=== PATIENT | female | born 1980 | race Caucasian/White ===

== ENCOUNTER 2017-12-03 16:13 | Emergency (ER) | payer OTHER ==
[2017-12-03] MEDS ORDERED: FENTANYL CITR 100 MCG/2 ML ONE (17:26)
[2017-12-03] MEDS ORDERED: NA CHLORIDE 0.9% 1,000 ML ONE (17:26)
[2017-12-03] MEDS ORDERED: PROMETHAZINE 25 MG/ML VIAL ONE (17:30)
[2017-12-03 17:32] LABS: Absolute Lymphocytes (CBC) 2.2 K/uL (0.7-4.9); Absolute Monocytes 0.5 K/uL (0.1-1.3); Absolute Neutrophil 3.1 K/uL (1.8-8.0); Basophils % 0.6 % (0-1.3); Eosinophils % 2.8 % (0-4.4); Lymphocytes % 36.6 % (15.3-44.8); MCH 30.4 pg (27.0-35.0); MCV 90.6 fL (80-100); MPV 8.9 fL (7.6-11.3); RBC Red Blood Cell Count 4.97 M/uL (3.86-4.86)
[2017-12-03 17:57] LABS: Bicarbonate 29 mEq/L (21-31); Glucose Level 102 mg/dL (65-120); Potassium 3.5 mEq/L (3.6-5.0); Sodium Level 140 mEq/L (135-145)
[2017-12-03 18:01] LABS: Urine RBC <5 /HPF (NONE SEEN)
[2017-12-03 18:02] LABS: Urine Bacteria 20-50 /HPF (<20); Urine Culture Reflex Order REFLEXED
[2017-12-03 18:06] LABS: Urine Blood NEGATIVE (NEG); Urine Glucose NEGATIVE (NEG); Urine Protein NEGATIVE (NEG); Urine Specific Gravity <1.005 (1.005-1.030)
[2017-12-03 18:07] LABS: Lipase 19 U/L (22-51)
[2017-12-03 18:13] LABS: ALT/SGPT 70 IU/L (10-60); AST/SGOT 47 IU/L (10-42); Albumin 4.3 g/dL (3.2-5.5); Alkaline Phosphatase 84 IU/L (42-121); Amylase Level 34 U/L (28-100); BUN Blood Urea Nitrogen 7 mg/dL (6-20); Bilirubin Direct < 0.1 mg/dL (0-0.2); Bilirubin Total 0.3 mg/dL (0.3-1.2); Protein, Total 7.5 g/dL (6.0-8.3)
[2017-12-03] MEDS ORDERED: KETOROLAC 30 MG/ML INJ ONE (18:45)
--- NOTE | 2017-12-03 18:50 | ER ---
Nurse's Notes [facility] Name: Brenda Lara Age: 36 yrs Sex: Female : 1980 Arrival Date: 12/03/2017 Time: 16:14 Bed 13 Private MD: Rony Dorsey E Diagnosis: Upper abdominal pain, unspecified Presentation: 12/03 16:32 Presenting complaint: Patient states: I'm having really bad pain in my stomach that aj1 shoots to my back. I haven't eaten anything all day because of the pain. I saw Dr. Randle today and he told me to come here and see Dr. Garcia. I had a HIDA scan and an ultrasound. He told me its my gallbladder and my hernia and I have some inflammation in my esophagus. Reports pain the the RUQ, N/V for the past 2 weeks. Denies diarrhea, fever. Abd is nondistended, soft, tender to RUQ. Transition of care: patient was not received from another setting of care. Onset of symptoms was November 19, 2017. Care prior to arrival: None. 16:32 Method Of Arrival: Ambulatory aj1 16:32 Acuity: BIGG 3 aj1 Triage Assessment: 16:39 General: Appears uncomfortable, Behavior is calm, cooperative. Pain: Complains of pain aj1 in right upper quadrant. 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 - Social history:: Smoking status: Patient uses tobacco products, States she quit 2 weeks ago after her symptoms started. Screenin:41 Abuse screen: Denies threats or abuse. Denies injuries from another. Nutritional aj1 screening: No deficits noted. Tuberculosis screening: No symptoms or risk factors identified. 18:33 Fall Risk None identified. aj1 Assessment: 16:41 General: Appears uncomfortable, Behavior is cooperative, appropriate for age, restless. aj1 Pain: Complains of pain in right upper quadrant Pain radiates to back Pain currently is 6 out of 10 on a pain scale. Quality of pain is described as sharp, Pain began 2 weeks ago Is continuous, Aggravated by eating. Neuro: Level of Consciousness is awake, alert, obeys commands, Oriented to person, place, time, situation, Speech is normal, Facial symmetry appears normal. Cardiovascular: Patient's skin is warm and dry. Respiratory: Airway is patent Respiratory effort is even, unlabored, Respiratory pattern is regular, symmetrical. GI: Abdomen is non-distended, Bowel sounds present X 4 quads. Abd is soft X 4 quads Abdomen is tender to palpation in right upper quadrant Guarding noted Reports upper abdominal pain, nausea, vomiting. : No signs and/or symptoms were reported regarding the genitourinary system. EENT: No signs and/or symptoms were reported regarding the EENT system. Derm: Skin is pink, warm \T\ dry. normal. Musculoskeletal: Circulation, motion, and sensation intact. 17:42 Reassessment: Patient appears in no apparent distress at this time. No changes from aj1 previously documented assessment. Patient and/or family updated on plan of care and expected duration. Pain level reassessed. Patient is alert, oriented x 3, equal unlabored respirations, skin warm/dry/pink. 18:31 Reassessment: Patient and/or family updated on plan of care and expected duration. Pain aj1 level reassessed. General: Appears in no apparent distress. uncomfortable. Neuro: Level of Consciousness is awake, alert, obeys commands, Speech is normal, Facial symmetry appears normal. Cardiovascular: Patient's skin is warm and dry. Respiratory: Airway is patent Respiratory effort is even, unlabored, Respiratory pattern is regular, symmetrical. GI: Abdomen is non-distended. Derm: Skin is pink, warm \T\ dry. normal. Musculoskeletal: Circulation, motion, and sensation intact. 19:14 Reassessment: Patient appears in no apparent distress at this time. No changes from aj1 previously documented assessment. Patient and/or family updated on plan of care and expected duration. Pain level reassessed. Patient is alert, oriented x 3, equal unlabored respirations, skin warm/dry/pink. 20:10 Reassessment: Patient appears in no apparent distress at this time. No changes from aj1 previously documented assessment. Patient and/or family updated on plan of care and expected duration. Pain level reassessed. Patient is alert, oriented x 3, equal unlabored respirations, skin warm/dry/pink. Vital Signs: 16:39 BP 153 / 99; Pulse 107; Resp 16; Temp 98.7(TE); Pulse Ox 98% on R/A; Weight 77.11 kg aj1 (R); Height 5 ft. 5 in. (165.10 cm) (R); Pain 6/10; 17:42 BP 127 / 94; Pulse 95; Resp 18; Pulse Ox 95% on R/A; aj1 19:14 BP 114 / 83; Pulse 92; Resp 18; Pulse Ox 99% ; aj1 20:10 BP 120 / 75; Pulse 88; Resp 18; Pulse Ox 98% on R/A; aj1 16:39 Body Mass Index 28.29 (77.11 kg, 165.10 cm) aj1 ED Course: 16:14 Patient arrived in ED. as 16:14 Rony Dorsey MD is Private Physician. as 16:25 [facility] snw 16:25 Rony Parekh MD is Attending Physician. snw 16:32 Alejandrina Dawson, ARINA is Primary Nurse. aj1 16:36 Triage completed. aj1 16:39 Arm band placed on. aj1 16:41 Patient has correct armband on for positive identification. Bed in low position. aj1 16:41 No provider procedures requiring assistance completed. aj1 17:26 Initial lab(s) drawn, by me, sent to lab. Urine collected: clean catch specimen, clear. dh3 Inserted saline lock: 20 gauge in right antecubital area, using aseptic technique. Blood collected. 20:11 IV discontinued, intact, bleeding controlled, No redness/swelling at site. Pressure aj1 dressing applied. Administered Medications: 17:39 Drug: NS 0.9% 1000 ml Route: IV; Rate: 1 bolus; Site: right antecubital; aj1 19:15 Follow up: IV Status: Completed infusion; IV Intake: 1000ml aj1 17:39 Drug: fentaNYL (PF) 25 mcg Route: IVP; Site: right antecubital; aj1 19:15 Follow up: Response: No adverse reaction aj1 17:39 Drug: Phenergan 6.25 mg Route: IVP; Site: right antecubital; aj1 19:16 Follow up: Response: No adverse reaction aj1 19:15 Drug: TORadol 60 mg Route: IM; Site: right gluteus; aj1 20:12 Follow up: Response: No adverse reaction aj1 Intake: 19:15 IV: 1000ml; Total: 1000ml. aj1 Outcome: 18:50 Discharge ordered by MD. vargas 20:12 Discharged to home ambulatory. aj1 20:12 Condition: good 20:12 Discharge instructions given to patient, Instructed on discharge instructions, follow up and referral plans. medication usage, Demonstrated understanding of instructions, follow-up care, medications, Prescriptions given X 4. 20:13 Patient left the ED. aj1 Signatures: Alejandrina Dawson RN RN aj1 Susy Sutton, INTERNAL GRINDER SET UP OPERATOR-C INTERNAL GRINDER SET UP OPERATOR-Stephaniew Fallon De Dios Deanna [facility]
--- NOTE | 2017-12-03 18:51 | EDPHYS ---
Physician Documentation [facility] Name: Brenda Lara Age: 36 yrs Sex: Female : 1980 Arrival Date: 12/03/2017 Time: 16:14 Bed 13 Private MD: Rony Dorsey E ED Physician Rony Parekh HPI: 12/03 16:45 This 36 yrs old Female presents to ER via Ambulatory with complaints of snw Gallbladder. 16:45 Onset: The symptoms/episode began/occurred gradually, 2 week(s) ago, and became worse snw and became persistent. Associated signs and symptoms: Pertinent positives: abdominal pain. The patient has experienced a previous episode. The patient has been recently seen by a physician: Dr. Randle with similar presenting complaints, and was sent to the [facility] Emergency Department for further evaluation. 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 - Social history:: Smoking status: Patient uses tobacco products, States she quit 2 weeks ago after her symptoms started. ROS: 16:45 Constitutional: Negative for fever, chills, and weight loss, Eyes: Negative for injury, snw pain, redness, and discharge, ENT: Negative for injury, pain, and discharge, Neck: Negative for injury, pain, and swelling, Cardiovascular: Negative for chest pain, palpitations, and edema, Respiratory: Negative for shortness of breath, cough, wheezing, and pleuritic chest pain, Back: Negative for injury and pain, : Negative for injury, bleeding, discharge, and swelling, MS/Extremity: Negative for injury and deformity, Skin: Negative for injury, rash, and discoloration, Neuro: Negative for headache, weakness, numbness, tingling, and seizure. 16:45 Abdomen/GI: Positive for abdominal pain, nausea and vomiting, abdominal cramps, anorexia. Exam: 16:44 Constitutional: This is a well developed, well nourished patient who is awake, alert, snw and in no acute distress. Head/Face: Normocephalic, atraumatic. Eyes: Pupils equal round and reactive to light, extra-ocular motions intact. Lids and lashes normal. Conjunctiva and sclera are non-icteric and not injected. Cornea within normal limits. Periorbital areas with no swelling, redness, or edema. ENT: Nares patent. No nasal discharge, no septal abnormalities noted. Tympanic membranes are normal and external auditory canals are clear. Oropharynx with no redness, swelling, or masses, exudates, or evidence of obstruction, uvula midline. Mucous membranes moist. Neck: Trachea midline, no thyromegaly or masses palpated, and no cervical lymphadenopathy. Supple, full range of motion without nuchal rigidity, or vertebral point tenderness. No Meningismus. Chest/axilla: Normal chest wall appearance and motion. Nontender with no deformity. No lesions are appreciated. Cardiovascular: Regular rate and rhythm with a normal S1 and S2. No gallops, murmurs, or rubs. Normal PMI, no JVD. No pulse deficits. Respiratory: Lungs have equal breath sounds bilaterally, clear to auscultation and percussion. No rales, rhonchi or wheezes noted. No increased work of breathing, no retractions or nasal flaring. Back: No spinal tenderness. No costovertebral tenderness. Full range of motion. Skin: Warm, dry with normal turgor. Normal color with no rashes, no lesions, and no evidence of cellulitis. MS/ Extremity: Pulses equal, no cyanosis. Neurovascular intact. Full, normal range of motion. Neuro: Awake and alert, GCS 15, oriented to person, place, time, and situation. Cranial nerves II-XII grossly intact. Motor strength 5/5 in all extremities. Sensory grossly intact. Cerebellar exam normal. Normal gait. Psych: Awake, alert, with orientation to person, place and time. Behavior, mood, and affect are within normal limits. 16:44 Abdomen/GI: Inspection: obese Bowel sounds: diminished, Palpation: moderate abdominal tenderness, in the right upper quadrant. Vital Signs: 16:39 BP 153 / 99; Pulse 107; Resp 16; Temp 98.7(TE); Pulse Ox 98% on R/A; Weight 77.11 kg aj1 (R); Height 5 ft. 5 in. (165.10 cm) (R); Pain 6/10; 17:42 BP 127 / 94; Pulse 95; Resp 18; Pulse Ox 95% on R/A; aj1 19:14 BP 114 / 83; Pulse 92; Resp 18; Pulse Ox 99% ; aj1 20:10 BP 120 / 75; Pulse 88; Resp 18; Pulse Ox 98% on R/A; aj1 16:39 Body Mass Index 28.29 (77.11 kg, 165.10 cm) aj1 MDM: 16:33 Patient medically screened. snw 18:51 Data reviewed: vital signs, nurses notes. Data interpreted: Pulse oximetry: on room air snw is 95 %. Interpretation: acceptable. Counseling: I had a detailed discussion with the patient and/or guardian regarding: the historical points, exam findings, and any diagnostic results supporting the discharge/admit diagnosis, the presence of at least one elevated blood pressure reading (>120/80) during this emergency department visit, lab results, radiology results, the need for outpatient follow up, to return to the emergency department if symptoms worsen or persist or if there are any questions or concerns that arise at home. Special discussion: Based on the patient's Hx, exam, and Dx evaluation, there is no indication for emergent surgery or inpatient Tx. It is understood by the patient/guardian that if the Sx's persist or worsen they need to return immediately for re-evaluation. I have referred the patient to see his PCP for further evaluation of high blood pressure. Based on the history and exam findings, there is no indication for further emergent testing or inpatient evaluation. I discussed with the patient/guardian the need to see the general surgeon for further evaluation of the symptoms. I discussed with the patient/guardian the need to see the primary care provider for further evaluation of the symptoms. 12/03 16:42 Order name: Amylase, Serum; Complete Time: 18:47 snw 12/03 16:42 Order name: Basic Metabolic Panel; Complete Time: 18:47 snw 12/03 16:42 Order name: CBC with Diff; Complete Time: 17:38 snw 12/03 16:42 Order name: Creatinine for Radiology; Complete Time: 18:47 snw 12/03 16:42 Order name: Hepatic Function; Complete Time: 18:47 snw 12/03 16:42 Order name: Lipase; Complete Time: 18:47 snw 12/03 16:42 Order name: Urine Microscopic Only; Complete Time: 18:02 snw 12/03 17:41 Order name: Urine Dipstick--Ancillary (enter results); Complete Time: 18:47 ag 12/03 17:41 Order name: Urine --Ancillary (enter results); Complete Time: 18:47 ag 12/03 18:03 Order name: Urine Culture EDCA 12/03 16:42 Order name: Urine Test (obtain specimen); Complete Time: 17:27 snw 12/03 16:42 Order name: IV Saline Lock; Complete Time: 17:27 snw 12/03 16:42 Order name: Labs collected and sent; Complete Time: 17:27 snw 12/03 16:42 Order name: Urine Dipstick-Ancillary (obtain specimen); Complete Time: 17:27 snw Administered Medications: 17:39 Drug: NS 0.9% 1000 ml Route: IV; Rate: 1 bolus; Site: right antecubital; aj1 19:15 Follow up: IV Status: Completed infusion; IV Intake: 1000ml aj1 17:39 Drug: fentaNYL (PF) 25 mcg Route: IVP; Site: right antecubital; aj1 19:15 Follow up: Response: No adverse reaction aj1 17:39 Drug: Phenergan 6.25 mg Route: IVP; Site: right antecubital; aj1 19:16 Follow up: Response: No adverse reaction aj1 19:15 Drug: TORadol 60 mg Route: IM; Site: right gluteus; aj1 20:12 Follow up: Response: No adverse reaction aj1 Disposition: 12/03/17 18:50 Discharged to Home. Impression: Upper abdominal pain, unspecified. - Condition is Stable. - Discharge Instructions: Abdominal Pain, Adult, Biliary Colic, Fat and Cholesterol Restricted Diet, Hypertension, Peptic Ulcer Disease. - Prescriptions for Bentyl 20 mg Oral Tablet - take 1 tablet by ORAL route every 6 hours As needed; 20 tablet. Nexium 20 mg Oral Capsule - take 1 capsule by ORAL route once daily; 20 capsule. Zofran 4 mg Oral Tablet - take 1 tablet by ORAL route every 12 hours As needed; 6 tablet. Diclofenac Sodium 75 mg Oral Tablet Sustained Release - take 1 tablet by ORAL route 2 times per day; 30 tablet. - Medication Reconciliation Form, Thank You Letter, Antibiotic Education, Prescription Opioid Use form. - Follow up: Private Physician; When: 2 - 3 days; Reason: Recheck today's complaints, Continuance of care, Re-evaluation by your physician. Follow up: Emergency Department; When: As needed; Reason: Worsening of condition. Addendum: 12/05/2017 07:39 Co-signature as Attending Physician, Rony Parekh MD I agree with the assessment and w a plan of care. Signatures: Dispatcher [employer] Alejandrina Krishna RN RN aj1 Susy Sutton, UMAIR-C SKI MOLDER-Csnw Rony Parekh MD MD tx
== END 2017-12-03 20:13 | disposition home or self-care (01) ==
LOC: ER 16:13
DX: R10.10 Upper abdominal pain, unspecified (principal); Z72.0 Tobacco use
CPT/HCPCS: 36415; 80048; 80076; 81003; 81015; 81025; 82150; 83690; 85025; 87086; 87088; 96361; 96372; 96374; 96375; 99284; J2550; J3010; J7030

== ENCOUNTER 2018-01-08 06:37 | Day surgery (SDC) | payer OTHER ==
[2018-01-07 14:00] LABS: Absolute Lymphocytes (CBC) 2.3 K/uL (0.7-4.9); Absolute Monocytes 0.6 K/uL (0.1-1.3); Absolute Neutrophil 4.1 K/uL (1.8-8.0); Basophils % 0.8 % (0-1.3); Eosinophils % 2.9 % (0-4.4); Lymphocytes % 31.8 % (15.3-44.8); MCH 30.8 pg (27.0-35.0); MCV 89.7 fL (80-100); MPV 9.5 fL (7.6-11.3); RBC Red Blood Cell Count 4.79 M/uL (3.86-4.86)
[2018-01-07 14:15] LABS: Potassium 4.1 mEq/L (3.6-5.0)
--- NOTE | 2018-01-07 14:15 | RAD REPORT ---
EXAM DESCRIPTION: Taran Glasgow (2 Views)01/07/2018 2:06 pm CLINICAL HISTORY: Abdominal pain/preop COMPARISON: 2016 FINDINGS: The lungs appear clear of acute infiltrate. The heart is normal size IMPRESSION: No acute abnormalities displayed
--- NOTE | 2018-01-07 14:33 | EKG ---
Test Date: 2018-01-07 Test Time: 13:42:44 Psychologist Military Personnel: RENETTA MEASUREMENT RESULTS: Intervals: Rate: 86 AR: 140 QRSD: 88 QT: 388 QTc: 464 [place]: P: 49 AR: 140 QRS: 30 T: 30 INTERPRETIVE STATEMENTS: Normal sinus rhythm Prolonged QT Abnormal ECG No previous ECG available for comparison Electronically Signed On 01-07-18 14:33:29 CDT by Dewayne Jimenez
[2018-01-08] MEDS ORDERED: BUPIVACAINE 0.5% Inj,MDV 50 mL VIAL ONE (06:53)
[2018-01-08] MEDS ORDERED: MIDAZOLAM HCL 2 MG/2 ML INJ ONE ×2 (06:59→09:14)
[2018-01-08] MEDS ORDERED: LIDOCAINE 2% MPF 5 ML VIAL ONE (06:59)
[2018-01-08] MEDS ORDERED: PROPOFOL 200 MG/20 ML VIAL IV ONE (06:59)
[2018-01-08] MEDS ORDERED: FENTANYL CITR 100 MCG/2 ML ONE ×2 (06:59→07:59)
[2018-01-08] MEDS ORDERED: ROCURONIUM 50 MG/5 ML VIAL IV ONE (06:59)
[2018-01-08] MEDS ORDERED: ONDANSETRON 4 MG/2 ML VIAL ONE ×2 (07:08→08:52)
[2018-01-08] MEDS ORDERED: Ringers Lactate 1,000 ML IV ONE (07:12)
[2018-01-08] MEDS ORDERED: CEFOXITIN/SWI 1gm 1 GM/10 ML SYR ONE (07:12)
[2018-01-08] MEDS ORDERED: ESMOLOL HCL 10 ML IV ONE (08:14)
[2018-01-08] MEDS ORDERED: KETOROLAC 30 MG/ML INJ ONE (08:15)
[2018-01-08] MEDS ORDERED: GLYCOPYRROLATE 0.2 MG/ML SYR ONE (08:15)
[2018-01-08] MEDS ORDERED: NEOSTIGMINE 1 MG/ML -5 ML SYRINGE ONE (08:16)
[2018-01-08] MEDS: MEPERIDINE HCL 50 MG/ML AMP ONE ×9 (08:44→09:29)
[2018-01-08] MEDS ORDERED: HYDROCODONE/APAP 7.5/325 MG TAB ONE (09:59)
--- NOTE | 2018-01-08 11:38 | OP ---
Date of Procedure: 01/08/2018 Surgeon: Jacques Garcia MD Gas Main Fitter: DIANA Dhaliwal Preoperative Diagnosis: Chronic cholecystitis and biliary dyskinesia. Postoperative Diagnosis: Chronic cholecystitis and biliary dyskinesia. Procedure: Laparoscopic cholecystectomy. Estimated Blood Loss: Minimal. Specimen: Gallbladder. Findings: As above. Anesthesia: General. Complications: None. Disposition: The patient tolerated the procedure in stable condition and taken to the Recovery in go od general condition. Procedure In Detail: The patient was brought to the OR and placed in the supine position. General a nesthesia was begun. The patient was prepped and draped in usual sterile fashion. Marcaine 0.5% was infiltrated locally. A 15-blade was used to make a 1 cm supraumbilical midline incision. Subcutane ous tissue divided. The fascia was identified and divided. A #1 Vicryl stay suture was placed. Per itoneal cavity was entered with sharp and blunt dissection. A 12 mm trocar was placed into the perit sprague cavity under direct vision. Pneumoperitoneum was established and then three 5-mm trocars were placed, 1 in the epigastrium just to the right of midline and 2 in the right subcostal region. Lapar oscopy revealed chronic inflammation of the gallbladder with some adhesions to the gallbladder, which were taken down with sharp and blunt dissection. Bleeding controlled with cautery. Fundus identifi ed, retracted superiorly. Infundibulum was identified and retracted inferolaterally. Cystic duct an d cystic artery were clearly identified with blunt dissection. Clips placed. Both structures were d ivided. Cautery used to remove the gallbladder from the liver bed. Bleeding on the liver bed was co ntrolled with cautery. The gallbladder was retrieved through the umbilicus via an EndoCatch bag. Ri t upper quadrant was irrigated. Effluent was clear. No evidence of bleeding or bile leakage appre ciated. Subsequently, all trocars were removed under direct vision. Stay sutures were tied to each other to reapproximate the fascial defect. Subcutaneous wounds were irrigated. Bleeding controlled cautery. A 3-0 chromic used to approximate the subcutaneous tissue and close the skin. Sterile dres sing was applied. The patient was awakened and taken to Recovery in good general condition. Discharge Note: The patient will go to Day Surgery and home when stable. Disposition: Home. Condition: Stable. Discharge Instructions: Resume home medications and diet. Activity as tolerated. No heavy lifting. Remove outer dressing in 2 days. Shower. Keep wound clean and dry. Keep Steri-Strips on at all t imes. Tylenol No. 3 one tablet p.o. q.4 p.r.n. pain. Follow up in my office in a week. Call for ap pointment. Incentive spirometry as ordered. PETER/SAMARA Voice ID: [id number] Report ID: [id number]
== END 2018-01-08 10:48 | disposition home or self-care (01) ==
LOC: OR 06:37
PROVIDERS: ATTEND Surgery
PROC: 0FT44ZZ Resection of Gallbladder, Percutaneous Endoscopic Approach (ICD-10-PCS; principal; 2018-01-08 07:30)
DX: K81.1 Chronic cholecystitis (principal); K82.8 Other specified diseases of gallbladder; K21.9 Gastro-esophageal reflux disease without esophagitis; F17.200 Nicotine dependence, unspecified, uncomplicated
CPT/HCPCS: 36415; 71046; 80048; 85025; 88304; 88305; 93005; J2175; J2250; J2405; J2710; J3010

== ENCOUNTER 2018-03-02 14:18 | Emergency (ER) | payer OTHER ==
--- NOTE | 2018-03-02 16:20 | EKG ---
Test Date: 2018-03-02 Test Time: 14:33:54 Stone Layout Marker: ROBERTH MEASUREMENT RESULTS: Intervals: Rate: 79 MD: 152 QRSD: 84 QT: 364 QTc: 417 [place]: P: 51 MD: 152 QRS: 49 T: 24 INTERPRETIVE STATEMENTS: Normal sinus rhythm ST & T wave abnormality, consider anterior ischemia Abnormal ECG Compared to ECG 01/07/2018 13:42:44 ST (T wave) deviation now present Possible ischemia now present Prolonged QT interval no longer present Electronically Signed On 03-02-18 16:19:43 CDT by Dewayne Jimenez
[2018-03-02] MEDS ORDERED: METHYLPREDNISOLONE 125 MG INJ ONE (16:48)
--- NOTE | 2018-03-02 16:48 | EDPHYS ---
Physician Documentation [facility] Name: Brenda Lara Age: 37 yrs Sex: Female : 1980 Arrival Date: 03/02/2018 Time: 14:21 Bed 23 Private MD: Rony Dorsey E ED Physician Mak Flor HPI: 03/02 18:30 This 37 yrs old Female presents to ER via Ambulatory with complaints of Rash, kdr Headache. 18:30 This 37 yrs old Female presents to ER via Ambulatory with complaints of Rash, kdr Headache. 18:30 The patient's rash thought to be caused by an unknown cause. The rash is located on the kdr body diffusely. The rash can be described as diffuse, erythematous, flat, macular. Onset: The symptoms/episode began/occurred 3 week(s) ago. Severity of symptoms: At their worst the symptoms were mild moderate just prior to arrival, in the emergency department the symptoms are unchanged. Treatment given at home: OTC lotion/cream steroid lotion/cream. The patient has not experienced similar symptoms in the past. The patient has not recently seen a physician. The patient has also c/o SILVA for the last four days - typical SILVA. She frequently has syncopal episodes with the SILVA and she had one today. Nothing else new or unusual. Rash began on her feet and spread to the rest of her body and there are no lesions from the chin down including her hands and feet. 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 - Social history:: Smoking status: Patient uses tobacco products, smokes one-half pack cigarettes per day. - Ebola Screening: : No symptoms or risks identified at this time. ROS: 18:30 Constitutional: Negative for fever, chills, and weight loss, Eyes: Negative for injury, kdr pain, redness, and discharge, ENT: Negative for injury, pain, and discharge, Neck: Negative for injury, pain, and swelling, Cardiovascular: Negative for chest pain, palpitations, and edema, Respiratory: Negative for shortness of breath, cough, wheezing, and pleuritic chest pain, Abdomen/GI: Negative for abdominal pain, nausea, vomiting, diarrhea, and constipation, Back: Negative for injury and pain, : Negative for injury, bleeding, discharge, and swelling, MS/Extremity: Negative for injury and deformity, Neuro: Negative for headache, weakness, numbness, tingling, and seizure activity. Psych: Negative for depression, anxiety, suicide ideation, homicidal ideation, and hallucinations, Allergy/Immunology: Negative for hives, rash, and allergies, Endocrine: Negative for neck swelling, polydipsia, polyuria, polyphagia, and marked weight changes, Hematologic/Lymphatic: Negative for swollen nodes, abnormal bleeding, and unusual bruising. 18:30 Skin: Positive for cellulitis, erythema, lesions, rash. Exam: 18:30 Constitutional: This is a well developed, well nourished patient who is awake, alert, kdr and in no acute distress. Head/Face: Normocephalic, atraumatic. Eyes: Pupils equal round and reactive to light, extra-ocular motions intact. Lids and lashes normal. Conjunctiva and sclera are non-icteric and not injected. Cornea within normal limits. Periorbital areas with no swelling, redness, or edema. Neck: Trachea midline, no thyromegaly or masses palpated, and no cervical lymphadenopathy. Supple, full range of motion without nuchal rigidity, or vertebral point tenderness. No Meningismus. Chest/axilla: Normal chest wall appearance and motion. Nontender with no deformity. No lesions are appreciated. Cardiovascular: Regular rate and rhythm with a normal S1 and S2. No gallops, murmurs, or rubs. Normal PMI, no JVD. No pulse deficits. Respiratory: Lungs have equal breath sounds bilaterally, clear to auscultation and percussion. No rales, rhonchi or wheezes noted. No increased work of breathing, no retractions or nasal flaring. Abdomen/GI: Soft, non-tender, with normal bowel sounds. No distension or tympany. No guarding or rebound. No evidence of tenderness throughout. Back: No spinal tenderness. No costovertebral tenderness. Full range of motion. MS/ Extremity: Pulses equal, no cyanosis. Neurovascular intact. Full, normal range of motion. Neuro: Awake and alert, GCS 15, oriented to person, place, time, and situation. Cranial nerves II-XII grossly intact. Motor strength 5/5 in all extremities. Sensory grossly intact. Cerebellar exam normal. Normal gait. Psych: Awake, alert, with orientation to person, place and time. Behavior, mood, and affect are within normal limits. 18:30 Skin: Appearance: normal except for affected area, rash a moderate rash is noted, rash can be described as macular, scabies, and is diffusely located. Vital Signs: 14:32 BP 127 / 93; Pulse 83; Resp 18 S; Temp 97.3(TE); Pulse Ox 98% on R/A; Weight 74.84 kg aa5 (R); Height 5 ft. 5 in. (165.10 cm) (R); Pain 6/10; 17:06 BP 126 / 92; Pulse 72; Resp 18; Pulse Ox 97% on R/A; kr2 14:32 Body Mass Index 27.46 (74.84 kg, 165.10 cm) aa5 MDM: 16:47 Patient medically screened. kdr 18:30 Data reviewed: vital signs, nurses notes, lab test result(s), radiologic studies. kdr Counseling: I had a detailed discussion with the patient and/or guardian regarding: the historical points, exam findings, and any diagnostic results supporting the discharge/admit diagnosis, lab results, radiology results, the need for outpatient follow up. Special discussion: I discussed with the patient/guardian in detail that at this point there is no indication for admission to the hospital. It is understood, however, that if the symptoms persist or worsen the patient needs to return immediately for re-evaluation. 03/02 15:49 Order name: EKG Electrocardiogram EDMS Administered Medications: 16:51 Drug: SOLU-Medrol 125 mg Route: IM; Site: right gluteus; kr2 17:06 Follow up: Response: No adverse reaction kr2 16:51 Drug: Benadryl 25 mg Route: PO; kr2 17:06 Follow up: Response: Medication administered at discharge. kr2 16:51 Drug: Pepcid 20 mg Route: PO; kr2 17:05 Follow up: Response: Medication administered at discharge. kr2 Point of Care Testing: Blood Glucose: 14:38 Blood Glucose: 94 mg/dL; aa5 Ranges: Critical Glucose Levels:Adult <50 mg/dl or >400 mg/dl <40 mg/dl or >180 mg/dl Disposition: 03/02/18 16:47 Discharged to Home. Impression: Rash and other nonspecific skin eruption. - Condition is Stable. - Discharge Instructions: Rash, [id number]. - Prescriptions for permethrin 5 % Topical cream - apply 1 application by TOPICAL route every 14 days Repeat once in 14 days leave on for 8-14 hr, then remove by thorough washing; 60 gram. Benadryl 25 mg Oral Capsule - take 1 capsule by ORAL route every 6 hours As needed; 30 tablet. Medrol (Dandy) 4 mg Oral Tablets, Dose Pack - take 1 tablet by ORAL route as directed - follow package instructions; 1 packet. Pepcid 20 mg Oral Tablet - take 1 tablet by ORAL route once daily; 20 tablet. - Medication Reconciliation Form, Thank You Letter, Antibiotic Education, Prescription Opioid Use form. - Follow up: Rony Dorsey MD; When: 2 - 3 days; Reason: If symptoms return, Further diagnostic work-up, Recheck today's complaints, Continuance of care, Re-evaluation by your physician. - Problem is an ongoing problem. - Symptoms have improved. Signatures: Dispatcher [employer] EDMS Mak Flor MD MD [facility] Mary Thomas RN RN aa5 Norma Song RN RN kr2 Corrections: (The following items were deleted from the chart) 17:06 16:47 03/02/2018 16:47 Discharged to Home. Impression: Rash and other nonspecific skin kr2 eruption. Condition is Stable. Forms are Medication Reconciliation Form, Thank You Letter, Antibiotic Education, Prescription Opioid Use. Follow up: Rony Dorsey; When: 2 - 3 days; Reason: If symptoms return, Further diagnostic work-up, Recheck today's complaints, Continuance of care, Re-evaluation by your physician. Problem is an ongoing problem. Symptoms have improved. kdr
--- NOTE | 2018-03-02 16:48 | ER ---
Nurse's Notes [facility] Name: Brenda Lara Age: 37 yrs Sex: Female : 1980 Arrival Date: 03/02/2018 Time: 14:21 Bed 23 Private MD: Rony Dorsey E Diagnosis: Rash and other nonspecific skin eruption Presentation: 03/02 14:29 Presenting complaint: Patient states: "I have this rash all over my legs and arms". Pt aa5 also c/o migraine x 3 days ago. Pt states "I think I passed out today at work because my co-workers told me, all I remember was getting dizzy and going to take a seat". Transition of care: patient was not received from another setting of care. Onset of symptoms was March 02, 2018. Risk Assessment: Do you want to hurt yourself or someone else? Patient reports no desire to harm self or others. Initial Sepsis Screen: Does the patient meet any 2 criteria? No. Patient's initial sepsis screen is negative. Does the patient have a suspected source of infection? No. Patient's initial sepsis screen is negative. Care prior to arrival: None. 14:29 Method Of Arrival: Ambulatory aa5 14:29 Acuity: BIGG 3 aa5 Triage Assessment: 16:51 Headache History: The patient has had previous headaches and this one is similar to kr2 previous episodes. General: Appears in no apparent distress. comfortable, well developed, well nourished, Behavior is calm, cooperative, appropriate for age. Pain: Complains of pain in face Pain radiates to scalp Pain currently is 8 out of 10 on a pain scale. Quality of pain is described as aching, Pain began gradually, Is continuous, Alleviated by rest, Aggravated by increased activity, Noted to be grimacing, Also complains of sleeplessness. Neuro: Level of Consciousness is awake, alert, obeys commands, Oriented to person, place, time, situation, Appropriate for age. 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 - Social history:: Smoking status: Patient uses tobacco products, smokes one-half pack cigarettes per day. - Ebola Screening: : No symptoms or risks identified at this time. Screenin:51 Abuse screen: Denies threats or abuse. Denies injuries from another. Nutritional kr2 screening: No deficits noted. Tuberculosis screening: No symptoms or risk factors identified. Fall Risk None identified. Assessment: 16:30 General: Appears in no apparent distress. comfortable, well groomed, well developed, kr2 well nourished, Behavior is calm, cooperative, appropriate for age. Pain: Complains of pain in face Pain radiates to scalp Pain currently is 8 out of 10 on a pain scale. Quality of pain is described as aching. Neuro: Level of Consciousness is awake, alert, obeys commands, Oriented to person, place, time, situation, Appropriate for age. Cardiovascular: Capillary refill < 3 seconds in bilateral fingers Patient's skin is warm and dry. Respiratory: Airway is patent Respiratory effort is even, unlabored, Respiratory pattern is regular, symmetrical, Breath sounds are clear bilaterally. GI: Abdomen is flat, non-distended. : Denies burning with urination. EENT: Nares are clear bilaterally Oral mucosa is moist. Derm: Skin is healthy with good turgor, Skin is pink, warm \\T\\ dry. Rash noted that is itchy, red, on back, abdomen, right leg and left leg. Musculoskeletal: Circulation, motion, and sensation intact. Vital Signs: 14:32 BP 127 / 93; Pulse 83; Resp 18 S; Temp 97.3(TE); Pulse Ox 98% on R/A; Weight 74.84 kg aa5 (R); Height 5 ft. 5 in. (165.10 cm) (R); Pain 6/10; 17:06 BP 126 / 92; Pulse 72; Resp 18; Pulse Ox 97% on R/A; kr2 14:32 Body Mass Index 27.46 (74.84 kg, 165.10 cm) aa5 ED Course: 14:21 Patient arrived in ED. sb2 14:22 Rony Dorsey MD is Private Physician. sb2 14:30 Triage completed. aa5 14:30 Arm band placed on. aa5 14:36 EKG completed in triage. Results shown to MD. aa5 16:28 Mak Flor MD is Attending Physician. kdr 16:46 Norma Song, RN is Primary Nurse. kr2 16:47 Rony Dorsey MD is Referral Physician. kdr 16:53 Patient has correct armband on for positive identification. Bed in low position. Call kr2 light in reach. Side rails up X 1. Pulse ox on. NIBP on. Door closed. Warm blanket given. Head of bed elevated. 17:05 No provider procedures requiring assistance completed. Patient did not have IV access kr2 during this emergency room visit. Administered Medications: 16:51 Drug: SOLU-Medrol 125 mg Route: IM; Site: right gluteus; kr2 17:06 Follow up: Response: No adverse reaction kr2 16:51 Drug: Benadryl 25 mg Route: PO; kr2 17:06 Follow up: Response: Medication administered at discharge. kr2 16:51 Drug: Pepcid 20 mg Route: PO; kr2 17:05 Follow up: Response: Medication administered at discharge. kr2 Point of Care Testing: Blood Glucose: 14:38 Blood Glucose: 94 mg/dL; aa5 Ranges: Outcome: 16:47 Discharge ordered by MD. kdr 17:05 Discharged to home ambulatory. kr2 17:05 Condition: good 17:05 Discharge instructions given to patient, Instructed on discharge instructions, follow up and referral plans. medication usage, Demonstrated understanding of instructions, follow-up care, medications, Prescriptions given X 4. 17:06 Patient left the ED. kr2 Signatures: Mak Flor MD MD [facility] Mary Thomas RN RN aa5 Norma Song, ARINA RN kr2 Natalia Mclean sb2
[2018-03-02] MEDS ORDERED: FAMOTIDINE 20 MG TAB ONE (16:50)
[2018-03-02] MEDS ORDERED: DIPHENHYDRAMINE 25 MG TAB/CAP ONE (16:50)
== END 2018-03-02 17:06 | disposition home or self-care (01) ==
LOC: ER 14:18
DX: R21 Rash and other nonspecific skin eruption (principal); G43.909 Migraine, unspecified, not intractable, without status migrainosus; M79.7 Fibromyalgia; F41.9 Anxiety disorder, unspecified; F17.210 Nicotine dependence, cigarettes, uncomplicated; R55 Syncope and collapse
CPT/HCPCS: 82962; 93005; 96372; 99283; J2930

== ENCOUNTER 2018-05-07 22:08 | Emergency (ER) | payer OTHER ==
[2018-05-07] MEDS ORDERED: METOCLOPRAMIDE 10 MG/2mL INJ ONE (23:11)
[2018-05-07 23:18] LABS: Urine Blood NEGATIVE (NEG); Urine Glucose NEGATIVE (NEG); Urine Protein NEGATIVE (NEG); Urine Specific Gravity 1.015 (1.005-1.030); Urine pH 6.5 (5.0-7.0)
[2018-05-07] MEDS ORDERED: DIPHENHYDRAMINE 50 MG/ML VIAL ONE (23:25)
[2018-05-07 23:28] LABS: Absolute Lymphocytes (CBC) 3.1 K/uL (0.7-4.9); Absolute Monocytes 0.8 K/uL (0.1-1.3); Absolute Neutrophil 4.9 K/uL (1.8-8.0); Basophils % 0.9 % (0-1.3); Eosinophils % 2.6 % (0-4.4); Hematocrit 44.3 % (36.0-45.0); Lymphocytes % 33.5 % (15.3-44.8); MCH 31.5 pg (27.0-35.0); MCV 90.7 fL (80-100); Monocytes % 9.2 % (3.3-12.3); RBC Red Blood Cell Count 4.88 M/uL (3.86-4.86)
[2018-05-07 23:40] LABS: Protime INR 1.02
[2018-05-07 23:44] LABS: BUN Blood Urea Nitrogen 13 mg/dL (7-18); Bicarbonate 29 mmol/L (21-32); Glucose Level 94 mg/dL (74-106); Magnesium 2.3 mg/dL (1.8-2.4); Potassium 3.7 mmol/L (3.5-5.1); Sodium Level 142 mmol/L (136-145); Troponin (Emerg Dept Use Only) < 0.02 ng/mL (0.0-0.045)
[2018-05-08] MEDS ORDERED: KETOROLAC 30 MG/ML INJ ONE (00:06)
--- NOTE | 2018-05-08 02:02 | EDPHYS ---
Physician Documentation [facility] Name: Brenda Lara Age: 37 yrs Sex: Female : 1980 Arrival Date: 05/07/2018 Time: 22:16 Bed 13 Private MD: ED Physician Mak Flor HPI: 05/07 23:19 This 37 yrs old Female presents to ER via Ambulatory with complaints of jr8 Headache, Chest Wall Pain. 23:19 The patient complains of pain to the diffuse. Onset: The symptoms/episode jr8 began/occurred acutely, today. Associated signs and symptoms: Pertinent positives: chest pain. The patient has not experienced similar symptoms in the past. The patient has not recently seen a physician. Patient has history of migraines but medicine not working. Stated that her chest is now hurting and has been hurting for the past couple of weeks without relief. 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 - Social history:: Smoking status: Patient uses tobacco products, smokes one-half pack cigarettes per day. - Ebola Screening: : No symptoms or risks identified at this time. ROS: 23:19 Eyes: Negative for injury, pain, redness, and discharge, ENT: Negative for injury, jr8 pain, and discharge, Neck: Negative for injury, pain, and swelling, Respiratory: Negative for shortness of breath, cough, wheezing, and pleuritic chest pain, Abdomen/GI: Negative for abdominal pain, nausea, vomiting, diarrhea, and constipation, Back: Negative for injury and pain, MS/Extremity: Negative for injury and deformity, Skin: Negative for injury, rash, and discoloration. 23:19 Cardiovascular: Positive for chest pain, Negative for edema, orthopnea, palpitations, paroxysmal nocturnal dyspnea. 23:19 Neuro: Positive for headache, Negative for altered mental status, dizziness, gait disturbance, hearing loss, loss of consciousness, numbness, seizure activity, speech changes, syncope, near syncope, tingling, tinnitus, tremor, visual changes, weakness. Exam: 23:19 Eyes: Pupils equal round and reactive to light, extra-ocular motions intact. Lids and jr8 lashes normal. Conjunctiva and sclera are non-icteric and not injected. Cornea within normal limits. Periorbital areas with no swelling, redness, or edema. ENT: Nares patent. No nasal discharge, no septal abnormalities noted. Tympanic membranes are normal and external auditory canals are clear. Oropharynx with no redness, swelling, or masses, exudates, or evidence of obstruction, uvula midline. Mucous membranes moist. Neck: Trachea midline, no thyromegaly or masses palpated, and no cervical lymphadenopathy. Supple, full range of motion without nuchal rigidity, or vertebral point tenderness. No Meningismus. Cardiovascular: Regular rate and rhythm with a normal S1 and S2. No gallops, murmurs, or rubs. Normal PMI, no JVD. No pulse deficits. Respiratory: Lungs have equal breath sounds bilaterally, clear to auscultation and percussion. No rales, rhonchi or wheezes noted. No increased work of breathing, no retractions or nasal flaring. Abdomen/GI: Soft, non-tender, with normal bowel sounds. No distension or tympany. No guarding or rebound. No evidence of tenderness throughout. Back: No spinal tenderness. No costovertebral tenderness. Full range of motion. Skin: Warm, dry with normal turgor. Normal color with no rashes, no lesions, and no evidence of cellulitis. MS/ Extremity: Pulses equal, no cyanosis. Neurovascular intact. Full, normal range of motion. Neuro: Awake and alert, GCS 15, oriented to person, place, time, and situation. Cranial nerves II-XII grossly intact. Motor strength 5/5 in all extremities. Sensory grossly intact. Cerebellar exam normal. Normal gait. 23:19 Chest/axilla: Inspection: normal, Palpation: tenderness, that is moderate, of the jr8 xyphoid area, that totally reproduces the patient's complaints. Vital Signs: 22:20 BP 115 / 83; Pulse 84; Resp 18; Temp 98.2; Pulse Ox 100% on R/A; Weight 74.84 kg (R); ak1 Height 5 ft. 5 in. (165.10 cm) (R); Pain 8/10; 23:31 BP 144 / 88; Pulse 82; Resp 15; Pulse Ox 99% on R/A; tl2 05/08 00:05 BP 132 / 81; Pulse 70; Resp 15; Pulse Ox 98% on 2 lpm NC; Pain 3/10; ak1 02:17 BP 122 / 91; Pulse 65; Resp 16; Temp 98.1; Pulse Ox 97% on R/A; Pain 0/10; ak1 05/07 22:20 Body Mass Index 27.46 (74.84 kg, 165.10 cm) ak1 MDM: 05/07 22:30 Patient medically screened. [facility] 05/08 02:00 Data reviewed: vital signs, nurses notes, lab test result(s), EKG, radiologic studies, [facility] plain films, and as a result, I will discharge patient. Data interpreted: Pulse oximetry: on room air is 98 %. Interpretation: normal. 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 Response to treatment: the patient's symptoms have markedly improved after treatment. 05/07 22:55 Order name: Basic Metabolic Panel; Complete Time: 23:49 [facility] 05/07 22:55 Order name: CBC with Diff; Complete Time: 23:49 [facility] 05/07 22:55 Order name: Magnesium; Complete Time: 23:49 [facility] 05/07 22:55 Order name: PT-INR; Complete Time: 23:49 [facility] 05/07 22:55 Order name: Troponin (emerg Dept Use Only); Complete Time: 23:49 [facility] 05/07 23:07 Order name: Urine Dipstick--Ancillary (enter results); Complete Time: 23:19 [facility] 05/07 22:33 Order name: EKG; Complete Time: 22:33 [facility] 05/07 22:33 Order name: EKG - Nurse/Tech; Complete Time: 22:54 [facility] 05/07 22:55 Order name: XRAY Chest (1 view) [facility] 05/07 22:55 Order name: Cardiac monitoring; Complete Time: 22:59 [facility] 05/07 22:55 Order name: IV Saline Lock; Complete Time: 23:14 [facility] 05/07 22:55 Order name: Labs collected and sent; Complete Time: 23:14 [facility] 05/07 22:55 Order name: O2 Per Protocol; Complete Time: 22:58 [facility] 05/07 22:55 Order name: O2 Sat Monitoring; Complete Time: 22:58 [facility] 05/07 22:55 Order name: Urine Dipstick-Ancillary (obtain specimen); Complete Time: : Administered Medications: 05/07 22:56 CANCELLED (Physician Discretion): TORadol 30 mg IVP once 23:14 Drug: Reglan 10 mg Route: IVP; Site: right antecubital; ak1 05/08 00:03 Follow up: Response: No adverse reaction mo1 05/07 23:34 Drug: Benadryl 25 mg Route: IVP; Site: right antecubital; ak1 05/08 00:03 Follow up: Response: No adverse reaction ak1 00:03 Drug: TORadol 30 mg Route: IVP; Site: right antecubital; ak1 02:18 Follow up: Response: No adverse reaction ak1 Disposition: 02:50 Co-signature as Attending Physician, Mak Flor MD I agree with the assessment and kdr plan of care. Disposition: 05/08/18 02:02 Discharged to Home. Impression: Costochondritis . - Condition is Stable. - Discharge Instructions: Costochondritis. - Prescriptions for Ibuprofen 800 mg Oral Tablet - take 1 tablet by ORAL route every 8 hours As needed take with food; 30 tablet. - Medication Reconciliation Form, Thank You Letter, Antibiotic Education, Prescription Opioid Use form. - Follow up: Private Physician; When: 2 - 3 days; Reason: Recheck today's complaints, Continuance of care, Re-evaluation by your physician. - Problem is new. - Symptoms have improved. Signatures: Dispatcher [employer] EDMS Mak Flor MD MD kdr Roszak, Josh, PA PA jr8 Dorys Angulo, RN RN ak1 Corrections: (The following items were deleted from the chart) 05/07 22:56 22:56 TORadol 30 mg IVP once ordered. jr8 jr8 05/08 02:01 05/07 23:19 Eyes: Pupils equal round and reactive to light, extra-ocular motions jr8 intact. Lids and lashes normal. Conjunctiva and sclera are non-icteric and not injected. Cornea within normal limits. Periorbital areas with no swelling, redness, or edema. ENT: Nares patent. No nasal discharge, no septal abnormalities noted. Tympanic membranes are normal and external auditory canals are clear. Oropharynx with no redness, swelling, or masses, exudates, or evidence of obstruction, uvula midline. Mucous membranes moist. Neck: Trachea midline, no thyromegaly or masses palpated, and no cervical lymphadenopathy. Supple, full range of motion without nuchal rigidity, or vertebral point tenderness. No Meningismus. Chest/axilla: Normal chest wall appearance and motion. Nontender with no deformity. No lesions are appreciated. Cardiovascular: Regular rate and rhythm with a normal S1 and S2. No gallops, murmurs, or rubs. Normal PMI, no JVD. No pulse deficits. Respiratory: Lungs have equal breath sounds bilaterally, clear to auscultation and percussion. No rales, rhonchi or wheezes noted. No increased work of breathing, no retractions or nasal flaring. Abdomen/GI: Soft, non-tender, with normal bowel sounds. No distension or tympany. No guarding or rebound. No evidence of tenderness throughout. Back: No spinal tenderness. No costovertebral tenderness. Full range of motion. Skin: Warm, dry with normal turgor. Normal color with no rashes, no lesions, and no evidence of cellulitis. MS/ Extremity: Pulses equal, no cyanosis. Neurovascular intact. Full, normal range of motion. Neuro: Awake and alert, GCS 15, oriented to person, place, time, and situation. Cranial nerves II-XII grossly intact. Motor strength 5/5 in all extremities. Sensory grossly intact. Cerebellar exam normal. Normal gait. jr8 05/08 02:23 02:02 05/08/2018 02:02 Discharged to Home. Impression: Costochondritis . Condition is ak1 Stable. Forms are Medication Reconciliation Form, Thank You Letter, Antibiotic Education, Prescription Opioid Use. Follow up: Private Physician; When: 2 - 3 days; Reason: Recheck today's complaints, Continuance of care, Re-evaluation by your physician. Problem is new. Symptoms have improved. jr8
--- NOTE | 2018-05-08 02:02 | ER ---
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 Transition of care: patient was not received from another setting of care. Onset of symptoms is unknown. Risk Assessment: Do you want to hurt yourself or someone else? Patient reports no desire to harm self or others. Initial Sepsis Screen: Does the patient meet any 2 criteria? No. Patient's initial sepsis screen is negative. Does the patient have a suspected source of infection? No. Patient's initial sepsis screen is negative. Care prior to arrival: pt took tramadol at noon and pepcid and benadryl at 1600. 22:17 Acuity: BIGG 3 ak1 22:17 Method Of Arrival: Ambulatory ak1 Triage Assessment: 22:20 Headache History: The patient has had previous headaches and this one is similar to ak1 previous episodes. General: Appears in no apparent distress. Behavior is calm, cooperative. Pain: Pain currently is 8 out of 10 on a pain scale. 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 EENT: No signs and/or symptoms were reported regarding the EENT system. 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 Gait is steady, Speech is normal, Facial symmetry appears normal. 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 Respiratory: No deficits noted. GI: No signs and/or symptoms were reported involving the gastrointestinal system. : No signs and/or symptoms were reported regarding the genitourinary system. Derm: No signs and/or symptoms reported regarding the dermatologic system. Musculoskeletal: No signs and/or symptoms reported regarding the musculoskeletal system. 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 - Social history:: Smoking status: Patient uses tobacco products, smokes one-half pack cigarettes per day. - Ebola Screening: : No symptoms or risks identified at this time. Screenin:23 Abuse screen: Denies threats or abuse. Denies injuries from another. Nutritional ak1 screening: No deficits noted. Tuberculosis screening: No symptoms or risk factors identified. Fall Risk None identified. Assessment: 22:24 Pain: Complains of pain in xyphoid area, headache. ak1 22:24 Reassessment: see triage assessment. ak1 23:34 General: pt c/o SOB and pain, ERP notified with no new orders at this time. pt placed ak1 on 2L NC for comfort. . 05/08 00:05 Reassessment: Patient appears in no apparent distress at this time. No changes from ak1 previously documented assessment. 01:16 Reassessment: Patient states symptoms have improved. pt resting with eyes closed, resp ak1 even and unlabored. will continue to monitor. . Vital Signs: 05/07 22:20 BP 115 / 83; Pulse 84; Resp 18; Temp 98.2; Pulse Ox 100% on R/A; Weight 74.84 kg (R); ak1 Height 5 ft. 5 in. (165.10 cm) (R); Pain 8/10; 23:31 BP 144 / 88; Pulse 82; Resp 15; Pulse Ox 99% on R/A; tl2 05/08 00:05 BP 132 / 81; Pulse 70; Resp 15; Pulse Ox 98% on 2 lpm NC; Pain 3/10; ak1 02:17 BP 122 / 91; Pulse 65; Resp 16; Temp 98.1; Pulse Ox 97% on R/A; Pain 0/10; ak1 05/07 22:20 Body Mass Index 27.46 (74.84 kg, 165.10 cm) ak1 Vitals: 05/07 23:31 Cardiac Rhythm Assessment Sinus rhythm. tl2 ED Course: 22:16 Patient arrived in ED. ak1 22:19 Triage completed. ak1 22:20 Arm band placed on Patient placed in an exam room, on a stretcher, on pulse oximetry, ak1 Patient notified of wait time. 22:24 Patient has correct armband on for positive identification. Bed in low position. Call ak1 light in reach. Side rails up X2. Adult w/ patient. Pulse ox on. NIBP on. 22:30 Turner Warren PA is PHCP. jr8 22:30 Mak Flor MD is Attending Physician. jr8 22:32 Dorys Angulo RN is Primary Nurse. ak1 23:20 Inserted saline lock: 20 gauge in right antecubital area, using aseptic technique. tl2 Blood collected. 23:44 X-ray completed. Portable x-ray completed in exam room. Patient tolerated procedure kw well. 23:45 XRAY Chest (1 view) In Process Unspecified. EDMS 05/08 00:04 No provider procedures requiring assistance completed. ak1 02:23 IV discontinued, intact, bleeding controlled, No redness/swelling at site. Pressure ak1 dressing applied. Administered Medications: 05/07 22:56 CANCELLED (Physician Discretion): TORadol 30 mg IVP once jr8 23:14 Drug: Reglan 10 mg Route: IVP; Site: right antecubital; ak1 05/08 00:03 Follow up: Response: No adverse reaction ak1 05/07 23:34 Drug: Benadryl 25 mg Route: IVP; Site: right antecubital; ak1 05/08 00:03 Follow up: Response: No adverse reaction ak1 00:03 Drug: TORadol 30 mg Route: IVP; Site: right antecubital; ak1 02:18 Follow up: Response: No adverse reaction ak1 Outcome: 02:02 Discharge ordered by . jr8 02:18 Discharged to home ambulatory, with family. ak1 02:18 Condition: stable 02:18 Discharge instructions given to patient, family, Instructed on discharge instructions, follow up and referral plans. no drinking with medication, no driving heavy equipment, medication usage, Demonstrated understanding of instructions, follow-up care, medications, Prescriptions given X 1. 02:23 Patient left the ED. ak1 Signatures: Dispatcher [employer] EDUT Summer Buckley Turner Case PA PA jr8 Dorys Angulo, RN RN ak1 Shelly Pickett, RN RN tl2
--- NOTE | 2018-05-08 11:01 | RAD REPORT ---
EXAM DESCRIPTION: RAD - Chest Single View - 05/07/2018 11:45 pm CLINICAL HISTORY: Chest pain COMPARISON: December 2017 TECHNIQUE: AP portable chest image was obtained 2319 hours . FINDINGS: Lung volumes are low. This accentuates central vasculature and lung markings. This accentu ates the fullness of each hilum. When adjusting for the poor inspiratory effort, an acute lung parenc hymal process is doubtful. Likewise a significant process of the hilum is unlikely. Heart and vascula ture are normal. No measurable pleural effusion and no pneumothorax. No gross bony abnormality seen. No acute aortic findings suspected. IMPRESSION: Shallow inspiration exam with no acute cardiopulmonary finding. Exam is not significantly different from the comparison. If the patient remains symptomatic, repeat i maging could be performed with optimal inspiratory effort.
--- NOTE | 2018-05-09 12:15 | EKG ---
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
== END 2018-05-08 02:23 | disposition home or self-care (01) ==
LOC: ER 22:08
DX: M94.0 Chondrocostal junction syndrome [Tietze] (principal); F17.210 Nicotine dependence, cigarettes, uncomplicated; F41.9 Anxiety disorder, unspecified; Z72.0 Tobacco use
CPT/HCPCS: 36415; 71045; 80048; 81003; 83735; 84484; 85025; 85610; 93005; 96374; 96375; 99284; J2765

== ENCOUNTER 2021-02-11 12:13 | Emergency (ER) | payer OTHER ==
--- OUTSIDE RECORDS SUMMARY | 2021-02-11 12:16 | XMS REPORT | Continuity of Care Document ---
:1980 Author Organization [facility] t Address [address] [place] [address] Care Team Providers Name Role Phone Doctor Unassigned, Name Attending Clinician Unavailable Problems This patient has no known problems. Allergies, Adverse Reactions, Alerts This patient has no known allergies or adverse reactions. Medications This patient has no known medications. Procedures This patient has no known procedures. Encounters Start End Encounter Admission Attending Care Care Encounter Source Date/Time Date/Time Type Type Clinicians Facility Department ID 2019-03-19 2019-03-19 Orders Doctor LIRA [id number] 00:00:00 00:00:00 Only UnassignedJOSE [id number] [place] [facility] [id number] 009 2016 2016 Orders Doctor LIRA [id number] 00:00:00 00:00:00 Only UnassignedBEATRICEY [id number] [place] [facility] [id number] [id number] 2015-05-25 2015-05-25 Orders Doctor LIRA [id number] 00:00:00 00:00:00 Only Unassigned, JOSE [id number] [place] [facility] [id number] [id number] 2015-04-20 2015-04-20 Orders Doctor LIRA [id number] 00:00:00 00:00:00 Only UnassignedJOSE [id number] [place] [facility] [id number] [id number] 2014-07-14 2014-07-14 Orders Doctor SORAYA [id number] 00:00:00 00:00:00 Only Unassigned, JOSE [id number] [place] [facility] [id number] [id number] 2014-07-04 2014-07-04 Orders Doctor SORAYA [id number] 00:00:00 00:00:00 Only Unassigned, JOSE [id number] [place] [facility] [id number] [id number] Results This patient has no known results.
--- NOTE | 2021-02-11 13:00 | RAD REPORT ---
EXAM DESCRIPTION: RAD - Chest Single View - 02/11/2021 12:39 pm CLINICAL HISTORY: CONGESTION COMPARISON: Portable April 2018 TECHNIQUE: AP portable chest image was obtained 02/11/2021 12:39 pm . FINDINGS: Lungs are clear. Interstitial pattern is similar to comparison. Heart and vasculature are normal. No measurable pleural effusion and no pneumothorax. No acute bony abnormality seen. No acute aortic findings suspected. IMPRESSION: No acute cardiopulmonary process. No suspicious change from comparison.
[2021-02-11] MEDS ORDERED: NA CHLORIDE 0.9% 1,000 ML ONE (13:01)
[2021-02-11] MEDS ORDERED: NA CHLORIDE 0.9% 250 ML ONE (13:31)
[2021-02-11] MEDS ORDERED: IPRATROPIUM BROM 0.5MG/2.5ML ONE (13:31)
[2021-02-11] MEDS ORDERED: METHYLPREDNISOLONE 125 MG INJ ONE (13:31)
[2021-02-11] MEDS ORDERED: ALBUTEROL 2.5 MG/3 ML NEB SOL ONE (13:31)
[2021-02-11] MEDS ORDERED: AZITHROMYCIN 500 MG INJ IVPB ONE (13:31)
[2021-02-11 13:32] LABS: Protime INR 1.06
[2021-02-11 13:38] LABS: ALT/SGPT 54 U/L (12-78); AST/SGOT 35 U/L (15-37); Albumin 3.9 g/dL (3.4-5.0); Alkaline Phosphatase 91 U/L (45-117); BUN Blood Urea Nitrogen 9 mg/dL (7-18); Bicarbonate 28 mmol/L (21-32); Bilirubin Direct 0.1 mg/dL (0-0.2); Bilirubin Total 0.4 mg/dL (0.2-1.0); Creatine Phosphokinase 110 U/L (26-192); Glucose Level 92 mg/dL (74-106); Lipase 82 U/L (73-393); Magnesium 2.6 mg/dL (1.8-2.4); NT PRO-BNP 11 pg/mL (<125); Potassium 3.7 mmol/L (3.5-5.1); Protein, Total 7.7 g/dL (6.4-8.2); Sodium Level 142 mmol/L (136-145); Troponin (Emerg Dept Use Only) < 0.02 ng/mL (0.0-0.045)
[2021-02-11 13:43] LABS: CKMB Creatine Kinase MB < 1.0 ng/mL (1.0-3.6)
[2021-02-11 13:52] LABS: Absolute Lymphocytes (CBC) 2.8 K/uL (0.7-4.9); Basophils % 0.7 % (0-1.3); Hematocrit 39.3 % (36.0-45.0); Lymphocytes % 26.6 % (15.3-44.8); MPV 10.6 fL (7.6-11.3); RBC Red Blood Cell Count 4.39 M/uL (3.86-4.86)
[2021-02-11] MEDS ORDERED: ACETAMINOPHEN 500 MG TAB ONE (14:32)
--- NOTE | 2021-02-11 14:44 | ER ---
Nurse's Notes [facility] Name: Brenda Lara Age: 40 yrs Sex: Female : 1980 Arrival Date: 02/11/2021 Time: 12:16 Bed 18 Private MD: Rony Dorsey E Diagnosis: Acute bronchitis Presentation: 02/11 12:18 Chief complaint: Patient states: "I have been coughing and having chest congestion. i jd3 have just been feeling really bad and achy all over.". Coronavirus screen: chills, cough unrelated to allergies, muscle pain, Client presents with at least one sign or symptom that may indicate coronavirus-19. Standard/surgical mask placed on the client. Provider contacted for isolation considerations. Ebola Screen: Patient negative for fever greater than or equal to 101.5 degrees Fahrenheit, and additional compatible Ebola Virus Disease symptoms. Initial Sepsis Screen: Does the patient meet any 2 criteria? No. Patient's initial sepsis screen is negative. Does the patient have a suspected source of infection? No. Patient's initial sepsis screen is negative. Risk Assessment: Do you want to hurt yourself or someone else? Patient reports no desire to harm self or others. Onset of symptoms was February 08, 2021. 12:18 Method Of Arrival: Ambulatory jd3 12:18 Acuity: BIGG 3 jd3 12:21 Note Mucinex taken this AM. 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 - Social history:: Smoking status: Patient reports the use of cigarette tobacco products, denies chronic smoking, but will smoke occasionally. - Family history:: not pertinent. Screenin:35 Abuse screen: Denies threats or abuse. Denies injuries from another. Nutritional zb screening: No deficits noted. Tuberculosis screening: No symptoms or risk factors identified. Fall Risk None identified. Assessment: 12:35 Reassessment: x-ray at bedside. zb 13:00 General: Appears uncomfortable, Behavior is calm, cooperative, appropriate for age, zb Reports chills for >3 days, fever for > 3 days, feeling ill for > 3 days, fatigue for >3 days. Pain: Complains of pain in chest Pain currently is 5 out of 10 on a pain scale. Quality of pain is described as sharp. Neuro: Level of Consciousness is awake, alert, obeys commands, Oriented to person, place, time, situation. Cardiovascular: Reports chest pain, shortness of breath, Heart tones S1 S2 present Patient's skin is warm and dry. Pulses are all present. Rhythm is regular. Respiratory: Reports cough that is productive, hacking, persistent since 4 days pain with cough pain with respiration Airway is patent Respiratory effort is even, unlabored, Respiratory pattern is regular, symmetrical. GI: No signs and/or symptoms were reported involving the gastrointestinal system. Derm: Skin is normal. Musculoskeletal: Circulation, motion, and sensation intact. Range of motion: intact in all extremities. 14:05 Reassessment: Patient appears in no apparent distress at this time. Patient and/or zb family updated on plan of care and expected duration. Pain level reassessed. Patient is alert, oriented x 3, equal unlabored respirations, skin warm/dry/pink. c/o headache notified ecp. medication ordered. Vital Signs: 12:23 BP 128 / 92; Pulse 117; Resp 19 S; Temp 97.8(TE); Pulse Ox 100% on R/A; Weight 74.84 kg jd3 (R); Height 5 ft. 5 in. (165.10 cm) (R); Pain 0/10; 13:29 BP 131 / 85; Pulse 70; Resp 18; Pulse Ox 100% on R/A; zb 14:16 BP 120 / 68; Pulse 112; Resp 16; Pulse Ox 100% on R/A; zb 12:23 Body Mass Index 27.46 (74.84 kg, 165.10 cm) jd3 Vitals: 13:29 Cardiac Rhythm Assessment Regular. zb ED Course: 12:16 Patient arrived in ED. ds1 12:16 Rony Dorsey MD is Private Physician. ds1 12:20 Triage completed. jd3 12:24 Arm band placed on. jd3 12:25 Dennis Milligan MD is Attending Physician. lucille2 12:33 Becca Melchor, RN is Primary Nurse. zb 12:35 Patient has correct armband on for positive identification. patient monitor on. Pulse zb ox on. NIBP on. Door closed. Noise minimized. 12:39 XRAY CXR (1 view) In Process Unspecified. EDMS 13:05 Initial lab(s) drawn, by me, sent to lab. EKG done, by ED staff, reviewed by Dennis Milligan MD COVID swab sent to lab. Inserted saline lock: 20 gauge in right antecubital area, using aseptic technique. Blood collected. Administered Medications: 13:03 Drug: NS 0.9% 1000 ml Route: IV; Rate: 1 bolus; Site: right antecubital; zb 14:16 Follow up: Response: No adverse reaction; IV Status: Completed infusion; IV Intake: zb 1000ml 13:27 Drug: AZITHromycin 500 mg Route: IVPB; Infused Over: 1 hrs; Site: right antecubital; zb 13:27 Drug: Albuterol - atroVENT (ipratropium) (3:1) (2.5 mg - 0.5 mg) 3 ml Route: Nebulizer; zb 14:16 Follow up: Response: No adverse reaction zb 13:27 Drug: MethylPrednisoLONE 125 mg Route: IVP; Site: right antecubital; zb 14:16 Follow up: Response: No adverse reaction zb 14:15 Drug: Tylenol 1000 mg Route: PO; zb Intake: 14:16 IV: 1000ml; Total: 1000ml. zb Outcome: 14:44 Discharge ordered by . jeanette 15:06 Patient left the ED. zb Signatures: Dispatcher [employer] EDNC Melissa Novak ds1 Ricardo Monroy RN RN jd3 Alzahri, Mohammad, MD MD ma2 Brown, Zipporah, RN RN zb
--- NOTE | 2021-02-11 14:44 | EDPHYS ---
Physician Documentation [facility] Name: Brenda Lara Age: 40 yrs Sex: Female : 1980 Arrival Date: 02/11/2021 Time: 12:16 Bed 18 Private MD: Rony Dorsey E ED Physician Dennis Milligan HPI: 02/11 13:09 This 40 yrs old Female presents to ER via Ambulatory with complaints of Chest ma2 Congestion, Cough. 13:09 The patient or guardian reports cough. Onset: The symptoms/episode began/occurred ma2 gradually, 2 day(s) ago. Severity of symptoms:. Associated signs and symptoms: Pertinent negatives: ear ache, fever, nausea. The patient has not experienced similar symptoms in the past. 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 - Social history:: Smoking status: Patient reports the use of cigarette tobacco products, denies chronic smoking, but will smoke occasionally. - Family history:: not pertinent. ROS: 13:09 Constitutional: Negative for fever, chills, and weight loss. ma2 13:09 All other systems are negative. Exam: 13:09 Constitutional: This is a well developed, well nourished patient who is awake, alert, ma2 and in no acute distress. Head/Face: Normocephalic, atraumatic. Eyes: Pupils equal round and reactive to light, extra-ocular motions intact. Lids and lashes normal. Conjunctiva and sclera are non-icteric and not injected. Cornea within normal limits. Periorbital areas with no swelling, redness, or edema. ENT: Nares patent. No nasal discharge, no septal abnormalities noted. Tympanic membranes are normal and external auditory canals are clear. Oropharynx with no redness, swelling, or masses, exudates, or evidence of obstruction, uvula midline. Mucous membranes moist. Neck: Trachea midline, no thyromegaly or masses palpated, and no cervical lymphadenopathy. Supple, full range of motion without nuchal rigidity, or vertebral point tenderness. No Meningismus. Chest/axilla: Normal chest wall appearance and motion. Nontender with no deformity. No lesions are appreciated. Cardiovascular: Regular rate and rhythm with a normal S1 and S2. No gallops, murmurs, or rubs. Normal PMI, no JVD. No pulse deficits. Respiratory: Lungs have equal breath sounds bilaterally, clear to auscultation and percussion. No rales, rhonchi or wheezes noted. No increased work of breathing, no retractions or nasal flaring. Abdomen/GI: Soft, non-tender, with normal bowel sounds. No distension or tympany. No guarding or rebound. No evidence of tenderness throughout. Skin: Warm, dry with normal turgor. Normal color with no rashes, no lesions, and no evidence of cellulitis. MS/ Extremity: Pulses equal, no cyanosis. Neurovascular intact. Full, normal range of motion. Neuro: Awake and alert, GCS 15, oriented to person, place, time, and situation. Cranial nerves II-XII grossly intact. Motor strength 5/5 in all extremities. Sensory grossly intact. Cerebellar exam normal. Normal gait. Vital Signs: 12:23 BP 128 / 92; Pulse 117; Resp 19 S; Temp 97.8(TE); Pulse Ox 100% on R/A; Weight 74.84 kg jd3 (R); Height 5 ft. 5 in. (165.10 cm) (R); Pain 0/10; 13:29 BP 131 / 85; Pulse 70; Resp 18; Pulse Ox 100% on R/A; zb 14:16 BP 120 / 68; Pulse 112; Resp 16; Pulse Ox 100% on R/A; zb 12:23 Body Mass Index 27.46 (74.84 kg, 165.10 cm) jd3 MDM: 12:25 Patient medically screened. ma2 13:09 Differential Diagnosis: Influenza Upper Respiratory Infection Sinusitis Pharyngitis. ma2 Data reviewed: vital signs, nurses notes, EMS record. Counseling: I had a detailed discussion with the patient and/or guardian regarding: the historical points, exam findings, and any diagnostic results supporting the discharge/admit diagnosis, the presence of at least one elevated blood pressure reading (>120/80) during this emergency department visit, the need for outpatient follow up. Response to treatment: the patient's symptoms have markedly improved after treatment. 02/11 12:28 Order name: BMP [facility] 02/11 12:28 Order name: CBC with Diff [facility] 02/11 12:28 Order name: Ckmb [facility] 02/11 12:28 Order name: CPK [facility] 02/11 12:28 Order name: Hepatic Function [facility] 02/11 12:28 Order name: Lipase [facility] 02/11 12:28 Order name: Magnesium [facility] 02/11 12:28 Order name: NT PRO-BNP [facility] 02/11 12:28 Order name: PT-INR; Complete Time: 14:04 [facility] 02/11 12:28 Order name: Ptt, Activated; Complete Time: 14:04 [facility] 02/11 12:28 Order name: Troponin (emerg Dept Use Only); Complete Time: 14:04 [facility] 02/11 12:28 Order name: Basic Metabolic Panel; Complete Time: 14:04 [facility] 02/11 12:28 Order name: XRAY CXR (1 view); Complete Time: 13:12 [facility] 02/11 12:28 Order name: EKG; Complete Time: 12:29 ar2 02/11 12:28 Order name: Cardiac monitoring; Complete Time: 13:04 [facility] 02/11 12:28 Order name: CKMB Creatine Kinase MB; Complete Time: 14:04 [facility] 02/11 12:28 Order name: Creatine Phosphokinase; Complete Time: 14:04 [facility] 02/11 12:28 Order name: Liver (Hepatic) Function; Complete Time: 14:04 EDMS 02/11 12:28 Order name: Lipase; Complete Time: 14:04 [facility] 02/11 12:28 Order name: Magnesium; Complete Time: 14:04 [facility] 02/11 12:28 Order name: NT PRO-BNP; Complete Time: 14:04 [facility] 02/11 13:52 Order name: CBC with Automated Diff; Complete Time: 14:04 [facility] 02/11 12:28 Order name: EKG - Nurse/Tech; Complete Time: 13:04 [facility] 02/11 12:28 Order name: IV Saline Lock; Complete Time: 13:04 ar2 02/11 12:28 Order name: Labs collected and sent; Complete Time: 13:04 ar2 02/11 12:28 Order name: O2 Per Protocol; Complete Time: 13:04 ar2 02/11 12:28 Order name: O2 Sat Monitoring; Complete Time: 13:04 ma2 Administered Medications: 13:03 Drug: NS 0.9% 1000 ml Route: IV; Rate: 1 bolus; Site: right antecubital; zb 14:16 Follow up: Response: No adverse reaction; IV Status: Completed infusion; IV Intake: zb 1000ml 13:27 Drug: AZITHromycin 500 mg Route: IVPB; Infused Over: 1 hrs; Site: right antecubital; zb 13:27 Drug: Albuterol - atroVENT (ipratropium) (3:1) (2.5 mg - 0.5 mg) 3 ml Route: Nebulizer; zb 14:16 Follow up: Response: No adverse reaction zb 13:27 Drug: MethylPrednisoLONE 125 mg Route: IVP; Site: right antecubital; zb 14:16 Follow up: Response: No adverse reaction zb 14:15 Drug: Tylenol 1000 mg Route: PO; zb Disposition: 02/11/21 14:44 Discharged to Home. Impression: Acute bronchitis. - Condition is Stable. - Discharge Instructions: Acute Bronchitis, Adult. - Prescriptions for Zithromax Z- Dandy 250 mg Oral Tablet - take 1 tablet by ORAL route as directed for 5 days Day 1 - take two (2) tablets one time. Day 2, 3, 4 , 5 take one (1) tablet once daily.; 6 tablet. Medrol (Dandy) 4 mg Oral Tablets, Dose Pack - take 1 tablet by ORAL route as directed - follow package instructions; 1 packet. Albuterol Sulfate 90 mcg/actuation - inhale 1-2 puff by INHALATION route every 4-6 hours; 1 Inhaler. Bromfed DM 2- 30-10 mg/5 mL Oral syrup - take 10 milliliter by ORAL route every 4 hours; 120 milliliter. - Medication Reconciliation Form, Thank You Letter, Antibiotic Education, Prescription Opioid Use, Work release form form. - Follow up: Private Physician; When: Tomorrow; Reason: If symptoms return, Continuance of care. Signatures: Dispatcher [employer] EDIL Ricardo Monroy RN RN jd3 Dennis Milligan MD MD ma2 Becca Melchor RN RN zb Corrections: (The following items were deleted from the chart) 13:52 12:28 CBC with Automated Diff ordered. EDIL EDMS 13:52 13:31 Manual Differential ordered. EDIL EDMS 15:06 14:44 02/11/2021 14:44 Discharged to Home. Impression: Acute bronchitis. Condition is zb Stable. Prescriptions for Zithromax Z-Dandy 250 mg Oral Tablet - take 1 tablet by ORAL route as directed for 5 days Day 1 - take two (2) tablets one time. Day 2, 3, 4 , 5 take one (1) tablet once daily.; 6 tablet, Medrol (Dandy) 4 mg Oral Tablets, Dose Pack - take 1 tablet by ORAL route as directed - follow package instructions; 1 packet, Albuterol Sulfate 90 mcg/actuation - inhale 1-2 puff by INHALATION route every 4-6 hours; 1 Inhaler. and Forms are Medication Reconciliation Form, Thank You Letter, Antibiotic Education, Prescription Opioid Use. Follow up: Private Physician; When: Tomorrow; Reason: If symptoms return, Continuance of care. ma2
[2021-02-11 15:10] VITALS: TEMP 97.8; O2SAT 100
[2021-02-11 15:13] VITALS: BP 120/68
--- NOTE | 2021-02-12 08:24 | EKG ---
Test Date: 2021-02-11 Test Time: 12:52:56 Cut Out Worker: DINESH MEASUREMENT RESULTS: Intervals: Rate: 82 LA: 140 QRSD: 84 QT: 368 QTc: 429 [place]: P: 9 LA: 140 QRS: 53 T: 25 INTERPRETIVE STATEMENTS: Normal sinus rhythm RSR' or QR pattern in V1 suggests right ventricular conduction delay T wave abnormality, consider anterior ischemia Abnormal ECG Compared to ECG 05/07/2018 22:51:13 RSR' in V1 or V2 now present T-wave abnormality now present ST (T wave) deviation no longer present Possible ischemia still present Electronically Signed On 02-12-21 08:23:50 CDT by Charles Valentin
== END 2021-02-11 15:06 | disposition home or self-care (01) ==
LOC: ER 12:13
DX: J20.9 Acute bronchitis, unspecified (principal); Z20.822 Contact with and (suspected) exposure to COVID-19; F41.9 Anxiety disorder, unspecified; F17.210 Nicotine dependence, cigarettes, uncomplicated
CPT/HCPCS: 93005; 85025; 80048; 36415; 83735; 82550; 85610; 80076; 85730; 84484; 82553; 83690; 83880; 71045; U0003; J0456; J7050; J7030; J2930; 96361; 96374; 96375; 99285

== ENCOUNTER 2022-03-23 15:29 | Inpatient (IN) | payer OTHER ==
[2022-03-23 17:02] LABS: Absolute Lymphocytes (CBC) 1.7 K/uL (0.7-4.9); Hematocrit 47.5 % (36.0-45.0); Lymphocytes % 9.6 % (15.3-44.8); MCV 92.4 fL (80-100); MPV 9.6 fL (7.6-11.3); RBC Red Blood Cell Count 5.14 M/uL (3.86-4.86)
[2022-03-23] MEDS ORDERED: NA CHLORIDE 0.9% 1,000 ML ONE (17:04)
[2022-03-23] MEDS ORDERED: ONDANSETRON 4 MG/2 ML VIAL ONE (17:04)
[2022-03-23] MEDS ORDERED: MORPHINE 4 MG/ML SYR ONE (17:04)
[2022-03-23 17:16] LABS: Albumin 3.6 g/dL (3.4-5.0); Bilirubin Total 0.5 mg/dL (0.2-1.0); Potassium 3.6 mmol/L (3.5-5.1)
--- NOTE | 2022-03-23 17:38 | RAD REPORT ---
EXAM DESCRIPTION: CT - Abdomen Pelvis W Contrast - 03/23/2022 5:21 pm CLINICAL HISTORY: Abdominal pain COMPARISON: 2018 TECHNIQUE: Computed axial tomography of the abdomen pelvis was obtained. 100 cc Isovue-300 was admin istered intravenously. Oral contrast was not requested which limits evaluation of bowel and appendix. Images of the lower pelvis are limited it is secondary to patient movement. All CT scans are performed using dose optimization technique as appropriate and may include automated exposure control or mA/KV adjustment according to patient size. FINDINGS: Fatty liver. Small cyst. Cholecystectomy Spleen, pancreas, adrenal and kidneys appear unremarkable. There is no evidence of diverticulitis. Hysterectomy. No adnexal mass seen. Mild stranding within the central mesenteric fat with small lymph nodes Small umbilical hernia with a IMPRESSION: Fatty liver Mild stranding within the central mesenteric fat with small lymph nodes probably secondary to inflamm ation. Followup CT scan 6 months would be helpful for re-evaluation
[2022-03-23] MEDS ORDERED: PROMETHAZINE INJ 25 MG/ML AMP ONE (17:52)
[2022-03-23] MEDS ORDERED: FENTANYL CITR 100 MCG/2 ML ONE (17:53)
[2022-03-23 18:01] LABS: Urine Blood 3+ (Negative); Urine Glucose Negative (Negative); Urine Protein Trace (Negative); Urine pH 6.5 (5.0-7.0)
[2022-03-23 18:19] LABS: Urine Bacteria <20 /HPF (<20)
[2022-03-23] MEDS ORDERED: CEFTRIAXONE 1000 MG/VIAL ONE (18:42)
[2022-03-23] MEDS ORDERED: NA CHLORIDE 0.9% 50 ML ONE (18:42)
--- NOTE | 2022-03-23 18:54 | ER ---
Nurse's Notes [facility] Name: Brenda Lara Age: 41 yrs Sex: Female : 1980 Arrival Date: 03/23/2022 Time: 15:54 Bed 13 Private MD: Diagnosis: Urinary Retention;Intractable pain Presentation: 03/23 15:54 Chief complaint: Urinary retention, blood in urine, and suprapubic pain upon waking hb today. Coronavirus screen: At this time, the client does not indicate any symptoms associated with coronavirus-19. Ebola Screen: No symptoms or risks identified at this time. Initial Sepsis Screen: Does the patient meet any 2 criteria? No. Patient's initial sepsis screen is negative. Does the patient have a suspected source of infection? No. Patient's initial sepsis screen is negative. Risk Assessment: Do you want to hurt yourself or someone else? Patient reports no desire to harm self or others. Onset of symptoms was March 23, 2022. 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 - Social history:: Smoking status: Patient denies any tobacco usage or history of. Screenin:06 Abuse screen: Denies threats or abuse. Nutritional screening: No deficits noted. ll1 Tuberculosis screening: No symptoms or risk factors identified. Fall Risk IV access (20 points). Total Bo Fall Scale indicates No Risk (0-24 pts). Assessment: 16:40 General: Appears uncomfortable, ill, Behavior is cooperative, appropriate for age. ll1 Pain: Complains of pain in abdomen Quality of pain is described as aching. Neuro: No deficits noted. Cardiovascular: No deficits noted. Respiratory: No deficits noted. GI: Abdomen is flat, Bowel sounds present X 4 quads. Abd is soft and non tender X 4 quads. Reports cramping. : Reports burning with urination, cramping, inability to void, blood in urine. 17:40 Reassessment: No changes from previously documented assessment. Patient and/or family ll1 updated on plan of care and expected duration. Pain level reassessed. Patient is alert, oriented x 3, equal unlabored respirations, skin warm/dry/pink. 18:40 Reassessment: No changes from previously documented assessment. Patient and/or family 1 updated on plan of care and expected duration. Pain level reassessed. Patient is alert, oriented x 3, equal unlabored respirations, skin warm/dry/pink. 21:56 Reassessment: report given to Sandi SANTA in med surg. formerly [facility] Vital Signs: 15:54 BP 119 / 88; Pulse 82; Resp 16; Temp 98.1; Pulse Ox 97% on R/A; Weight 73.03 kg; Height hb 5 ft. 5 in. (165.10 cm); Pain 5/10; 21:26 BP 122 / 75; Pulse 81; Resp 19; Pulse Ox 100% on R/A; ke1 15:54 Body Mass Index 26.79 (73.03 kg, 165.10 cm) hb ED Course: 15:54 Patient arrived in ED. hb 15:54 Sharda Valentine FNP is PHCP. 7 15:54 Anna Felipe MD is Attending Physician. jh7 15:55 Triage completed. hb 15:55 Arm band placed on. hb 16:39 Aranza Hammond, ARINA is Primary Nurse. ll1 16:40 Patient placed in an exam room, on a stretcher. ll1 17:00 Inserted saline lock: 22 gauge in right antecubital area, using aseptic technique. ll1 Blood collected. 17:06 Patient has correct armband on for positive identification. Bed in low position. Call ll1 light in reach. Side rails up X 1. Cardiac monitoring not applicable on this patient. 17:23 CT Abd/Pelvis - IV Contrast Only In Process Unspecified. EDMS 17:49 Whitley cath inserted, using sterile technique, 16 Fr., by mi, balloon inflated, to ll1 gravity drainage, urine specimen collected. 18:11 bladder scan 367. ll1 18:51 Johnathon Diaz is Hospitalizing Provider. 7 19:35 SARS-COV-2 Antigen Rapid Sent. ke1 19:49 XRAY Chest (1 view) In Process Unspecified. EDMS 21:57 No provider procedures requiring assistance completed. Patient admitted, IV remains in ke1 place. Administered Medications: 17:05 Drug: NS 0.9% 1000 ml Route: IV; Rate: 1 bolus; Site: right antecubital; 1 18:41 Follow up: Response: No adverse reaction; IV Status: Completed infusion; IV Intake: ll1 1000ml 17:05 Drug: Zofran (Ondansetron) 4 mg Route: IVP; Site: right antecubital; 1 18:42 Follow up: Response: No adverse reaction 1 17:05 Drug: morphine 4 mg Route: IVP; Infused Over: 4 mins; Site: right antecubital; 1 18:42 Follow up: Response: No adverse reaction; Pain is decreased; RASS: Alert and Calm (0) [facility] 17:48 Drug: fentaNYL (PF) 50 mcg Route: IVP; Site: right antecubital; 1 18:42 Follow up: Response: No adverse reaction [facility] 17:49 Drug: Phenergan (promethazine) 12.5 mg Route: IVP; Site: right antecubital; 1 18:43 Follow up: Response: No adverse reaction [facility] 18:41 Drug: Rocephin (cefTRIAXone) 1 grams Route: IV; Rate: 1 calculated rate; Site: right ll1 antecubital; Medication: 17:06 VIS not applicable for this client. [facility] Intake: 18:41 IV: 1000ml; Total: 1000ml. [facility] Outcome: 18:53 Decision to Hospitalize by Provider. [facility] 21:58 Admitted to Med/surg accompanied by tech. 1 21:58 Condition: stable 21:58 Instructed on the need for admit. 22:14 Patient left the ED. formerly [facility] Signatures: Dispatcher [employer] EDMS Judi Diaz RN RN hb Lewis, Lynsay, RN RN cassi1 Baltazar Patricia RN RN ke1 Sharda Valentine FNP FNP [facility]
--- NOTE | 2022-03-23 18:54 | EDPHYS ---
Physician Documentation [facility] Name: Brenda Lara Age: 41 yrs Sex: Female : 1980 Arrival Date: 03/23/2022 Time: 15:54 Bed 13 Private MD: ED Physician Anna Felipe HPI: 03/23 15:55 This 41 yrs old Female presents to ER via Ambulatory with complaints of Urinary jh7 Retention, Abdominal Pain. 15:55 Onset: The symptoms/episode began/occurred this morning. Patient reports being unable jh7 to urinate for 18 hours. States that the last time she urinated was 8 PM last night. States that she woke up and felt like she was going through labor. Reports that she is unable to urinate and has severe suprapubic pain. Also reports bilateral flank pain and left shoulder pain.. 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 - Social history:: Smoking status: Patient denies any tobacco usage or history of. ROS: 15:55 Constitutional: Negative for fever, chills, and weight loss, Neck: Negative for injury, jh7 pain, and swelling, Cardiovascular: Negative for chest pain, palpitations, and edema, Respiratory: Negative for shortness of breath, cough, wheezing, and pleuritic chest pain, Skin: Negative for injury, rash, and discoloration, Neuro: Negative for headache, weakness, numbness, tingling, and seizure. 15:55 Abdomen/GI: Positive for abdominal pain, nausea, Negative for vomiting, diarrhea. 15:55 Back: Positive for flank pain, Negative for injury or acute deformity. 15:55 : Positive for Urinary retention. 15:55 All other systems are negative. Exam: 15:55 Neck: Trachea midline, no thyromegaly or masses palpated, and no cervical jh7 lymphadenopathy. Supple, full range of motion without nuchal rigidity, or vertebral point tenderness. No Meningismus. Cardiovascular: Regular rate and rhythm with a normal S1 and S2. No gallops, murmurs, or rubs. Normal PMI, no JVD. No pulse deficits. Respiratory: Lungs have equal breath sounds bilaterally, clear to auscultation and percussion. No rales, rhonchi or wheezes noted. No increased work of breathing, no retractions or nasal flaring. Skin: Warm, dry with normal turgor. Normal color with no rashes, no lesions, and no evidence of cellulitis. MS/ Extremity: Pulses equal, no cyanosis. Neurovascular intact. Full, normal range of motion. Neuro: Awake and alert, GCS 15, oriented to person, place, time, and situation. Normal gait. 15:55 Constitutional: The patient appears alert, awake, uncomfortable. 15:55 Abdomen/GI: Inspection: abdomen appears normal, Bowel sounds: normal, Palpation: moderate abdominal tenderness, in the suprapubic area. 15:55 : CVA tenderness, noted bilaterally, Bladder: tenderness, that is moderate. Vital Signs: 15:54 BP 119 / 88; Pulse 82; Resp 16; Temp 98.1; Pulse Ox 97% on R/A; Weight 73.03 kg; Height hb 5 ft. 5 in. (165.10 cm); Pain 5/10; 21:26 BP 122 / 75; Pulse 81; Resp 19; Pulse Ox 100% on R/A; ke1 15:54 Body Mass Index 26.79 (73.03 kg, 165.10 cm) hb MDM: 16:53 Patient medically screened. [facility] 18:45 Differential diagnosis: bacterial infection, UTI, Nephrolithiasis. Data reviewed: vital [facility] signs, nurses notes, lab test result(s), EKG, radiologic studies, CT scan. Data interpreted: Pulse oximetry: is 97 %. Interpretation: normal. Counseling: I had a detailed discussion with the patient and/or guardian regarding: the historical points, exam findings, and any diagnostic results supporting the discharge/admit diagnosis, the need for further work-up and treatment in the hospital. Response to treatment: the patient's symptoms have mildly improved after treatment. ED course: Discussed case with AMA Blum. Agreed to admit the patient to Dr. Diaz under observation status.. 03/23 16:26 Order name: CBC with Diff; Complete Time: 17:13 [facility] 03/23 16:26 Order name: CMP; Complete Time: 17:28 [facility] 03/23 16:26 Order name: Lipase; Complete Time: 17:28 7 03/23 16:26 Order name: Urine Microscopic Only; Complete Time: 18:26 7 30 18:01 Order name: Urine Dipstick-Ancillary; Complete Time: 18:03 [facility] 03/23 18:22 Order name: Urine Culture; Complete Time: 08:03 [facility] 03/23 16:26 Order name: CT Abd/Pelvis - IV Contrast Only; Complete Time: 17:41 7 30 18:30 Order name: XRAY Chest (1 view); Complete Time: 08:03 7 03/23 19:25 Order name: SARS-COV-2 Antigen Rapid; Complete Time: 19:59 EDMS 03/23 16:26 Order name: IV Saline Lock; Complete Time: 16:54 7 03/23 16:26 Order name: Labs collected and sent; Complete Time: 16:54 7 03/23 16:26 Order name: Urine Dipstick-Ancillary (obtain specimen); Complete Time: 17:49 [facility] 03/23 16:26 Order name: Urine Test (obtain specimen); Complete Time: 17:49 7 03/23 16:56 Order name: Bladder Scanner; Complete Time: 17:48 7 30 17:41 Order name: Whitley; Complete Time: 17:48 [facility] 03/23 18:30 Order name: EKG; Complete Time: 18:32 jh7 EC:55 Rate is 62 beats/min. Rhythm is regular. QRS [place] is Normal. [place] interval is normal at jh7 170 msec. QRS interval is normal at 90 msec. QT interval is normal at 402 msec. No Q waves. T waves are Inverted in leads V1, V2, V3, V4, V5. Clinical impression: NSR w/ Non-specific ST/T Changes. Administered Medications: 17:05 Drug: NS 0.9% 1000 ml Route: IV; Rate: 1 bolus; Site: right antecubital; ll1 18:41 Follow up: Response: No adverse reaction; IV Status: Completed infusion; IV Intake: ll1 1000ml 17:05 Drug: Zofran (Ondansetron) 4 mg Route: IVP; Site: right antecubital; ll1 18:42 Follow up: Response: No adverse reaction ll1 17:05 Drug: morphine 4 mg Route: IVP; Infused Over: 4 mins; Site: right antecubital; ll1 18:42 Follow up: Response: No adverse reaction; Pain is decreased; RASS: Alert and Calm (0) ll1 17:48 Drug: fentaNYL (PF) 50 mcg Route: IVP; Site: right antecubital; ll1 18:42 Follow up: Response: No adverse reaction ll1 17:49 Drug: Phenergan (promethazine) 12.5 mg Route: IVP; Site: right antecubital; ll1 18:43 Follow up: Response: No adverse reaction ll1 18:41 Drug: Rocephin (cefTRIAXone) 1 grams Route: IV; Rate: 1 calculated rate; Site: right ll1 antecubital; Disposition: 03/24 14:42 Co-signature as Attending Physician, Anna Felipe MD STAFF ATTESTATION STATEMENT I sd2 was immediately available on-site in the Emergency Department for consultation in the care of the patient. Anna Felipe MD. Disposition Summary: 03/23/22 18:53 Hospitalization Ordered Hospitalization Status: Observation [facility] Provider: Johnathon Diaz [facility] Location: Telemetry/MedSurg (observation) [facility] Condition: Stable [facility] Problem: new [facility] Symptoms: have improved [facility] Bed/Room Type: Standard [facility] Room Assignment: [facility](03/23/22 21:37) Diagnosis - Urinary Retention [facility] - Intractable pain [facility] Forms: - Medication Reconciliation Form [facility] - SBAR form [facility] Signatures: Dispatcher [employer] EDOK Bettina Jiménez RN RN mw Baxter, Heather, RN RN hb Lewis, Lynsay, RN RN ll1 Ness Melchor PA PA sb3 Sharda Valentine FNP FNP [facility] Anna Felipe MD MD sd2 Corrections: (The following items were deleted from the chart) 03/23 19:25 18:56 SARS-COV-2 RT PCR+[id number].BRZ ordered. EDOK EDMS 21:37 18:53 [facility] mw
[2022-03-23 19:37] LABS: SARS-CoV-2 Antigen Rapid Res Negative (Negative)
--- NOTE | 2022-03-23 20:13 | P.HP ---
Certification for Inpatient Patient admitted to: Observation With expected LOS: <2 Midnights Patient will require the following post-hospital care: None Practitioner: I am a practitioner with admitting privileges, knowledge of patient current condition, hospital course, and medical plan of care. Services: Services provided to patient in accordance with Admission requirements found in Title 42 Section 412.3 of the Code of Federal Regulations Patient History Date of Service: 03/23/22 Reason for admission: Urinary Retention, UTI, Intractable Pain History of Present Illness: Patient is a 41-year-old with anxiety, fibromyalgia, migraines who presented to the ED with complaints of urinary retention. Patient reports that she last urinated yesterday at 2030. She woke up this morning with pain/pressure in her suprapubic region, tried to urinate, and saw blood when she wiped. She tried to urinate several times without any output. She reports severe pain that radiates to her flank and shoulder. Vital signs stable upon arrival to ED. WBC 17.9. Urine positive for UTI. CT abd/pelv showed Mild stranding within the central mesenteric fat with small lymph nodes probably secondary to inflammation. Bladder scan showed 367 cc urine. Glass was placed. She was additionally given 1L fluid, morphine, zofran, fentanyl, phenergan, and rocephin in ED. Patient still complaining of severe pain. ED provider wishes to admit patient for observation. Allergies No Known Allergies Allergy (Verified 01/07/18 13:31) Home medications list reviewed: Yes Home Medications: ALPRAZolam [Xanax] 0.5 mg PO BEDTIME PRN 01/07/18 Doxepin HCl [Sinequan] 10 mg PO BEDTIME 01/07/18 Fluoxetine HCl [Prozac] 40 mg PO DAILY 01/07/18 21/Iron Fu/Folic Acid [ Complete Caplet] 1 each PO DAILY 01/07/18 Simvastatin 20 mg PO DAILY 01/07/18 - Past Medical/Surgical History Diabetic: No -: Fibromyalgia -: Anxiety -: Migraines -: Hysterectomy -: Cholecystectomy -: Hiatal Hernia Repair -: Breast Reduction Psychosocial/ Personal History: Patient is . - Family History Father -: Stroke - Social History Smoking Status: Current every day smoker Alcohol use: Yes CD- Drugs: No Caffeine use: Yes Place of Residence: Home Review of Systems Genitourinary: Retention, As per HPI Physical Examination - Physical Exam General: Alert, In no apparent distress, Oriented x3 HEENT: Atraumatic, PERRLA, EOMI, Sclerae nonicteric Neck: Supple, 2+ carotid pulse no bruit, No LAD, Without JVD or thyroid abnormality Respiratory: Clear to auscultation bilaterally, Normal air movement Cardiovascular: Regular rate/rhythm, Normal S1 S2 Gastrointestinal: Normal bowel sounds, No tenderness Musculoskeletal: No tenderness Integumentary: No rashes Neurological: Normal speech, Normal strength at 5/5 x4 extr, Normal tone, Normal affect Urinary: Glass catheter - Studies Laboratory Data (last 24 hrs) 03/23/22 14:45: Sodium 138, Potassium 3.6, BUN 9, Creatinine 0.95, Glucose 100, Total Bilirubin 0.5, AST 20, ALT 42, Alkaline Phosphatase 69, Lipase 72 L 03/23/22 14:45: WBC 17.9 H, Hgb 16.0 H, Hct 47.5 H, Plt Count 284 Assessment and Plan - Problems (Diagnosis) (1) Urinary retention Current Visit: Yes Status: Acute (2) UTI (urinary tract infection) Current Visit: Yes Status: Acute Qualifiers: Urinary tract infection type: acute cystitis Hematuria presence: with hematuria Qualified Code(s): N30.01 - Acute cystitis with hematuria (3) Intractable pain Current Visit: Yes Status: Acute - Plan -Continue rocephin for UTI -Pain management as needed -Reassess in the morning, remove glass, and have patient void on her own -Monitor and replete electrolytes per protocol -Reconcile and continue home medications -Lovenox for VTE ppx -Full code Discharge Plan: Home Plan to discharge in: 24 Hours - Advance Directives Does patient have a Living Will: No Does patient have a Durable POA for Healthcare: No - Code Status/Comfort Care Code Status Assessed: Yes (Full) Critical Care: No Time Spent Managing Pts Care (In Minutes): 50
[2022-03-23] MEDS ORDERED: ACETAMINOPHEN 500 MG TAB PO PRN (20:22)
[2022-03-23] MEDS ORDERED: ZOLPIDEM TARTRATE 5 MG TABLET PO PRN (20:22)
--- NOTE | 2022-03-23 20:27 | RAD REPORT ---
EXAM DESCRIPTION: Taran Single View03/23/2022 7:47 pm CLINICAL HISTORY: Abdominal pain COMPARISON: 2020 FINDINGS: The lungs appear clear of acute infiltrate. The heart is normal size IMPRESSION: No acute abnormalities displayed
[2022-03-23] MEDS: ONDANSETRON 4 MG/2 ML VIAL IV PRN (22:36)
[2022-03-23] MEDS: MORPHINE 2 MG/ML SYR IV PRN (22:36)
[2022-03-24 01:42] VITALS: BMI 26.8
[2022-03-24 04:22] LABS: Absolute Lymphocytes (CBC) 2.1 K/uL (0.7-4.9); Hematocrit 41.6 % (36.0-45.0); Lymphocytes % 17.5 % (15.3-44.8); MCV 93.3 fL (80-100); RBC Red Blood Cell Count 4.45 M/uL (3.86-4.86)
[2022-03-24 04:26] LABS: Magnesium 2.1 mg/dL (1.8-2.4); Phosphorus 2.9 mg/dL (2.5-4.9); Potassium 3.8 mmol/L (3.5-5.1)
[2022-03-24] MEDS: ONDANSETRON 4 MG/2 ML VIAL IV PRN (06:28)
[2022-03-24] MEDS: MORPHINE 2 MG/ML SYR IV PRN (06:29)
[2022-03-24] MEDS: CEFTRIAXONE 1,000 MG in NA CHLORIDE 0.9% 50 ML IVPB SCH (08:35)
[2022-03-24] MEDS: ENOXAPARIN 40 MG/0.4 ML SQ SCH (08:35)
[2022-03-24] MEDS ORDERED: POTASSIUM 25 MEQ EFFERV TAB PO ONE (09:00)
[2022-03-24 12:59] VITALS: O2SAT 94
[2022-03-24] MEDS: HYDROCODONE/APAP 5/325 MG TAB PO PRN ×2 (13:02→18:43)
--- NOTE | 2022-03-24 13:03 | P.PN ---
Subjective Date of Service: 03/24/22 Chief Complaint: Urinary Retention, UTI, Intractable Pain Patient complaining of low back pain. No fever. Whitley catheter is in place. No hematuria. Physical Examination - Vital Signs Temperature: 97.0 F Blood Pressure: 103/62 Pulse: 63 Respirations: 14 Pulse Ox (%): 94 - Studies Laboratory Data (last 24 hrs) 03/23/22 14:45: Sodium 138, Potassium 3.6, BUN 9, Creatinine 0.95, Glucose 100, Total Bilirubin 0.5, AST 20, ALT 42, Alkaline Phosphatase 69, Lipase 72 L 03/23/22 14:45: WBC 17.9 H, Hgb 16.0 H, Hct 47.5 H, Plt Count 284 Assessment And Plan - Current Problems (Diagnosis) (1) UTI (urinary tract infection) Current Visit: Yes Status: Acute Qualifiers: Urinary tract infection type: acute cystitis Hematuria presence: with hematuria Qualified Code(s): N30.01 - Acute cystitis with hematuria (2) Urinary retention Current Visit: Yes Status: Acute - Plan Physical Exam General: Alert, In no apparent distress, Oriented x3 Respiratory: Clear to auscultation bilaterally, Normal air movement Cardiovascular: Regular rate/rhythm, Normal S1 S2 Gastrointestinal: Normal bowel sounds, No tenderness Musculoskeletal: No tenderness Integumentary: No rashes Neurological: Normal speech, Normal strength at 5/5 x4 extr. Urinary: Whitley catheter Continue IV Rocephin Urine culture growing gram-negative rods. Follow urine culture. Voiding trial in am Supportive measures-[place] as needed for pain.
[2022-03-24] MEDS: ATORVASTATIN 20 MG TAB PO SCH (21:34)
[2022-03-24] MEDS: ZOLPIDEM TARTRATE 5 MG TABLET PO SCH (21:34)
[2022-03-24] MEDS: GABAPENTIN 300 MG CAP PO SCH (21:34)
[2022-03-25] MEDS: HYDROCODONE/APAP 5/325 MG TAB PO PRN ×4 (00:22→21:01)
[2022-03-25] MEDS: MORPHINE 2 MG/ML SYR IV PRN (02:05)
[2022-03-25] MEDS: ONDANSETRON 4 MG/2 ML VIAL IV PRN (02:05)
[2022-03-25 04:16] LABS: Absolute Lymphocytes (CBC) 2.3 K/uL (0.7-4.9); Lymphocytes % 38.3 % (15.3-44.8); MCV 92.1 fL (80-100); MPV 9.3 fL (7.6-11.3); RBC Red Blood Cell Count 4.45 M/uL (3.86-4.86)
[2022-03-25 04:33] LABS: Potassium 3.8 mmol/L (3.5-5.1)
[2022-03-25] MEDS ORDERED: POTASSIUM 25 MEQ EFFERV TAB PO ONE (06:13)
[2022-03-25] MEDS ORDERED: CEFTRIAXONE 1000 MG/VIAL ONE (08:21)
[2022-03-25] MEDS: CEFTRIAXONE 1,000 MG in NA CHLORIDE 0.9% 50 ML IVPB SCH (08:21)
[2022-03-25] MEDS: FLUOXETINE 20 MG CAP PO SCH (08:23)
[2022-03-25] MEDS: ENOXAPARIN 40 MG/0.4 ML SQ SCH (08:23)
[2022-03-25] MEDS: METOPROLOL XL 50 MG TAB PO SCH (08:23)
[2022-03-25] MEDS ORDERED: NA CHLORIDE 0.9% 50 ML ONE (08:24)
--- NOTE | 2022-03-25 12:24 | EKG ---
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
--- NOTE | 2022-03-25 17:10 | P.PN ---
Subjective Date of Service: 03/25/22 Chief Complaint: Urinary Retention, UTI, Intractable Pain Patient states she feels better No fever. Whitley catheter was removed for voiding trial. Patient complaining of dribbling. Physical Examination - Vital Signs Temperature: 97.4 F Blood Pressure: 109/67 Pulse: 55 Respirations: 14 Pulse Ox (%): 95 - Physical Exam General: Alert, In no apparent distress, Oriented x3 HEENT: Mucous membr. moist/pink Neck: Supple, JVD not distended Respiratory: Clear to auscultation bilaterally, Normal air movement Cardiovascular: No edema, Regular rate/rhythm, Normal S1 S2, No murmurs Gastrointestinal: Normal bowel sounds, Soft and benign, Non-distended, No tenderness Musculoskeletal: No swelling Integumentary: No rashes, No cyanosis Neurological: Normal strength at 5/5 x4 extr, Cranial nerves 3-12 intact - Studies Laboratory Data (last 24 hrs) 03/25/22 03:52: WBC 6.1 D, Hgb 14.2, Hct 41.0, Plt Count 249 03/25/22 03:52: Sodium 140, Potassium 3.8, BUN 11, Creatinine 0.77, Glucose 89 Microbiology Data (last 24 hrs): 03/23/22 18:00 Clean Catch Urine [place] Count - Final >100,000 CFU/ML. 03/23/22 18:00 Clean Catch Urine - Final Escherichia Coli Assessment And Plan - Current Problems (Diagnosis) (1) UTI (urinary tract infection) Current Visit: Yes Status: Acute Qualifiers: Urinary tract infection type: acute cystitis Hematuria presence: with hematuria Qualified Code(s): N30.01 - Acute cystitis with hematuria (2) Urinary retention Current Visit: Yes Status: Acute - Plan Is growing pansensitive E. coli Continue IV Rocephin Supportive measures-[place] as needed for pain. Flomax. Urology consult.
[2022-03-25] MEDS ORDERED: TAMSULOSIN 0.4 MG SR CAP PO SCH (21:00)
[2022-03-25] MEDS: ATORVASTATIN 20 MG TAB PO SCH (21:01)
[2022-03-25] MEDS: GABAPENTIN 300 MG CAP PO SCH (21:01)
[2022-03-25] MEDS: ZOLPIDEM TARTRATE 5 MG TABLET PO SCH (21:02)
[2022-03-26] MEDS: MORPHINE 2 MG/ML SYR IV PRN (00:39)
[2022-03-26 04:07] LABS: Potassium 3.5 mmol/L (3.5-5.1)
[2022-03-26] MEDS ORDERED: POTASSIUM CL SA 10 MEQ TAB PO ONE (09:00)
[2022-03-26] MEDS: ENOXAPARIN 40 MG/0.4 ML SQ SCH (09:20)
[2022-03-26] MEDS: METOPROLOL XL 50 MG TAB PO SCH (09:21)
[2022-03-26] MEDS: FLUOXETINE 20 MG CAP PO SCH (09:22)
[2022-03-26] MEDS: CEFTRIAXONE 1,000 MG in NA CHLORIDE 0.9% 50 ML IVPB SCH (09:24)
[2022-03-26] MEDS: HYDROCODONE/APAP 5/325 MG TAB PO PRN (09:33)
[2022-03-26 12:09] VITALS: BP 97/59; TEMP 97.2
--- NOTE | 2022-03-26 21:10 | P.DS ---
Admission Date: 03/25/22 Discharge Date: 03/26/22 Disposition: ROUTINE DISCHARGE Discharge Condition: GOOD Reason for Admission: Urinary Retention, UTI, Intractable Pain Brief History of Present Illness: 41-year-old with anxiety, fibromyalgia, migraines who presented to the ED with complaints of urinary retention. Patient reports that she last urinated yesterday at 2030. She woke up this morning with pain/pressure in her suprapubic region, tried to urinate, and saw blood when she wiped. She tried to urinate several times without any output. She reports severe pain that radiates to her flank and shoulder. Vital signs stable upon arrival to ED. WBC 17.9. Urine positive for UTI. CT abd/pelv showed Mild stranding within the central mesenteric fat with small lymph nodes probably secondary to inflammation. Bladder scan showed 367 cc urine. Whitley was placed. She was additionally given 1L fluid, morphine, zofran, fentanyl, phenergan, and rocephin in ED. Patient still complaining of severe pain. ED provider wishes to admit patient for observation. Hospital Course: Problem List UTI Urinary retention Intractable pain Patient was found to have acute cystitis. Urine culture grew parada-sensitive e.coli. She had improvement of her symptoms with IV rocephin. Whitley catheter was removed and patient noted slight hematuria and urinary retention. Urology was consulted, however patient had improvement and resolution of her urinary retention overnight. She was also treated with flomax. She had improvement of her symptoms, remained afebrile, and was deemed stable for discharge home. Continue with 7 days of antibiotics, 2 weeks of flomax. Follow up with PCP within 3-5 days. Follow up with Urology, Dr. Guzman, if needed. Vital Signs/Physical Exam: Temp Pulse Resp BP Pulse Ox 97.2 F 60 14 97/59 L 92 03/26/22 12:00 03/26/22 12:00 03/26/22 12:00 03/26/22 12:03/26/22 12:00 General: Alert, In no apparent distress, Oriented x3 HEENT: EOMI, Sclerae nonicteric Neck: Supple, No LAD Respiratory: Clear to auscultation bilaterally, Normal air movement Cardiovascular: No edema, Regular rate/rhythm Gastrointestinal: Soft and benign, Non-distended, Tenderness (mild suprapubic tenderness) Integumentary: No rashes, No significant lesion Laboratory Data at Discharge: WBC 6.1 K/uL (4.3-10.9) D 03/25/22 03:52 Hgb 14.2 g/dL (12.0-15.0) 03/25/22 03:52 Hct 41.0 % (36.0-45.0) 03/25/22 03:52 Plt Count 249 K/uL (152-406) 03/25/22 03:52 Sodium 138 mmol/L (136-145) 03/26/22 03:16 Potassium Cancelled 03/26/22 Unknown BUN 10 mg/dL (7-18) 03/26/22 03:16 Creatinine 0.88 mg/dL (0.55-1.3) 03/26/22 03:16 Glucose 112 mg/dL (74-106) H 03/26/22 03:16 Phosphorus 2.9 mg/dL (2.5-4.9) 03/24/22 03:48 Magnesium 2.0 mg/dL (1.8-2.4) 03/26/22 03:16 Total Bilirubin 0.5 mg/dL (0.2-1.0) 03/23/22 14:45 AST 20 U/L (15-37) 03/23/22 14:45 ALT 42 U/L (12-78) 03/23/22 14:45 Alkaline Phosphatase 69 U/L (45-117) 03/23/22 14:45 Lipase 72 U/L (73-393) L 03/23/22 14:45 Home Medications: Atorvastatin Calcium [Lipitor*] 20 mg PO BEDTIME 03/24/22 Fluoxetine HCl [Prozac] 20 mg PO DAILY 03/24/22 Gabapentin 300 mg PO BEDTIME 03/24/22 Metoprolol Succinate [Toprol Xl*] 50 mg PO DAILY 03/24/22 Zolpidem Tartrate [Ambien*] 5 mg PO BEDTIME 03/24/22 Hydrocodone 5/APAP 325 [[place] 5/325*] 1 tab PO Q8H PRN #10 tab 03/26/22 Tamsulosin [Flomax*] 0.4 mg PO BEDTIME 14 Days #14 cap 03/26/22 levoFLOXacin [Levaquin] 750 mg PO DAILY 7 Days #7 tab 03/26/22 New Medications: Tamsulosin [Flomax*] 0.4 mg PO BEDTIME 14 Days #14 cap levoFLOXacin [Levaquin] 750 mg PO DAILY 7 Days #7 tab Hydrocodone 5/APAP 325 [[place] 5/325*] 1 tab PO Q8H PRN #10 tab PRN Reason: Pain Scale 5-7 (Moderate) Diet: Regular Activity: Ad terrell Followup: Rony Dorsey MD [Primary Care Provider] - Time spent managing pt's care (in minutes): 45
== END 2022-03-26 13:07 | disposition home or self-care (01) | DRG 690 ==
LOC: ER 15:29 → ERHOLD 20:07 → 2ND 21:55 → OBSVTOIN 03-25 10:59
PROVIDERS: ADMIT Internal Medicine; ATTEND Internal Medicine
DX: N30.01 Acute cystitis with hematuria (principal); B96.20 Unspecified Escherichia coli [E. coli] as the cause of diseases classified elsewhere; R33.9 Retention of urine, unspecified; F41.9 Anxiety disorder, unspecified; M79.7 Fibromyalgia; G43.909 Migraine, unspecified, not intractable, without status migrainosus; Z20.822 Contact with and (suspected) exposure to COVID-19
CPT/HCPCS: 36415; 51702; 71045; 74177; 80048; 80053; 81003; 81015; 82565; 83690; 83735; 84100; 85025; 87077; 87086; 87088; 87186; 87811; 93005; 96361; 96374; 96375; 99285; G0378; J1650; J2270; J2405; J2550; J3010; J7030; Q9967

== ENCOUNTER → 2023-11-04 | Emergency (ER) | payer OTHER ==
[~2023-11-04] MED LIST: FENTANYL CITR 100 MCG/2 ML ONE; HYDROCODONE/APAP 10/325 TAB ONE; KETOROLAC 30 MG/ML INJ ONE; METHOCARBAMOL 1,000 MG/10 ML VIAL ONE; NA CHLORIDE 0.9% 1,000 ML ONE; NA CHLORIDE 0.9% 100 ML ONE; ONDANSETRON 4 MG/2 ML VIAL ONE; PROMETHAZINE 25 MG TABLET ONE; dexAMETHasone 10 MG/ML VIAL ONE; methocarbamoL 750 MG TAB ONE
--- OUTSIDE RECORDS SUMMARY | 2023-11-04 23:05 | XMS REPORT | Continuity of Care Document ---
Author Name Unknown Address [address] [facility] [place] [address] [facility] thconnect Address [address] [facility] [address] [place] [address] Care Team Providers Care Broodmare Barn Groom Name Role Phone Sunny King Primary Care Physician [phone] Julio King Attending Clinician Unavailable JOHANA DIETZ Attending Clinician Unav ailLANDRY Corrales Attending Clinician Unavailable DIANNE PADILLA Attending Clinician Unavailab JOHANNA Ribeiro Attending Clinician Unava illiudmila MEI MD Attending Clinician Unavailab SYDNEE Holm Attending Clinician UnavailSydnee Cottrell MD December Attending Clinician [phone] EMMA Attending Clinician Unavailable Doctor Unassigned, Elberta Attending Clinician U CHARLY Fagan Attending Clinician Unavailable Dorothy Alegria Admitting Clinician Unavailab akilah CARTER Admitting Clinician Unavailable Payers Payer Name Policy Type Policy Number Effective Date Expirati on Date Source AET[employer] MP [employer] S[employer] 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 ON 9 [id number] 2023 00:00:00 [facility] [id number] 2023 00:00:00 Problems Condition Name Condition Details Condition Category Status Onset Date Resolution Date Last Treatment Date Treating Clinician Comments Source Hyperlipid emia Hyperlipid emia Disease Active 09-17 00:00: 00 Yovana Sezachold - Externa l Heart valve disorder Heart valve disorder Disease Active 09-17 00:00: 00 Yovana Seybold - Externa l Hypertensi on Hypertensi on Disease Active 09-17 00:00: 00 Yovana Seybold - Externa l Migraine Migraine Disease Active 09-17 00:00: 00 Yovana Seybold - Externa l Thyroid disease Thyroid disease Disease Active 09-17 00:00: 00 Yovana Seybold - Externa l Bicuspid aortic valve (HHS-HCC) Bicuspid aortic valve (HHS-HCC) Disease Active 09-17 00:00: 00 Yovana Singhold - Externa l Macromasti a Macromasti a Disease Active 2017-08 00:00: 00 Overview: Formattin g of this note might be different from the original. 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 Added automatic ally from request for surgery [id number] [facility] Anxiety and depression Anxiety and depression Disease Active 09-22 00:00: 00 [facility] Chronic pain syndrome Chronic pain syndrome Disease Active 09-22 00:00: 00 [facility] Chronic pelvic pain in female Chronic pelvic pain in female Disease Active 2013-08 00:00: 00 [facility] Tobacco user Tobacco user Disease Active 2013-08 00:00: 00 [facility] Depression Depression Disease Active 2013-08 00:00: 00 [facility] Female genital symptoms Female genital symptoms Disease Active 05-17 00:00: 00 Overview: Formattin g of this note might be different from the original. ICD10 Diagnosis Term Travel Rn Or Utility [facility] Endometrio sis Endometrio sis Disease Active 05-17 00:00: 00 [facility] Status post hysterecto my Status post hysterecto my Disease Active 05-17 00:00: 00 [facility] Allergic rhinitis Non-season al allergic rhinitis, unspecifie d trigger Problem [facility] [id number] Cervical pain (neck) Problem [facility] [id number] Other obesity due to excess calories Problem [facility] [id number] Intractabl e migraine without aura and without status migrainosu s Problem [facility] [id number] Acquired hypothyroi dism Problem [facility] [id number] Pain, joint, shoulder, right Problem [facility] [id number] Fibromyalg ia Problem [facility] [id number] Insomnia, unspecifie d type Problem [facility] [id number] Anxiety with depression Problem [facility] [id number] Mixed hyperlipid emia Problem [facility] [id number] Elevated hemoglobin Problem [facility] [id number] Acute pain of right shoulder Problem [facility] Allergies, Adverse Reactions, Alerts Allergy Name Allergy Type Status Severity Reaction(s) Onset Date Inactive Date Treating Clinician Comments Source NO KNOWN ALLERGIE S Drug Class Active [facility] Social History Social Habit Start Date Stop Date Quantity Comments Source Sexual orientation 2023-09-04 13:32:48 Heterosexual (finding) Yovana Espitia - External Gender identity [facility] History of tobacco use Cigarette Smoker Yovana mancilla - External Alcohol intake 2023-09-17 00:00:00 2023-09-17 00:00:00 Current drinker of alcohol (finding) Yovana Espitia - External Cigarettes smoked current (pack per day) - Reported 2023-09-16 00:00:00 2023-09-16 00:00:00 Yovana Espitia - External Cigarette pack-years 2023-09-16 00:00:00 2023-09-16 00:00:00 Yovana Espitia - External Tobacco use and exposure 2023-09-16 00:00:00 2023-09-16 00:00:00 Smokeless tobacco non-user Yovana Espitia - Yonas History of Social function 2023-09-16 00:00:00 2023-09-16 00:00:00 Yovana Espitia - External Alcohol Comment 2023-09-16 00:00:00 2023-09-16 00:00:00 socially Yovana Espitia - External Tobacco Comment 2023-03-10 00:00:00 2023-03-10 00:00:00 quit Augut 2018 [facility] Sex Assigned At 1980 00:00:00 1980 00:00:00 F Yovana Espitia - External Smoking Status Start Date Stop Date Source Occasional tobacco smoker 2023-09-16 00:00:00 Yovana Branham Current Smoker 2023-05-21 00:00:00 [facility] Ex-smoker 2023-03-10 00:00:00 2023-03-10 00:00:00 [facility] Medications Ordered Medication Name Filled Medication Name Start Date Stop Date Current Medication? Ordering Clinician Indication Dosage Frequency Signature (SIG) Comments Components Source Thyroid (OUTSOLE CASER Thyroid) 15 MG oral Tablet 09-17 14:22: 53 09-17 00:00 :00 No 1{tbl} Take 1 tablet by mouth daily. Yovana cadena Zolpidem Tartrate 10 MG oral Tablet 09-17 14:09: 34 Yes 10mg QD Take 1 tablet (10 mg total) by mouth nightly as needed for sleep. Yovana cadena Atorvastati n Calcium 20 MG oral Tablet 09-17 14:09: 34 Yes 20mg Take 1 tablet (20 mg total) by mouth daily. Yovana cadena Fluoxetine HCl 40 MG oral Capsule 09-17 14:09: 34 Yes 40mg Take 1 capsule (40 mg total) by mouth daily. Yovana cadena Gabapentin 300 MG oral Capsule 09-17 14:09: 34 Yes 300mg Take 1 capsule (300 mg total) by mouth every night at bedtime. Yovana cadena Sumatriptan Succinate 50 MG oral Tablet 09-17 14:09: 34 Yes 25mg Take 0.5 tablets (25 mg total) by mouth once as needed for migraine (May repeat in 2 hours if unresolved . Do not exceed 200 mg in 24 hours.). Yovana cadena Metoprolol Succinate 50 MG oral Capsule ER 24 Hour Sprinkle 09-17 14:09: 34 Yes 50mg Take 50 mg by mouth daily. Yovana cadena Montelukast (SINGULAIR) 10 MG oral Tablet tablet 09-17 14:09: 34 Yes 10mg Take 1 tablet (10 mg total) by mouth nightly. Yovana cadena Semaglutide (0.25 or 0.5 mg/dose) 2 mg/3 mL SQ Solution Pen-Injecto r 09-17 14:09: 34 Yes .5mg Inject 0.5 mg into the skin once a week. Yovana cadena Levothyroxi ne Sodium 25 MCG oral Tablet 09-17 00:00: 00 Yes [id number] 25ug Take 1 tablet (25 mcg total) by mouth daily. Yovana cadena Zolpidem Tartrate 10 MG Zolpidem Tartrate 10 MG 03-28 00:00: 00 No Zolpidem Tartrate 10 MG Zolpidem Tartrate 10 MG Zolpidem Tartrate 10 MG 2022-0 - 00:00: 00 No Zolpidem Tartrate 10 MG Zolpidem Tartrate 10 MG Zolpidem Tartrate 10 MG 2022-0 8- 00:00: 00 No Zolpidem Tartrate 10 MG Zolpidem Tartrate 10 MG Zolpidem Tartrate 10 MG 2022-0 - 00:00: 00 No Zolpidem Tartrate 10 MG Zolpidem Tartrate 10 MG Zolpidem Tartrate 10 MG 2022-0 8-04 00:00: 00 No Zolpidem Tartrate 10 MG Zolpidem Tartrate 10 MG Zolpidem Tartrate 10 MG 2023-0 8-04 00:00: 00 No Zolpidem Tartrate 10 MG Zolpidem Tartrate 10 MG Zolpidem Tartrate 10 MG 2023-0 8-04 00:00: 00 No Zolpidem Tartrate 10 MG Zolpidem Tartrate 10 MG Zolpidem Tartrate 10 MG 2023-0 8-04 00:00: 00 No Zolpidem Tartrate 10 MG Zolpidem Tartrate 10 MG Zolpidem Tartrate 10 MG 2023-0 8-04 00:00: 00 No Zolpidem Tartrate 10 MG Zolpidem Tartrate 10 MG Zolpidem Tartrate 10 MG 2023-0 8-04 00:00: 00 No Zolpidem Tartrate 10 MG Zolpidem Tartrate 10 MG Zolpidem Tartrate 10 MG 3-0 8-04 00:00: 00 No Zolpidem Tartrate 10 MG Zolpidem Tartrate 10 MG Zolpidem Tartrate 10 MG 3-0 8-04 00:00: 00 No Zolpidem Tartrate 10 MG Zolpidem Tartrate 10 MG Zolpidem Tartrate 10 MG 3-0 8-04 00:00: 00 No Zolpidem Tartrate 10 MG Zolpidem Tartrate 10 MG Zolpidem Tartrate 10 MG 3-0 8-04 00:00: 00 No Zolpidem Tartrate 10 MG Zolpidem Tartrate 10 MG Zolpidem Tartrate 10 MG 3-0 8-04 00:00: 00 No Zolpidem Tartrate 10 MG Zolpidem Tartrate 10 MG Zolpidem Tartrate 10 MG 2023-0 8-04 00:00: 00 No Zolpidem Tartrate 10 MG Zolpidem Tartrate 10 MG Zolpidem Tartrate 10 MG 2023-0 8-04 00:00: 00 No Zolpidem Tartrate 10 MG Zolpidem Tartrate 10 MG Zolpidem Tartrate 10 MG 2023-0 8-04 00:00: 00 No Zolpidem Tartrate 10 MG Zolpidem Tartrate 10 MG Zolpidem Tartrate 10 MG 2023-0 8-04 00:00: 00 No Zolpidem Tartrate 10 MG Zolpidem Tartrate 10 MG Zolpidem Tartrate 10 MG 2022-0 8-04 00:00: 00 No Zolpidem Tartrate 10 MG Lidocaine Lidocaine 0 7-20 00:00: 00 No 5mL [facility] Kenalog (Triamcinol one) Kenalog (Triamcinol one) 0 7-20 00:00: 00 No 2mL [facility] Lidocaine Lidocaine 0 -20 00:00: 00 No 5mL [facility] Kenalog (Triamcinol one) Kenalog (Triamcinol one) 0 - 00:00: 00 No 2mL [facility] Lidocaine Lidocaine 0 03-13 00:00: 00 No 5mL [facility] Kenalog (Triamcinol one) Kenalog (Triamcinol one) 0 - 00:00: 00 No 2mL [facility] Lidocaine Lidocaine 0 03-13 00:00: 00 No 5mL [facility] Kenalog (Triamcinol one) Kenalog (Triamcinol one) 0 03-13 00:00: 00 No 2mL [facility] Lidocaine Lidocaine 0 20 00:00: 00 No 5mL [facility] Kenalog (Triamcinol one) Kenalog (Triamcinol one) 0 20 00:00: 00 No 2mL [facility] Lidocaine Lidocaine 0 20 00:00: 00 No 5mL [facility] Kenalog (Triamcinol one) Kenalog (Triamcinol one) 0 -20 00:00: 00 No 2mL [facility] Lidocaine Lidocaine 0 -20 00:00: 00 No 5mL [facility] Kenalog (Triamcinol one) Kenalog (Triamcinol one) 0 03-13 00:00: 00 No 2mL [facility] Lidocaine Lidocaine 0 03-13 00:00: 00 No 5mL [facility] Kenalog (Triamcinol one) Kenalog (Triamcinol one) 0 03-13 00:00: 00 No 2mL [facility] Lidocaine Lidocaine 03-13 00:00: 00 No 5mL [facility] Kenalog (Triamcinol one) Kenalog (Triamcinol one) 0 03-13 00:00: 00 No 2mL [facility] Lidocaine Lidocaine 03-13 00:00: 00 No 5mL [facility] Kenalog (Triamcinol one) Kenalog (Triamcinol one) 0 03-13 00:00: 00 No 2mL [facility] Lidocaine Lidocaine 03-13 00:00: 00 No 5mL [facility] Kenalog (Triamcinol one) Kenalog (Triamcinol one) 03-13 00:00: 00 No 2mL [facility] Lidocaine Lidocaine 03-13 00:00: 00 No 5mL [facility] Kenalog (Triamcinol one) Kenalog (Triamcinol one) 0 03-13 00:00: 00 No 2mL [facility] Lidocaine Lidocaine 03-13 00:00: 00 No 5mL [facility] Kenalog (Triamcinol one) Kenalog (Triamcinol one) 0 03-13 00:00: 00 No 2mL [facility] Lidocaine Lidocaine 03-13 00:00: 00 No 5mL [facility] Kenalog (Triamcinol one) Kenalog (Triamcinol one) 0 03-13 00:00: 00 No 2mL [facility] Lidocaine Lidocaine 0 03-13 00:00: 00 No 5mL [facility] Kenalog (Triamcinol one) Kenalog (Triamcinol one) 0 03-13 00:00: 00 No 2mL [facility] Lidocaine Lidocaine 0 03-13 00:00: 00 No 5mL [facility] Kenalog (Triamcinol one) Kenalog (Triamcinol one) 0 03-13 00:00: 00 No 2mL [facility] Lidocaine Lidocaine 0 03-13 00:00: 00 No 5mL [facility] Kenalog (Triamcinol one) Kenalog (Triamcinol one) 0 03-13 00:00: 00 No 2mL [facility] Lidocaine Lidocaine 03-13 00:00: 00 No 5mL [facility] Kenalog (Triamcinol one) Kenalog (Triamcinol one) 0 03-13 00:00: 00 No 2mL [facility] Lidocaine Lidocaine 0 03-13 00:00: 00 No 5mL [facility] Kenalog (Triamcinol one) Kenalog (Triamcinol one) 0 03-13 00:00: 00 No 2mL [facility] Lidocaine Lidocaine 03-13 00:00: 00 No 5mL [facility] Kenalog (Triamcinol one) Kenalog (Triamcinol one) 0 03-13 00:00: 00 No 2mL [facility] hydrocortis one 2.5 % cream 03-10 00:00: 00 Yes [id number] Apply to area(s) 2 (two) times daily as needed for Rash. Stop when clear, restart if rash returns. [facility] hydrocortis one 2.5 % cream 03-10 00:00: 00 Yes [id number] Apply to area(s) 2 (two) times daily as needed for Rash. Stop when clear, restart if rash returns. [facility] hydrocortis one 2.5 % cream 0 03-10 00:00: 00 Yes [id number] Apply to area(s) 2 (two) times daily as needed for Rash. Stop when clear, restart if rash returns. [facility] hydrocortis one 2.5 % cream 0 03-10 00:00: 00 Yes [id number] Apply to area(s) 2 (two) times daily as needed for Rash. Stop when clear, restart if rash returns. [facility] Naproxen 250 MG Naproxen 250 MG 2022-0 03-06 00:00: 00 No BID Naproxen 250 MG Naproxen 250 MG Naproxen 250 MG 2022-0 03-06 00:00: 00 No BID Naproxen 250 MG Naproxen 250 MG Naproxen 250 MG 2022-0 03-06 00:00: 00 No BID Naproxen 250 MG Naproxen 250 MG Naproxen 250 MG 2022-0 03-06 00:00: 00 No BID Naproxen 250 MG Naproxen 250 MG Naproxen 250 MG 2022-0 03-06 00:00: 00 No BID Naproxen 250 MG Naproxen 250 MG Naproxen 250 MG 2022-0 03-06 00:00: 00 No BID Naproxen 250 MG Naproxen 250 MG Naproxen 250 MG 2022-0 03-06 00:00: 00 No BID Naproxen 250 MG Naproxen 250 MG Naproxen 250 MG 2022-0 03-06 00:00: 00 No BID Naproxen 250 MG Naproxen 250 MG Naproxen 250 MG 3-0 - 00:00: 00 No BID Naproxen 250 MG Naproxen 250 MG Naproxen 250 MG 3-0 03-06 00:00: 00 No BID Naproxen 250 MG Naproxen 250 MG Naproxen 250 MG 3-0 13 00:00: 00 No BID Naproxen 250 MG Naproxen 250 MG Naproxen 250 MG 3-0 03-06 00:00: 00 No BID Naproxen 250 MG Naproxen 250 MG Naproxen 250 MG 3-0 7-13 00:00: 00 No BID Naproxen 250 MG Naproxen 250 MG Naproxen 250 MG 3-0 7-13 00:00: 00 No BID Naproxen 250 MG Naproxen 250 MG Naproxen 250 MG 3-0 7-13 00:00: 00 No BID Naproxen 250 MG Naproxen 250 MG Naproxen 250 MG 3-0 7-13 00:00: 00 No BID Naproxen 250 MG Naproxen 250 MG Naproxen 250 MG 3-0 7-13 00:00: 00 No BID Naproxen 250 MG Naproxen 250 MG Naproxen 250 MG 3-0 7-13 00:00: 00 No BID Naproxen 250 MG Naproxen 250 MG Naproxen 250 MG 3-0 7-13 00:00: 00 No BID Naproxen 250 MG Naproxen 250 MG Naproxen 250 MG 3-0 7-13 00:00: 00 No BID Naproxen 250 MG Cephalexin 500 MG Cephalexin 500 MG 2022-0 2- 00:00: 00 10-01 00:00 :00 No 1{capsu le} QID Cephalexin 500 MG Cephalexin 500 MG Cephalexin 500 MG 2022-0 2- 00:00: 00 10-01 00:00 :00 No 1{capsu le} QID Cephalexin 500 MG Zolpidem Tartrate 10 MG Zolpidem Tartrate 10 MG 2021-1 - 00:00: 00 No 1{table t_at_be dtime_a s_neede d} QD Zolpidem Tartrate 10 MG Zolpidem Tartrate 10 MG Zolpidem Tartrate 10 MG 2021-1 2- 00:00: 00 No 1{table t_at_be dtime_a s_neede d} QD Zolpidem Tartrate 10 MG Zolpidem Tartrate 10 MG Zolpidem Tartrate 10 MG 2021-1 2-21 00:00: 00 No 1{table t_at_be dtime_a s_neede d} QD Zolpidem Tartrate 10 MG Zolpidem Tartrate 10 MG Zolpidem Tartrate 10 MG 2021-08 2-21 00:00: 00 No 1{table t_at_be dtime_a s_neede d} QD Zolpidem Tartrate 10 MG Zolpidem Tartrate 10 MG Zolpidem Tartrate 10 MG 2021-08 2- 00:00: 00 No 1{table t_at_be dtime_a s_neede d} QD Zolpidem Tartrate 10 MG Zolpidem Tartrate 10 MG Zolpidem Tartrate 10 MG 2021-08 2- 00:00: 00 No 1{table t_at_be dtime_a s_neede d} QD Zolpidem Tartrate 10 MG Benzonatate 200 MG Benzonatate 200 MG 2021-08 2- 00:00: 00 08-24 00:00 :00 No 1{capsu le} TID Benzonatat e 200 MG Benzonatate 200 MG Benzonatate 200 MG 2021-08 2- 00:00: 00 08-24 00:00 :00 No 1{capsu le} TID Benzonatat e 200 MG Benzonatate 200 MG Benzonatate 200 MG 2021-08 2- 00:00: 00 08-24 00:00 :00 No 1{capsu le} TID Benzonatat e 200 MG predniSONE 20 MG predniSONE 20 MG 2021-08 2-20 00:00: 00 08-18 00:00 :00 No QD predniSONE 20 MG Azithromyci n 250 MG Azithromyci n 250 MG 2021-08 2-20 00:00: 00 08-18 00:00 :00 No QD Azithromyc in 250 MG predniSONE 20 MG predniSONE 20 MG 2021-08 2-20 00:00: 00 08-18 00:00 :00 No QD predniSONE 20 MG Azithromyci n 250 MG Azithromyci n 250 MG 2021-08 2-20 00:00: 00 08-18 00:00 :00 No QD Azithromyc in 250 MG predniSONE 20 MG predniSONE 20 MG 2021- 2-20 00:00: 00 08-18 00:00 :00 No QD predniSONE 20 MG Azithromyci n 250 MG Azithromyci n 250 MG 2021-08 2-20 00:00: 00 08-18 00:00 :00 No QD Azithromyc in 250 MG predniSONE 20 MG predniSONE 20 MG 2021-08 2-20 00:00: 00 08-18 00:00 :00 No QD predniSONE 20 MG Azithromyci n 250 MG Azithromyci n 250 MG 2021-08 2-20 00:00: 00 08-18 00:00 :00 No QD Azithromyc in 250 MG methylPREDN ISolone 4 MG methylPREDN ISolone 4 MG 2021-08 00:00: 00 07-30 00:00 :00 No QD methylPRED NISolone 4 MG Azithromyci n 250 MG Azithromyci n 250 MG 2021-08 00:00: 00 07-29 00:00 :00 No QD Azithromyc in 250 MG Amoxicillin -Pot Clavulanate 875-125 MG Amoxicillin -Pot Clavulanate 875-125 MG 2021-08 00:00: 00 07-25 00:00 :00 No 1{table t} BID Amoxicilli n-Pot Clavulanat e 875-125 MG Amoxicillin -Pot Clavulanate 875-125 MG Amoxicillin -Pot Clavulanate 875-125 MG 2021-08 00:00: 00 07-25 00:00 :00 No 1{table t} BID Amoxicilli n-Pot Clavulanat e 875-125 MG Amoxicillin -Pot Clavulanate 875-125 MG Amoxicillin -Pot Clavulanate 875-125 MG 2021-08 00:00: 00 07-25 00:00 :00 No 1{table t} BID Amoxicilli n-Pot Clavulanat e 875-125 MG Zolpidem Tartrate 10 MG Zolpidem Tartrate 10 MG 2021-08 0- 00:00: 00 No 1{table t_at_be dtime_a s_neede d} QD Zolpidem Tartrate 10 MG Kenalog (Triamcinol one) Kenalog (Triamcinol one) 2021-08 0 00:00: 00 No 40mg [facility] Zolpidem Tartrate 10 MG Zolpidem Tartrate 10 MG 2021-08 0 00:00: 00 No 1{table t_at_be dtime_a s_neede d} QD Zolpidem Tartrate 10 MG Kenalog (Triamcinol one) Kenalog (Triamcinol one) 2021-08 0 00:00: 00 No 40mg [facility] Zolpidem Tartrate 10 MG Zolpidem Tartrate 10 MG 2021-08 0 00:00: 00 No 1{table t_at_be dtime_a s_neede d} QD Zolpidem Tartrate 10 MG Kenalog (Triamcinol one) Kenalog (Triamcinol one) 2021-08 00:00: 00 No 40mg [facility] Zolpidem Tartrate 10 MG Zolpidem Tartrate 10 MG 2021-08 00:00: 00 No 1{table t_at_be dtime_a s_neede d} QD Zolpidem Tartrate 10 MG Kenalog (Triamcinol one) Kenalog (Triamcinol one) 2021-08 00:00: 00 No 40mg [facility] Zolpidem Tartrate 10 MG Zolpidem Tartrate 10 MG 2021-08 00:00: 00 No 1{table t_at_be dtime_a s_neede d} QD Zolpidem Tartrate 10 MG Kenalog (Triamcinol one) Kenalog (Triamcinol one) 2021-08 0 00:00: 00 No 40mg [facility] Zolpidem Tartrate 10 MG Zolpidem Tartrate 10 MG 2021-08 00:00: 00 No 1{table t_at_be dtime_a s_neede d} QD Zolpidem Tartrate 10 MG Kenalog (Triamcinol one) Kenalog (Triamcinol one) 2021-08 0 00:00: 00 No 40mg [facility] Kenalog (Triamcinol one) Kenalog (Triamcinol one) 2021-08 0- 00:00: 00 No 40mg [facility] Kenalog (Triamcinol one) Kenalog (Triamcinol one) 2021-08 0- 00:00: 00 No 40mg [facility] Kenalog (Triamcinol one) Kenalog (Triamcinol one) 2021-08 0- 00:00: 00 No 40mg [facility] Kenalog (Triamcinol one) Kenalog (Triamcinol one) 2021-08 0 00:00: 00 No 40mg [facility] Kenalog (Triamcinol one) Kenalog (Triamcinol one) 2021-08 0 00:00: 00 No 40mg [facility] Kenalog (Triamcinol one) Kenalog (Triamcinol one) 2021-08 0 00:00: 00 No 40mg [facility] Kenalog (Triamcinol one) Kenalog (Triamcinol one) 2021-08 0 00:00: 00 No 40mg [facility] Kenalog (Triamcinol one) Kenalog (Triamcinol one) 2021-08 0 00:00: 00 No 40mg [facility] Kenalog (Triamcinol one) Kenalog (Triamcinol one) 2021-08 0- 00:00: 00 No 40mg [facility] Kenalog (Triamcinol one) Kenalog (Triamcinol one) 2021-08 0- 00:00: 00 No 40mg [facility] Kenalog (Triamcinol one) Kenalog (Triamcinol one) 2021-08 0- 00:00: 00 No 40mg [facility] Kenalog (Triamcinol one) Kenalog (Triamcinol one) 2021-08 0- 00:00: 00 No 40mg [facility] Kenalog (Triamcinol one) Kenalog (Triamcinol one) 2021-08 0- 00:00: 00 No 40mg [facility] Kenalog (Triamcinol one) Kenalog (Triamcinol one) 2021-08 0 00:00: 00 No 40mg [facility] Kenalog (Triamcinol one) Kenalog (Triamcinol one) 2021-08 0- 00:00: 00 No 40mg [facility] Kenalog (Triamcinol one) Kenalog (Triamcinol one) 2021-08 0 00:00: 00 No 40mg [facility] Kenalog (Triamcinol one) Kenalog (Triamcinol one) 2021-08 0 00:00: 00 No 40mg [facility] Kenalog (Triamcinol one) Kenalog (Triamcinol one) 2021-08 0 00:00: 00 No 40mg [facility] Kenalog (Triamcinol one) Kenalog (Triamcinol one) 2021-08 0 00:00: 00 No 40mg [facility] Kenalog (Triamcinol one) Kenalog (Triamcinol one) 2021-08 0 00:00: 00 No 40mg [facility] Kenalog (Triamcinol one) Kenalog (Triamcinol one) 2021-08 0- 00:00: 00 No 40mg [facility] Kenalog (Triamcinol one) Kenalog (Triamcinol one) 2021-08 0- 00:00: 00 No 40mg [facility] Kenalog (Triamcinol one) Kenalog (Triamcinol one) 2021-08 0- 00:00: 00 No 40mg [facility] Kenalog (Triamcinol one) Kenalog (Triamcinol one) 2021-08 0 00:00: 00 No 40mg [facility] Kenalog (Triamcinol one) Kenalog (Triamcinol one) 2021-08 0 00:00: 00 No 40mg [facility] Kenalog (Triamcinol one) Kenalog (Triamcinol one) 2021-08 0 00:00: 00 No 40mg [facility] Zolpidem Tartrate 10 MG Zolpidem Tartrate 10 MG 0 04-22 00:00: 00 No 1{table t_at_be dtime_a s_neede d} QD Zolpidem Tartrate 10 MG Zolpidem Tartrate 10 MG Zolpidem Tartrate 10 MG 2021-0 04-22 00:00: 00 No 1{table t_at_be dtime_a s_neede d} QD Zolpidem Tartrate 10 MG Zolpidem Tartrate 10 MG Zolpidem Tartrate 10 MG 0 04-22 00:00: 00 No 1{table t_at_be dtime_a s_neede d} QD Zolpidem Tartrate 10 MG Zolpidem Tartrate 10 MG Zolpidem Tartrate 10 MG 0 04-22 00:00: 00 No 1{table t_at_be dtime_a s_neede d} QD Zolpidem Tartrate 10 MG Zolpidem Tartrate 10 MG Zolpidem Tartrate 10 MG 04-22 00:00: 00 No 1{table t_at_be dtime_a s_neede d} QD Zolpidem Tartrate 10 MG ALPRAZolam 0.5 mg tablet 2017-08 17:05: 07 Yes .5mg Take 0.5 mg by mouth 3 (three) times daily. [facility] ALPRAZolam 0.5 mg tablet 2017-08 11:05: 07 Yes .5mg Take 0.5 mg by mouth 3 (three) times daily. [facility] ALPRAZolam 0.5 mg tablet 2017-08 11:05: 07 Yes .5mg Take 0.5 mg by mouth 3 (three) times daily. [facility] ALPRAZolam 0.5 mg tablet 2017-08 11:05: 07 Yes .5mg Take 0.5 mg by mouth 3 (three) times daily. [facility] ALPRAZolam 0.5 mg tablet 2017-08 11:05: 07 Yes .5mg Take 0.5 mg by mouth 3 (three) times daily. [facility] ALPRAZolam 0.5 mg tablet 2017-08 11:05: 07 Yes .5mg Take 0.5 mg by mouth 3 (three) times daily. [facility] bacitracin 500 unit/gram ointment 2017-08 00:00: 00 Yes Apply to affected area(s) 3 (three) times daily. Apply to open area R breast TID [facility] bacitracin 500 unit/gram ointment 2017-08 00:00: 00 Yes Apply to affected area(s) 3 (three) times daily. Apply to open area R breast TID [facility] bacitracin 500 unit/gram ointment 2017-08 00:00: 00 Yes Apply to affected area(s) 3 (three) times daily. Apply to open area R breast TID [facility] bacitracin 500 unit/gram ointment 2017-08 00:00: 00 Yes Apply to affected area(s) 3 (three) times daily. Apply to open area R breast TID [facility] bacitracin 500 unit/gram ointment 2017-08 00:00: 00 Yes Apply to affected area(s) 3 (three) times daily. Apply to open area R breast TID [facility] bacitracin 500 unit/gram ointment 2017-08 00:00: 00 Yes Apply to affected area(s) 3 (three) times daily. Apply to open area R breast TID [facility] DULoxetine (CYMBALTA) 60 mg capsule 2017-08 19:18: 44 Yes 60mg Take 60 mg by mouth daily. [facility] DULoxetine (CYMBALTA) 60 mg capsule 2017-08 19:18: 44 Yes 60mg Take 60 mg by mouth daily. [facility] DULoxetine (CYMBALTA) 60 mg capsule 2017-08 19:18: 44 Yes 60mg Take 60 mg by mouth daily. [facility] DULoxetine (CYMBALTA) 60 mg capsule 2017-08 14:18: 44 Yes 60mg Take 60 mg by mouth daily. [facility] DULoxetine (CYMBALTA) 60 mg capsule 2017-08 14:18: 44 Yes 60mg Take 60 mg by mouth daily. [facility] DULoxetine (CYMBALTA) 60 mg capsule 2017-08 14:18: 44 Yes 60mg Take 60 mg by mouth daily. [facility] DULoxetine (CYMBALTA) 60 mg capsule 2017-08 14:18: 44 Yes 60mg Take 60 mg by mouth daily. [facility] DULoxetine (CYMBALTA) 60 mg capsule 2017-08 14:18: 44 Yes 60mg Take 60 mg by mouth daily. [facility] simvastatin 20 mg tablet 03-23 00:00: 00 Yes TK 1 T PO QD IN THE [facility] simvastatin 20 mg tablet 03-23 00:00: 00 Yes TK 1 T PO QD IN THE [facility] simvastatin 20 mg tablet 03-23 00:00: 00 Yes TK 1 T PO QD IN THE [facility] simvastatin 20 mg tablet 03-23 00:00: 00 Yes TK 1 T PO QD IN THE [facility] simvastatin 20 mg tablet 03-23 00:00: 00 Yes TK 1 T PO QD IN THE [facility] simvastatin 20 mg tablet 03-23 00:00: 00 Yes TK 1 T PO QD IN THE [facility] SUMAtriptan 50 mg tablet 09-04 00:00: 00 Yes [facility] SUMAtriptan 50 mg tablet 0 09-04 00:00: 00 Yes [facility] SUMAtriptan 50 mg tablet 0 09-04 00:00: 00 Yes [facility] SUMAtriptan 50 mg tablet 0 09-04 00:00: 00 Yes [facility] SUMAtriptan 50 mg tablet 09-04 00:00: 00 Yes [facility] SUMAtriptan 50 mg tablet 09-04 00:00: 00 Yes [facility] FLUoxetine 20 mg tablet 04-10 00:00: 00 Yes [id number] 40mg Take 2 tablets by mouth daily. [facility] FLUoxetine 20 mg tablet 04-10 00:00: 00 Yes [id number] 40mg Take 2 tablets by mouth daily. [facility] FLUoxetine 20 mg tablet 04-10 00:00: 00 Yes [id number] 40mg Take 2 tablets by mouth daily. [facility] FLUoxetine 20 mg tablet 04-10 00:00: 00 Yes [id number] 40mg Take 2 tablets by mouth daily. [facility] FLUoxetine 20 mg tablet 04-10 00:00: 00 Yes [id number] 40mg Take 2 tablets by mouth daily. [facility] FLUoxetine 20 mg tablet 04-10 00:00: 00 Yes [id number] 40mg Take 2 tablets by mouth daily. [facility] doxepin 10 mg capsule 02-05 00:00: 00 Yes [id number] 10mg Take 1 capsule by mouth at bedtime. [facility] doxepin 10 mg capsule 02-05 00:00: 00 Yes [id number] 10mg Take 1 capsule by mouth at bedtime. [facility] doxepin 10 mg capsule 02-05 00:00: 00 Yes [id number] 10mg Take 1 capsule by mouth at bedtime. [facility] doxepin 10 mg capsule 02-05 00:00: 00 Yes [id number] 10mg Take 1 capsule by mouth at bedtime. [facility] doxepin 10 mg capsule 02-05 00:00: 00 Yes [id number] 10mg Take 1 capsule by mouth at bedtime. [facility] doxepin 10 mg capsule 02-05 00:00: 00 Yes [id number] 10mg Take 1 capsule by mouth at bedtime. [facility] ondansetron (ZOFRAN, HYDROCHLORI DE,) 8 mg tablet 09-26 00:00: 00 Yes 8mg Take 1 tablet by mouth every 8 (eight) hours as needed for Nausea and Vomiting (N/V). [facility] ondansetron (ZOFRAN, HYDROCHLORI DE,) 8 mg tablet 09-26 00:00: 00 Yes 8mg Take 1 tablet by mouth every 8 (eight) hours as needed for Nausea and Vomiting (N/V). [facility] ondansetron (ZOFRAN, HYDROCHLORI DE,) 8 mg tablet 09-26 00:00: 00 Yes 8mg Take 1 tablet by mouth every 8 (eight) hours as needed for Nausea and Vomiting (N/V). [facility] ondansetron (ZOFRAN, HYDROCHLORI DE,) 8 mg tablet 09-26 00:00: 00 Yes 8mg Take 1 tablet by mouth every 8 (eight) hours as needed for Nausea and Vomiting (N/V). [facility] ondansetron (ZOFRAN, HYDROCHLORI DE,) 8 mg tablet 09-26 00:00: 00 Yes 8mg Take 1 tablet by mouth every 8 (eight) hours as needed for Nausea and Vomiting (N/V). [facility] ondansetron (ZOFRAN, HYDROCHLORI DE,) 8 mg tablet 09-26 00:00: 00 Yes 8mg Take 1 tablet by mouth every 8 (eight) hours as needed for Nausea and Vomiting (N/V). [facility] ondansetron (ZOFRAN, HYDROCHLORI DE,) 8 mg tablet 09-26 00:00: 00 Yes 8mg Take 1 tablet by mouth every 8 (eight) hours as needed for Nausea and Vomiting (N/V). [facility] fluticasone (FLONASE) 50 mcg/actuati on nasal spray 11-29 00:00: 00 Yes 1{spray } Use 1 [employer] in each nostril 2 (two) times daily. [facility] fluticasone (FLONASE) 50 mcg/actuati on nasal spray 11-29 00:00: 00 Yes 1{spray } Use 1 [employer] in each nostril 2 (two) times daily. [facility] fluticasone (FLONASE) 50 mcg/actuati on nasal spray 11-29 00:00: 00 Yes 1{spray } Use 1 [employer] in each nostril 2 (two) times daily. [facility] fluticasone (FLONASE) 50 mcg/actuati on nasal spray 11-29 00:00: 00 Yes 1{spray } Use 1 [employer] in each nostril 2 (two) times daily. [facility] fluticasone (FLONASE) 50 mcg/actuati on nasal spray 11-29 00:00: 00 Yes 1{spray } Use 1 [employer] in each nostril 2 (two) times daily. [facility] fluticasone (FLONASE) 50 mcg/actuati on nasal spray 11-29 00:00: 00 Yes 1{spray } Use 1 [employer] in each nostril 2 (two) times daily. [facility] fluticasone (FLONASE) 50 mcg/actuati on nasal spray 11-29 00:00: 00 Yes 1{spray } Use 1 [employer] in each nostril 2 (two) times daily. [facility] Zolpidem Tartrate 10 MG Zolpidem Tartrate 10 MG No 1{table t_at_be dtime_a s_neede d} QD Zolpidem Tartrate 10 MG Triamterene -HCTZ 37.5-25 MG Triamterene -HCTZ 37.5-25 MG No 1{table t_in_th e_morni ng} QD Triamteren e-HCTZ 37.5-25 MG Metoprolol Succinate ER 50 MG Metoprolol Succinate ER 50 MG No 1{table t} QD Metoprolol Succinate ER 50 MG FLUoxetine HCl 20 MG FLUoxetine HCl 20 MG No 1{capsu le} QD FLUoxetine HCl 20 MG Thyroid 60 MG Thyroid 60 MG No 1{table t_on_an _empty_ stomach } QD Thyroid 60 MG atorvastati n 20mg atorvastati n 20mg No QD atorvastat in 20mg Gabapentin 300 MG Gabapentin 300 MG No Gabapentin 300 MG SUMAtriptan Succinate 50 MG SUMAtriptan Succinate 50 MG No SUMAtripta n Succinate 50 MG Imitrex 50 MG Imitrex 50 MG No Imitrex 50 MG atorvastati n 20mg atorvastati n 20mg No QD atorvastat in 20mg SUMAtriptan 5 MG/ACT SUMAtriptan 5 MG/ACT No QD SUMAtripta n 5 MG/ACT Gabapentin 300 MG Gabapentin 300 MG No 1{capsu le} QD Gabapentin 300 MG Amitriptyli ne HCl 10 MG Amitriptyli ne HCl 10 MG No 1{table t_at_be dtime} QD Amitriptyl ine HCl 10 MG traMADol HCl 50 MG traMADol HCl 50 MG No 1{table t_as_ne eded} QD traMADol HCl 50 MG Zolpidem Tartrate 10 MG Zolpidem Tartrate 10 MG No 1{table t_at_be dtime_a s_neede d} QD Zolpidem Tartrate 10 MG Triamterene -HCTZ 37.5-25 MG Triamterene -HCTZ 37.5-25 MG No 1{table t_in_th e_morni ng} QD Triamteren e-HCTZ 37.5-25 MG Metoprolol Succinate ER 50 MG Metoprolol Succinate ER 50 MG No 1{table t} QD Metoprolol Succinate ER 50 MG FLUoxetine HCl 20 MG FLUoxetine HCl 20 MG No 1{capsu le} QD FLUoxetine HCl 20 MG Ibuprofen Ibuprofen No Ibuprofen Thyroid 60 MG Thyroid 60 MG No 1{table t_on_an _empty_ stomach } QD Thyroid 60 MG atorvastati n 20mg atorvastati n 20mg No QD atorvastat in 20mg Gabapentin 300 MG Gabapentin 300 MG No Gabapentin 300 MG SUMAtriptan Succinate 50 MG SUMAtriptan Succinate 50 MG No SUMAtripta n Succinate 50 MG Imitrex 50 MG Imitrex 50 MG No Imitrex 50 MG atorvastati n 20mg atorvastati n 20mg No QD atorvastat in 20mg Imitrex 50 MG Imitrex 50 MG No Imitrex 50 MG FLUoxetine HCl 20 MG FLUoxetine HCl 20 MG No 1{capsu le} QD FLUoxetine HCl 20 MG Gabapentin 300 MG Gabapentin 300 MG No 1{capsu le} QD Gabapentin 300 MG Amitriptyli ne HCl 10 MG Amitriptyli ne HCl 10 MG No 1{table t_at_be dtime} QD Amitriptyl ine HCl 10 MG traMADol HCl 50 MG traMADol HCl 50 MG No 1{table t_as_ne eded} QD traMADol HCl 50 MG Zolpidem Tartrate 10 MG Zolpidem Tartrate 10 MG No 1{table t_at_be dtime_a s_neede d} QD Zolpidem Tartrate 10 MG Triamterene -HCTZ 37.5-25 MG Triamterene -HCTZ 37.5-25 MG No 1{table t_in_th e_morni ng} QD Triamteren e-HCTZ 37.5-25 MG Metoprolol Succinate ER 50 MG Metoprolol Succinate ER 50 MG No 1{table t} QD Metoprolol Succinate ER 50 MG FLUoxetine HCl 20 MG FLUoxetine HCl 20 MG No 1{capsu le} QD FLUoxetine HCl 20 MG Thyroid 60 MG Thyroid 60 MG No 1{table t_on_an _empty_ stomach } QD Thyroid 60 MG atorvastati n 20mg atorvastati n 20mg No QD atorvastat in 20mg atorvastati n 20mg atorvastati n 20mg No atorvastat in 20mg Gabapentin 300 MG Gabapentin 300 MG No Gabapentin 300 MG SUMAtriptan Succinate 50 MG SUMAtriptan Succinate 50 MG No SUMAtripta n Succinate 50 MG Imitrex 50 MG Imitrex 50 MG No Imitrex 50 MG atorvastati n 20mg atorvastati n 20mg No QD atorvastat in 20mg Triamterene -HCTZ 37.5-25 MG Triamterene -HCTZ 37.5-25 MG No 1{table t_in_th e_morni ng} QD Triamteren e-HCTZ 37.5-25 MG Gabapentin 300 MG Gabapentin 300 MG No 1{capsu le} QD Gabapentin 300 MG Amitriptyli ne HCl 10 MG Amitriptyli ne HCl 10 MG No 1{table t_at_be dtime} QD Amitriptyl ine HCl 10 MG traMADol HCl 50 MG traMADol HCl 50 MG No 1{table t_as_ne eded} QD traMADol HCl 50 MG Zolpidem Tartrate 10 MG Zolpidem Tartrate 10 MG No 1{table t_at_be dtime_a s_neede d} QD Zolpidem Tartrate 10 MG Triamterene -HCTZ 37.5-25 MG Triamterene -HCTZ 37.5-25 MG No 1{table t_in_th e_morni ng} QD Triamteren e-HCTZ 37.5-25 MG Metoprolol Succinate ER 50 MG Metoprolol Succinate ER 50 MG No 1{table t} QD Metoprolol Succinate ER 50 MG FLUoxetine HCl 20 MG FLUoxetine HCl 20 MG No 1{capsu le} QD FLUoxetine HCl 20 MG Thyroid 60 MG Thyroid 60 MG No 1{table t_on_an _empty_ stomach } QD Thyroid 60 MG atorvastati n 20mg atorvastati n 20mg No QD atorvastat in 20mg Metoprolol Succinate ER 50 MG Metoprolol Succinate ER 50 MG No 1{table t} QD Metoprolol Succinate ER 50 MG Gabapentin 300 MG Gabapentin 300 MG No Gabapentin 300 MG SUMAtriptan Succinate 50 MG SUMAtriptan Succinate 50 MG No SUMAtripta n Succinate 50 MG Imitrex 50 MG Imitrex 50 MG No Imitrex 50 MG atorvastati n 20mg atorvastati n 20mg No QD atorvastat in 20mg Amitriptyli ne HCl 10 MG Amitriptyli ne HCl 10 MG No 1{table t_at_be dtime} QD Amitriptyl ine HCl 10 MG Gabapentin 300 MG Gabapentin 300 MG No 1{capsu le} QD Gabapentin 300 MG Amitriptyli ne HCl 10 MG Amitriptyli ne HCl 10 MG No 1{table t_at_be dtime} QD Amitriptyl ine HCl 10 MG traMADol HCl 50 MG traMADol HCl 50 MG No 1{table t_as_ne eded} QD traMADol HCl 50 MG Zolpidem Tartrate 10 MG Zolpidem Tartrate 10 MG No 1{table t_at_be dtime_a s_neede d} QD Zolpidem Tartrate 10 MG Triamterene -HCTZ 37.5-25 MG Triamterene -HCTZ 37.5-25 MG No 1{table t_in_th e_morni ng} QD Triamteren e-HCTZ 37.5-25 MG Metoprolol Succinate ER 50 MG Metoprolol Succinate ER 50 MG No 1{table t} QD Metoprolol Succinate ER 50 MG FLUoxetine HCl 20 MG FLUoxetine HCl 20 MG No 1{capsu le} QD FLUoxetine HCl 20 MG Thyroid 60 MG Thyroid 60 MG No 1{table t_on_an _empty_ stomach } QD Thyroid 60 MG traMADol HCl 50 MG traMADol HCl 50 MG No 1{table t_as_ne eded} QD traMADol HCl 50 MG atorvastati n 20mg atorvastati n 20mg No QD atorvastat in 20mg Gabapentin 300 MG Gabapentin 300 MG No Gabapentin 300 MG SUMAtriptan Succinate 50 MG SUMAtriptan Succinate 50 MG No SUMAtripta n Succinate 50 MG Imitrex 50 MG Imitrex 50 MG No Imitrex 50 MG atorvastati n 20mg atorvastati n 20mg No QD atorvastat in 20mg Diclofenac Diclofenac No Diclofenac Gabapentin 300 MG Gabapentin 300 MG No 1{capsu le} QD Gabapentin 300 MG Amitriptyli ne HCl 10 MG Amitriptyli ne HCl 10 MG No 1{table t_at_be dtime} QD Amitriptyl ine HCl 10 MG traMADol HCl 50 MG traMADol HCl 50 MG No 1{table t_as_ne eded} QD traMADol HCl 50 MG Zolpidem Tartrate 10 MG Zolpidem Tartrate 10 MG No 1{table t_at_be dtime_a s_neede d} QD Zolpidem Tartrate 10 MG Triamterene -HCTZ 37.5-25 MG Triamterene -HCTZ 37.5-25 MG No 1{table t_in_th e_morni ng} QD Triamteren e-HCTZ 37.5-25 MG Metoprolol Succinate ER 50 MG Metoprolol Succinate ER 50 MG No 1{table t} QD Metoprolol Succinate ER 50 MG FLUoxetine HCl 20 MG FLUoxetine HCl 20 MG No 1{capsu le} QD FLUoxetine HCl 20 MG Thyroid 60 MG Thyroid 60 MG No 1{table t_on_an _empty_ stomach } QD Thyroid 60 MG atorvastati n 20mg atorvastati n 20mg No QD atorvastat in 20mg Gabapentin 300 MG Gabapentin 300 MG No Gabapentin 300 MG SUMAtriptan Succinate 50 MG SUMAtriptan Succinate 50 MG No SUMAtripta n Succinate 50 MG Gabapentin Gabapentin No Gabapentin Imitrex 50 MG Imitrex 50 MG No Imitrex 50 MG atorvastati n 20mg atorvastati n 20mg No QD atorvastat in 20mg Gabapentin 300 MG Gabapentin 300 MG No 1{capsu le} QD Gabapentin 300 MG Amitriptyli ne HCl 10 MG Amitriptyli ne HCl 10 MG No 1{table t_at_be dtime} QD Amitriptyl ine HCl 10 MG Gabapentin 300 MG Gabapentin 300 MG No 1{capsu le} QD Gabapentin 300 MG traMADol HCl 50 MG traMADol HCl 50 MG No 1{table t_as_ne eded} QD traMADol HCl 50 MG Zolpidem Tartrate 10 MG Zolpidem Tartrate 10 MG No 1{table t_at_be dtime_a s_neede d} QD Zolpidem Tartrate 10 MG Triamterene -HCTZ 37.5-25 MG Triamterene -HCTZ 37.5-25 MG No 1{table t_in_th e_morni ng} QD Triamteren e-HCTZ 37.5-25 MG Metoprolol Succinate ER 50 MG Metoprolol Succinate ER 50 MG No 1{table t} QD Metoprolol Succinate ER 50 MG FLUoxetine HCl 20 MG FLUoxetine HCl 20 MG No 1{capsu le} QD FLUoxetine HCl 20 MG Thyroid 60 MG Thyroid 60 MG No 1{table t_on_an _empty_ stomach } QD Thyroid 60 MG atorvastati n 20mg atorvastati n 20mg No QD atorvastat in 20mg Gabapentin 300 MG Gabapentin 300 MG No Gabapentin 300 MG SUMAtriptan Succinate 50 MG SUMAtriptan Succinate 50 MG No SUMAtripta n Succinate 50 MG Thyroid 60 MG Thyroid 60 MG No 1{table t_on_an _empty_ stomach } QD Thyroid 60 MG Imitrex 50 MG Imitrex 50 MG No Imitrex 50 MG atorvastati n 20mg atorvastati n 20mg No QD atorvastat in 20mg Metoprolol Succinate ER 50 MG Metoprolol Succinate ER 50 MG No 1{table t} QD Metoprolol Succinate ER 50 MG Gabapentin 300 MG Gabapentin 300 MG No 1{capsu le} QD Gabapentin 300 MG Amitriptyli ne HCl 10 MG Amitriptyli ne HCl 10 MG No 1{table t_at_be dtime} QD Amitriptyl ine HCl 10 MG traMADol HCl 50 MG traMADol HCl 50 MG No 1{table t_as_ne eded} QD traMADol HCl 50 MG Zolpidem Tartrate 10 MG Zolpidem Tartrate 10 MG No 1{table t_at_be dtime_a s_neede d} QD Zolpidem Tartrate 10 MG Triamterene -HCTZ 37.5-25 MG Triamterene -HCTZ 37.5-25 MG No 1{table t_in_th e_morni ng} QD Triamteren e-HCTZ 37.5-25 MG Metoprolol Succinate ER 50 MG Metoprolol Succinate ER 50 MG No 1{table t} QD Metoprolol Succinate ER 50 MG FLUoxetine HCl 20 MG FLUoxetine HCl 20 MG No 1{capsu le} QD FLUoxetine HCl 20 MG Thyroid 60 MG Thyroid 60 MG No 1{table t_on_an _empty_ stomach } QD Thyroid 60 MG atorvastati n 20mg atorvastati n 20mg No QD atorvastat in 20mg Gabapentin 300 MG Gabapentin 300 MG No Gabapentin 300 MG SUMAtriptan Succinate 50 MG SUMAtriptan Succinate 50 MG No SUMAtripta n Succinate 50 MG Imitrex 50 MG Imitrex 50 MG No Imitrex 50 MG atorvastati n 20mg atorvastati n 20mg No QD atorvastat in 20mg No known medications No Un [facility] No known medications No Un [facility] No known medications No Un [facility] SUMAtriptan 5 MG/ACT SUMAtriptan 5 MG/ACT No QD SUMAtripta n 5 MG/ACT Ibuprofen Ibuprofen No Ibuprofen Imitrex 50 MG Imitrex 50 MG No Imitrex 50 MG FLUoxetine HCl 20 MG FLUoxetine HCl 20 MG No 1{capsu le} QD FLUoxetine HCl 20 MG atorvastati n 20mg atorvastati n 20mg No atorvastat in 20mg Triamterene -HCTZ 37.5-25 MG Triamterene -HCTZ 37.5-25 MG No 1{table t_in_th e_morni ng} QD Triamteren e-HCTZ 37.5-25 MG Metoprolol Succinate ER 50 MG Metoprolol Succinate ER 50 MG No 1{table t} QD Metoprolol Succinate ER 50 MG Amitriptyli ne HCl 10 MG Amitriptyli ne HCl 10 MG No 1{table t_at_be dtime} QD Amitriptyl ine HCl 10 MG traMADol HCl 50 MG traMADol HCl 50 MG No 1{table t_as_ne eded} QD traMADol HCl 50 MG Diclofenac Diclofenac No Diclofenac Gabapentin Gabapentin No Gabapentin Gabapentin 300 MG Gabapentin 300 MG No 1{capsu le} QD Gabapentin 300 MG Thyroid 60 MG Thyroid 60 MG No 1{table t_on_an _empty_ stomach } QD Thyroid 60 MG Metoprolol Succinate ER 50 MG Metoprolol Succinate ER 50 MG No 1{table t} QD Metoprolol Succinate ER 50 MG SUMAtriptan 5 MG/ACT SUMAtriptan 5 MG/ACT No QD SUMAtripta n 5 MG/ACT Ibuprofen Ibuprofen No Ibuprofen Imitrex 50 MG Imitrex 50 MG No Imitrex 50 MG FLUoxetine HCl 20 MG FLUoxetine HCl 20 MG No 1{capsu le} QD FLUoxetine HCl 20 MG atorvastati n 20mg atorvastati n 20mg No atorvastat in 20mg Triamterene -HCTZ 37.5-25 MG Triamterene -HCTZ 37.5-25 MG No 1{table t_in_th e_morni ng} QD Triamteren e-HCTZ 37.5-25 MG Metoprolol Succinate ER 50 MG Metoprolol Succinate ER 50 MG No 1{table t} QD Metoprolol Succinate ER 50 MG Amitriptyli ne HCl 10 MG Amitriptyli ne HCl 10 MG No 1{table t_at_be dtime} QD Amitriptyl ine HCl 10 MG traMADol HCl 50 MG traMADol HCl 50 MG No 1{table t_as_ne eded} QD traMADol HCl 50 MG Diclofenac Diclofenac No Diclofenac Gabapentin Gabapentin No Gabapentin Gabapentin 300 MG Gabapentin 300 MG No 1{capsu le} QD Gabapentin 300 MG Thyroid 60 MG Thyroid 60 MG No 1{table t_on_an _empty_ stomach } QD Thyroid 60 MG Metoprolol Succinate ER 50 MG Metoprolol Succinate ER 50 MG No 1{table t} QD Metoprolol Succinate ER 50 MG Metoprolol Succinate ER 50 MG Metoprolol Succinate ER 50 MG No 1{table t} QD Metoprolol Succinate ER 50 MG Imitrex 50 MG Imitrex 50 MG No Imitrex 50 MG traMADol HCl 50 MG traMADol HCl 50 MG No 1{table t_as_ne eded} QD traMADol HCl 50 MG Amitriptyli ne HCl 10 MG Amitriptyli ne HCl 10 MG No 1{table t_at_be dtime} QD Amitriptyl ine HCl 10 MG atorvastati n 20mg atorvastati n 20mg No QD atorvastat in 20mg Ibuprofen Ibuprofen No Ibuprofen Diclofenac Diclofenac No Diclofenac Thyroid 60 MG Thyroid 60 MG No 1{table t_on_an _empty_ stomach } QD Thyroid 60 MG Metoprolol Succinate ER 50 MG Metoprolol Succinate ER 50 MG No 1{table t} QD Metoprolol Succinate ER 50 MG Triamterene -HCTZ 37.5-25 MG Triamterene -HCTZ 37.5-25 MG No 1{table t_in_th e_morni ng} QD Triamteren e-HCTZ 37.5-25 MG Gabapentin Gabapentin No Gabapentin FLUoxetine HCl 20 MG FLUoxetine HCl 20 MG No 1{capsu le} QD FLUoxetine HCl 20 MG Gabapentin 300 MG Gabapentin 300 MG No 1{capsu le} QD Gabapentin 300 MG SUMAtriptan 5 MG/ACT SUMAtriptan 5 MG/ACT No QD SUMAtripta n 5 MG/ACT Gabapentin Gabapentin No Gabapentin Gabapentin 300 MG Gabapentin 300 MG No 1{capsu le} QD Gabapentin 300 MG Imitrex 50 MG Imitrex 50 MG No Imitrex 50 MG traMADol HCl 50 MG traMADol HCl 50 MG No 1{table t_as_ne eded} QD traMADol HCl 50 MG Diclofenac Diclofenac No Diclofenac Triamterene -HCTZ 37.5-25 MG Triamterene -HCTZ 37.5-25 MG No 1{table t_in_th e_morni ng} QD Triamteren e-HCTZ 37.5-25 MG Metoprolol Succinate ER 50 MG Metoprolol Succinate ER 50 MG No 1{table t} QD Metoprolol Succinate ER 50 MG Ibuprofen Ibuprofen No Ibuprofen FLUoxetine HCl 20 MG FLUoxetine HCl 20 MG No 1{capsu le} QD FLUoxetine HCl 20 MG SUMAtriptan 5 MG/ACT SUMAtriptan 5 MG/ACT No QD SUMAtripta n 5 MG/ACT Amitriptyli ne HCl 10 MG Amitriptyli ne HCl 10 MG No 1{table t_at_be dtime} QD Amitriptyl ine HCl 10 MG Thyroid 60 MG Thyroid 60 MG No 1{table t_on_an _empty_ stomach } QD Thyroid 60 MG Metoprolol Succinate ER 50 MG Metoprolol Succinate ER 50 MG No 1{table t} QD Metoprolol Succinate ER 50 MG atorvastati n 20mg atorvastati n 20mg No QD atorvastat in 20mg Gabapentin Gabapentin No Gabapentin Gabapentin 300 MG Gabapentin 300 MG No 1{capsu le} QD Gabapentin 300 MG Imitrex 50 MG Imitrex 50 MG No Imitrex 50 MG traMADol HCl 50 MG traMADol HCl 50 MG No 1{table t_as_ne eded} QD traMADol HCl 50 MG Diclofenac Diclofenac No Diclofenac Triamterene -HCTZ 37.5-25 MG Triamterene -HCTZ 37.5-25 MG No 1{table t_in_ e_morni ng} QD Triamteren e-HCTZ 37.5-25 MG Metoprolol Succinate ER 50 MG Metoprolol Succinate ER 50 MG No 1{table t} QD Metoprolol Succinate ER 50 MG Ibuprofen Ibuprofen No Ibuprofen FLUoxetine HCl 20 MG FLUoxetine HCl 20 MG No 1{capsu le} QD FLUoxetine HCl 20 MG SUMAtriptan 5 MG/ACT SUMAtriptan 5 MG/ACT No QD SUMAtripta n 5 MG/ACT Amitriptyli ne HCl 10 MG Amitriptyli ne HCl 10 MG No 1{table t_at_be dtime} QD Amitriptyl ine HCl 10 MG Thyroid 60 MG Thyroid 60 MG No 1{table t_on_an _empty_ stomach } QD Thyroid 60 MG Metoprolol Succinate ER 50 MG Metoprolol Succinate ER 50 MG No 1{table t} QD Metoprolol Succinate ER 50 MG atorvastati n 20mg atorvastati n 20mg No QD atorvastat in 20mg Imitrex 50 MG Imitrex 50 MG No Imitrex 50 MG SUMAtriptan 5 MG/ACT SUMAtriptan 5 MG/ACT No QD SUMAtripta n 5 MG/ACT Triamterene -HCTZ 37.5-25 MG Triamterene -HCTZ 37.5-25 MG No 1{table t_in_th e_morni ng} QD Triamteren e-HCTZ 37.5-25 MG atorvastati n 20mg atorvastati n 20mg No QD atorvastat in 20mg Amitriptyli ne HCl 10 MG Amitriptyli ne HCl 10 MG No 1{table t_at_be dtime} QD Amitriptyl ine HCl 10 MG FLUoxetine HCl 20 MG FLUoxetine HCl 20 MG No 1{capsu le} QD FLUoxetine HCl 20 MG traMADol HCl 50 MG traMADol HCl 50 MG No 1{table t_as_ne eded} QD traMADol HCl 50 MG Ibuprofen Ibuprofen No Ibuprofen Gabapentin Gabapentin No Gabapentin Diclofenac Diclofenac No Diclofenac Metoprolol Succinate ER 50 MG Metoprolol Succinate ER 50 MG No 1{table t} QD Metoprolol Succinate ER 50 MG Metoprolol Succinate ER 50 MG Metoprolol Succinate ER 50 MG No 1{table t} QD Metoprolol Succinate ER 50 MG Gabapentin 300 MG Gabapentin 300 MG No 1{capsu le} QD Gabapentin 300 MG Thyroid 60 MG Thyroid 60 MG No 1{table t_on_an _empty_ stomach } QD Thyroid 60 MG Imitrex 50 MG Imitrex 50 MG No Imitrex 50 MG Triamterene -HCTZ 37.5-25 MG Triamterene -HCTZ 37.5-25 MG No 1{table t_in_th e_morni ng} QD Triamteren e-HCTZ 37.5-25 MG atorvastati n 20mg atorvastati n 20mg No QD atorvastat in 20mg Amitriptyli ne HCl 10 MG Amitriptyli ne HCl 10 MG No 1{table t_at_be dtime} QD Amitriptyl ine HCl 10 MG FLUoxetine HCl 20 MG FLUoxetine HCl 20 MG No 1{capsu le} QD FLUoxetine HCl 20 MG traMADol HCl 50 MG traMADol HCl 50 MG No 1{table t_as_ne eded} QD traMADol HCl 50 MG Ibuprofen Ibuprofen No Ibuprofen Gabapentin Gabapentin No Gabapentin Thyroid 60 MG Thyroid 60 MG No 1{table t_on_an _empty_ stomach } QD Thyroid 60 MG Diclofenac Diclofenac No Diclofenac Metoprolol Succinate ER 50 MG Metoprolol Succinate ER 50 MG No 1{table t} QD Metoprolol Succinate ER 50 MG Metoprolol Succinate ER 50 MG Metoprolol Succinate ER 50 MG No 1{table t} QD Metoprolol Succinate ER 50 MG Gabapentin 300 MG Gabapentin 300 MG No 1{capsu le} QD Gabapentin 300 MG SUMAtriptan 5 MG/ACT SUMAtriptan 5 MG/ACT No QD SUMAtripta n 5 MG/ACT SUMAtriptan 5 MG/ACT SUMAtriptan 5 MG/ACT No QD SUMAtripta n 5 MG/ACT Ibuprofen Ibuprofen No Ibuprofen Amitriptyli ne HCl 10 MG Amitriptyli ne HCl 10 MG No 1{table t_at_be dtime} QD Amitriptyl ine HCl 10 MG Triamterene -HCTZ 37.5-25 MG Triamterene -HCTZ 37.5-25 MG No 1{table t_in_th e_morni ng} QD Triamteren e-HCTZ 37.5-25 MG Metoprolol Succinate ER 50 MG Metoprolol Succinate ER 50 MG No 1{table t} QD Metoprolol Succinate ER 50 MG Thyroid 60 MG Thyroid 60 MG No 1{table t_on_an _empty_ stomach } QD Thyroid 60 MG Imitrex 50 MG Imitrex 50 MG No Imitrex 50 MG Imitrex 50 MG Imitrex 50 MG No Imitrex 50 MG SUMAtriptan 5 MG/ACT SUMAtriptan 5 MG/ACT No QD SUMAtripta n 5 MG/ACT Gabapentin 300 MG Gabapentin 300 MG No 1{capsu le} QD Gabapentin 300 MG Diclofenac Diclofenac No Diclofenac Metoprolol Succinate ER 50 MG Metoprolol Succinate ER 50 MG No 1{table t} QD Metoprolol Succinate ER 50 MG atorvastati n 20mg atorvastati n 20mg No QD atorvastat in 20mg Ibuprofen Ibuprofen No Ibuprofen Gabapentin Gabapentin No Gabapentin traMADol HCl 50 MG traMADol HCl 50 MG No 1{table t_as_ne eded} QD traMADol HCl 50 MG FLUoxetine HCl 20 MG FLUoxetine HCl 20 MG No 1{capsu le} QD FLUoxetine HCl 20 MG FLUoxetine HCl 20 MG FLUoxetine HCl 20 MG No 1{capsu le} QD FLUoxetine HCl 20 MG atorvastati n 20mg atorvastati n 20mg No atorvastat in 20mg Triamterene -HCTZ 37.5-25 MG Triamterene -HCTZ 37.5-25 MG No 1{table t_in_th e_morni ng} QD Triamteren e-HCTZ 37.5-25 MG Gabapentin Gabapentin No Gabapentin Diclofenac Diclofenac No Diclofenac Triamterene -HCTZ 37.5-25 MG Triamterene -HCTZ 37.5-25 MG No 1{table t_in_th e_morni ng} QD Triamteren e-HCTZ 37.5-25 MG FLUoxetine HCl 20 MG FLUoxetine HCl 20 MG No 1{capsu le} QD FLUoxetine HCl 20 MG Metoprolol Succinate ER 50 MG Metoprolol Succinate ER 50 MG No 1{table t} QD Metoprolol Succinate ER 50 MG Metoprolol Succinate ER 50 MG Metoprolol Succinate ER 50 MG No 1{table t} QD Metoprolol Succinate ER 50 MG Metoprolol Succinate ER 50 MG Metoprolol Succinate ER 50 MG No 1{table t} QD Metoprolol Succinate ER 50 MG SUMAtriptan 5 MG/ACT SUMAtriptan 5 MG/ACT No QD SUMAtripta n 5 MG/ACT Thyroid 60 MG Thyroid 60 MG No 1{table t_on_an _empty_ stomach } QD Thyroid 60 MG Gabapentin 300 MG Gabapentin 300 MG No 1{capsu le} QD Gabapentin 300 MG Ibuprofen Ibuprofen No Ibuprofen Imitrex 50 MG Imitrex 50 MG No Imitrex 50 MG atorvastati n 20mg atorvastati n 20mg No QD atorvastat in 20mg traMADol HCl 50 MG traMADol HCl 50 MG No 1{table t_as_ne eded} QD traMADol HCl 50 MG Amitriptyli ne HCl 10 MG Amitriptyli ne HCl 10 MG No 1{table t_at_be dtime} QD Amitriptyl ine HCl 10 MG Amitriptyli ne HCl 10 MG Amitriptyli ne HCl 10 MG No 1{table t_at_be dtime} QD Amitriptyl ine HCl 10 MG Gabapentin Gabapentin No Gabapentin traMADol HCl 50 MG traMADol HCl 50 MG No 1{table t_as_ne eded} QD traMADol HCl 50 MG Diclofenac Diclofenac No Diclofenac Triamterene -HCTZ 37.5-25 MG Triamterene -HCTZ 37.5-25 MG No 1{table t_in_ e_morni ng} QD Triamteren e-HCTZ 37.5-25 MG FLUoxetine HCl 20 MG FLUoxetine HCl 20 MG No 1{capsu le} QD FLUoxetine HCl 20 MG Metoprolol Succinate ER 50 MG Metoprolol Succinate ER 50 MG No 1{table t} QD Metoprolol Succinate ER 50 MG Metoprolol Succinate ER 50 MG Metoprolol Succinate ER 50 MG No 1{table t} QD Metoprolol Succinate ER 50 MG SUMAtriptan 5 MG/ACT SUMAtriptan 5 MG/ACT No QD SUMAtripta n 5 MG/ACT Thyroid 60 MG Thyroid 60 MG No 1{table t_on_an _empty_ stomach } QD Thyroid 60 MG Gabapentin 300 MG Gabapentin 300 MG No 1{capsu le} QD Gabapentin 300 MG Diclofenac Diclofenac No Diclofenac Ibuprofen Ibuprofen No Ibuprofen Imitrex 50 MG Imitrex 50 MG No Imitrex 50 MG atorvastati n 20mg atorvastati n 20mg No QD atorvastat in 20mg traMADol HCl 50 MG traMADol HCl 50 MG No 1{table t_as_ne eded} QD traMADol HCl 50 MG Amitriptyli ne HCl 10 MG Amitriptyli ne HCl 10 MG No 1{table t_at_be dtime} QD Amitriptyl ine HCl 10 MG Gabapentin Gabapentin No Gabapentin Diclofenac Diclofenac No Diclofenac Triamterene -HCTZ 37.5-25 MG Triamterene -HCTZ 37.5-25 MG No 1{table t_in_ e_morni ng} QD Triamteren e-HCTZ 37.5-25 MG FLUoxetine HCl 20 MG FLUoxetine HCl 20 MG No 1{capsu le} QD FLUoxetine HCl 20 MG Metoprolol Succinate ER 50 MG Metoprolol Succinate ER 50 MG No 1{table t} QD Metoprolol Succinate ER 50 MG Metoprolol Succinate ER 50 MG Metoprolol Succinate ER 50 MG No 1{table t} QD Metoprolol Succinate ER 50 MG SUMAtriptan 5 MG/ACT SUMAtriptan 5 MG/ACT No QD SUMAtripta n 5 MG/ACT Thyroid 60 MG Thyroid 60 MG No 1{table t_on_an _empty_ stomach } QD Thyroid 60 MG Gabapentin Gabapentin No Gabapentin Gabapentin 300 MG Gabapentin 300 MG No 1{capsu le} QD Gabapentin 300 MG Ibuprofen Ibuprofen No Ibuprofen Imitrex 50 MG Imitrex 50 MG No Imitrex 50 MG atorvastati n 20mg atorvastati n 20mg No QD atorvastat in 20mg traMADol HCl 50 MG traMADol HCl 50 MG No 1{table t_as_ne eded} QD traMADol HCl 50 MG Amitriptyli ne HCl 10 MG Amitriptyli ne HCl 10 MG No 1{table t_at_be dtime} QD Amitriptyl ine HCl 10 MG Gabapentin 300 MG Gabapentin 300 MG No 1{capsu le} QD Gabapentin 300 MG Gabapentin Gabapentin No Gabapentin Triamterene -HCTZ 37.5-25 MG Triamterene -HCTZ 37.5-25 MG No 1{table t_in_th e_morni ng} QD Triamteren e-HCTZ 37.5-25 MG FLUoxetine HCl 20 MG FLUoxetine HCl 20 MG No 1{capsu le} QD FLUoxetine HCl 20 MG Metoprolol Succinate ER 50 MG Metoprolol Succinate ER 50 MG No 1{table t} QD Metoprolol Succinate ER 50 MG Metoprolol Succinate ER 50 MG Metoprolol Succinate ER 50 MG No 1{table t} QD Metoprolol Succinate ER 50 MG SUMAtriptan 5 MG/ACT SUMAtriptan 5 MG/ACT No QD SUMAtripta n 5 MG/ACT Thyroid 60 MG Thyroid 60 MG No 1{table t_on_an _empty_ stomach } QD Thyroid 60 MG Gabapentin 300 MG Gabapentin 300 MG No 1{capsu le} QD Gabapentin 300 MG Ibuprofen Ibuprofen No Ibuprofen Thyroid 60 MG Thyroid 60 MG No 1{table t_on_an _empty_ stomach } QD Thyroid 60 MG Imitrex 50 MG Imitrex 50 MG No Imitrex 50 MG atorvastati n 20mg atorvastati n 20mg No QD atorvastat in 20mg traMADol HCl 50 MG traMADol HCl 50 MG No 1{table t_as_ne eded} QD traMADol HCl 50 MG Amitriptyli ne HCl 10 MG Amitriptyli ne HCl 10 MG No 1{table t_at_be dtime} QD Amitriptyl ine HCl 10 MG Diclofenac Diclofenac No Diclofenac Metoprolol Succinate ER 50 MG Metoprolol Succinate ER 50 MG No 1{table t} QD Metoprolol Succinate ER 50 MG Metoprolol Succinate ER 50 MG Metoprolol Succinate ER 50 MG No 1{table t} QD Metoprolol Succinate ER 50 MG Ibuprofen Ibuprofen No Ibuprofen atorvastati n 20mg atorvastati n 20mg No QD atorvastat in 20mg Triamterene -HCTZ 37.5-25 MG Triamterene -HCTZ 37.5-25 MG No 1{table t_in_th e_morni ng} QD Triamteren e-HCTZ 37.5-25 MG FLUoxetine HCl 20 MG FLUoxetine HCl 20 MG No 1{capsu le} QD FLUoxetine HCl 20 MG SUMAtriptan Succinate 50 MG SUMAtriptan Succinate 50 MG No SUMAtripta n Succinate 50 MG Gabapentin 300 MG Gabapentin 300 MG No 1{capsu le} QD Gabapentin 300 MG Gabapentin Gabapentin No Gabapentin Metoprolol Succinate ER 50 MG Metoprolol Succinate ER 50 MG No 1{table t} QD Metoprolol Succinate ER 50 MG Diclofenac Diclofenac No Diclofenac SUMAtriptan 5 MG/ACT SUMAtriptan 5 MG/ACT No QD SUMAtripta n 5 MG/ACT Amitriptyli ne HCl 10 MG Amitriptyli ne HCl 10 MG No 1{table t_at_be dtime} QD Amitriptyl ine HCl 10 MG traMADol HCl 50 MG traMADol HCl 50 MG No 1{table t_as_ne eded} QD traMADol HCl 50 MG Thyroid 60 MG Thyroid 60 MG No 1{table t_on_an _empty_ stomach } QD Thyroid 60 MG Metoprolol Succinate ER 50 MG Metoprolol Succinate ER 50 MG No 1{table t} QD Metoprolol Succinate ER 50 MG Ibuprofen Ibuprofen No Ibuprofen atorvastati n 20mg atorvastati n 20mg No QD atorvastat in 20mg Triamterene -HCTZ 37.5-25 MG Triamterene -HCTZ 37.5-25 MG No 1{table t_in_th e_morni ng} QD Triamteren e-HCTZ 37.5-25 MG FLUoxetine HCl 20 MG FLUoxetine HCl 20 MG No 1{capsu le} QD FLUoxetine HCl 20 MG SUMAtriptan Succinate 50 MG SUMAtriptan Succinate 50 MG No SUMAtripta n Succinate 50 MG Gabapentin 300 MG Gabapentin 300 MG No 1{capsu le} QD Gabapentin 300 MG Gabapentin Gabapentin No Gabapentin Metoprolol Succinate ER 50 MG Metoprolol Succinate ER 50 MG No 1{table t} QD Metoprolol Succinate ER 50 MG Diclofenac Diclofenac No Diclofenac SUMAtriptan 5 MG/ACT SUMAtriptan 5 MG/ACT No QD SUMAtripta n 5 MG/ACT Amitriptyli ne HCl 10 MG Amitriptyli ne HCl 10 MG No 1{table t_at_be dtime} QD Amitriptyl ine HCl 10 MG traMADol HCl 50 MG traMADol HCl 50 MG No 1{table t_as_ne eded} QD traMADol HCl 50 MG Thyroid 60 MG Thyroid 60 MG No 1{table t_on_an _empty_ stomach } QD Thyroid 60 MG Gabapentin 300 MG Gabapentin 300 MG No 1{capsu le} QD Gabapentin 300 MG Amitriptyli ne HCl 10 MG Amitriptyli ne HCl 10 MG No 1{table t_at_be dtime} QD Amitriptyl ine HCl 10 MG traMADol HCl 50 MG traMADol HCl 50 MG No 1{table t_as_ne eded} QD traMADol HCl 50 MG Zolpidem Tartrate 10 MG Zolpidem Tartrate 10 MG No 1{table t_at_be dtime_a s_neede d} QD Zolpidem Tartrate 10 MG Triamterene -HCTZ 37.5-25 MG Triamterene -HCTZ 37.5-25 MG No 1{table t_in_th e_morni ng} QD Triamteren e-HCTZ 37.5-25 MG Metoprolol Succinate ER 50 MG Metoprolol Succinate ER 50 MG No 1{table t} QD Metoprolol Succinate ER 50 MG FLUoxetine HCl 20 MG FLUoxetine HCl 20 MG No 1{capsu le} QD FLUoxetine HCl 20 MG Thyroid 60 MG Thyroid 60 MG No 1{table t_on_an _empty_ stomach } QD Thyroid 60 MG atorvastati n 20mg atorvastati n 20mg No QD atorvastat in 20mg Gabapentin 300 MG Gabapentin 300 MG No Gabapentin 300 MG SUMAtriptan Succinate 50 MG SUMAtriptan Succinate 50 MG No SUMAtripta n Succinate 50 MG Imitrex 50 MG Imitrex 50 MG No Imitrex 50 MG atorvastati n 20mg atorvastati n 20mg No QD atorvastat in 20mg Gabapentin 300 MG Gabapentin 300 MG No 1{capsu le} QD Gabapentin 300 MG Amitriptyli ne HCl 10 MG Amitriptyli ne HCl 10 MG No 1{table t_at_be dtime} QD Amitriptyl ine HCl 10 MG traMADol HCl 50 MG traMADol HCl 50 MG No 1{table t_as_ne eded} QD traMADol HCl 50 MG Zolpidem Tartrate 10 MG Zolpidem Tartrate 10 MG No 1{table t_at_be dtime_a s_neede d} QD Zolpidem Tartrate 10 MG Triamterene -HCTZ 37.5-25 MG Triamterene -HCTZ 37.5-25 MG No 1{table t_in_th e_morni ng} QD Triamteren e-HCTZ 37.5-25 MG Metoprolol Succinate ER 50 MG Metoprolol Succinate ER 50 MG No 1{table t} QD Metoprolol Succinate ER 50 MG FLUoxetine HCl 20 MG FLUoxetine HCl 20 MG No 1{capsu le} QD FLUoxetine HCl 20 MG Thyroid 60 MG Thyroid 60 MG No 1{table t_on_an _empty_ stomach } QD Thyroid 60 MG atorvastati n 20mg atorvastati n 20mg No QD atorvastat in 20mg Gabapentin 300 MG Gabapentin 300 MG No Gabapentin 300 MG SUMAtriptan Succinate 50 MG SUMAtriptan Succinate 50 MG No SUMAtripta n Succinate 50 MG Imitrex 50 MG Imitrex 50 MG No Imitrex 50 MG atorvastati n 20mg atorvastati n 20mg No QD atorvastat in 20mg Gabapentin 300 MG Gabapentin 300 MG No 1{capsu le} QD Gabapentin 300 MG Amitriptyli ne HCl 10 MG Amitriptyli ne HCl 10 MG No 1{table t_at_be dtime} QD Amitriptyl ine HCl 10 MG traMADol HCl 50 MG traMADol HCl 50 MG No 1{table t_as_ne eded} QD traMADol HCl 50 MG Zolpidem Tartrate 10 MG Zolpidem Tartrate 10 MG No 1{table t_at_be dtime_a s_neede d} QD Zolpidem Tartrate 10 MG Triamterene -HCTZ 37.5-25 MG Triamterene -HCTZ 37.5-25 MG No 1{table t_in_th e_morni ng} QD Triamteren e-HCTZ 37.5-25 MG Metoprolol Succinate ER 50 MG Metoprolol Succinate ER 50 MG No 1{table t} QD Metoprolol Succinate ER 50 MG FLUoxetine HCl 20 MG FLUoxetine HCl 20 MG No 1{capsu le} QD FLUoxetine HCl 20 MG SUMAtriptan 5 MG/ACT SUMAtriptan 5 MG/ACT No QD SUMAtripta n 5 MG/ACT Thyroid 60 MG Thyroid 60 MG No 1{table t_on_an _empty_ stomach } QD Thyroid 60 MG atorvastati n 20mg atorvastati n 20mg No QD atorvastat in 20mg Gabapentin 300 MG Gabapentin 300 MG No Gabapentin 300 MG SUMAtriptan Succinate 50 MG SUMAtriptan Succinate 50 MG No SUMAtripta n Succinate 50 MG Imitrex 50 MG Imitrex 50 MG No Imitrex 50 MG atorvastati n 20mg atorvastati n 20mg No QD atorvastat in 20mg Ibuprofen Ibuprofen No Ibuprofen Imitrex 50 MG Imitrex 50 MG No Imitrex 50 MG Gabapentin 300 MG Gabapentin 300 MG No 1{capsu le} QD Gabapentin 300 MG Amitriptyli ne HCl 10 MG Amitriptyli ne HCl 10 MG No 1{table t_at_be dtime} QD Amitriptyl ine HCl 10 MG traMADol HCl 50 MG traMADol HCl 50 MG No 1{table t_as_ne eded} QD traMADol HCl 50 MG Zolpidem Tartrate 10 MG Zolpidem Tartrate 10 MG No 1{table t_at_be dtime_a s_neede d} QD Zolpidem Tartrate 10 MG Triamterene -HCTZ 37.5-25 MG Triamterene -HCTZ 37.5-25 MG No 1{table t_in_th e_morni ng} QD Triamteren e-HCTZ 37.5-25 MG Metoprolol Succinate ER 50 MG Metoprolol Succinate ER 50 MG No 1{table t} QD Metoprolol Succinate ER 50 MG FLUoxetine HCl 20 MG FLUoxetine HCl 20 MG No 1{capsu le} QD FLUoxetine HCl 20 MG Thyroid 60 MG Thyroid 60 MG No 1{table t_on_an _empty_ stomach } QD Thyroid 60 MG FLUoxetine HCl 20 MG FLUoxetine HCl 20 MG No 1{capsu le} QD FLUoxetine HCl 20 MG atorvastati n 20mg atorvastati n 20mg No QD atorvastat in 20mg Gabapentin 300 MG Gabapentin 300 MG No Gabapentin 300 MG SUMAtriptan Succinate 50 MG SUMAtriptan Succinate 50 MG No SUMAtripta n Succinate 50 MG Imitrex 50 MG Imitrex 50 MG No Imitrex 50 MG atorvastati n 20mg atorvastati n 20mg No QD atorvastat in 20mg atorvastati n 20mg atorvastati n 20mg No atorvastat in 20mg Gabapentin 300 MG Gabapentin 300 MG No 1{capsu le} QD Gabapentin 300 MG Amitriptyli ne HCl 10 MG Amitriptyli ne HCl 10 MG No 1{table t_at_be dtime} QD Amitriptyl ine HCl 10 MG traMADol HCl 50 MG traMADol HCl 50 MG No 1{table t_as_ne eded} QD traMADol HCl 50 MG Zolpidem Tartrate 10 MG Zolpidem Tartrate 10 MG No 1{table t_at_be dtime_a s_neede d} QD Zolpidem Tartrate 10 MG Triamterene -HCTZ 37.5-25 MG Triamterene -HCTZ 37.5-25 MG No 1{table t_in_th e_morni ng} QD Triamteren e-HCTZ 37.5-25 MG Metoprolol Succinate ER 50 MG Metoprolol Succinate ER 50 MG No 1{table t} QD Metoprolol Succinate ER 50 MG FLUoxetine HCl 20 MG FLUoxetine HCl 20 MG No 1{capsu le} QD FLUoxetine HCl 20 MG Thyroid 60 MG Thyroid 60 MG No 1{table t_on_an _empty_ stomach } QD Thyroid 60 MG Triamterene -HCTZ 37.5-25 MG Triamterene -HCTZ 37.5-25 MG No 1{table t_in_th e_morni ng} QD Triamteren e-HCTZ 37.5-25 MG atorvastati n 20mg atorvastati n 20mg No QD atorvastat in 20mg Gabapentin 300 MG Gabapentin 300 MG No Gabapentin 300 MG SUMAtriptan Succinate 50 MG SUMAtriptan Succinate 50 MG No SUMAtripta n Succinate 50 MG Imitrex 50 MG Imitrex 50 MG No Imitrex 50 MG atorvastati n 20mg atorvastati n 20mg No QD atorvastat in 20mg Metoprolol Succinate ER 50 MG Metoprolol Succinate ER 50 MG No 1{table t} QD Metoprolol Succinate ER 50 MG Gabapentin 300 MG Gabapentin 300 MG No 1{capsu le} QD Gabapentin 300 MG Amitriptyli ne HCl 10 MG Amitriptyli ne HCl 10 MG No 1{table t_at_be dtime} QD Amitriptyl ine HCl 10 MG traMADol HCl 50 MG traMADol HCl 50 MG No 1{table t_as_ne eded} QD traMADol HCl 50 MG Zolpidem Tartrate 10 MG Zolpidem Tartrate 10 MG No 1{table t_at_be dtime_a s_neede d} QD Zolpidem Tartrate 10 MG Triamterene -HCTZ 37.5-25 MG Triamterene -HCTZ 37.5-25 MG No 1{table t_in_th e_morni ng} QD Triamteren e-HCTZ 37.5-25 MG Metoprolol Succinate ER 50 MG Metoprolol Succinate ER 50 MG No 1{table t} QD Metoprolol Succinate ER 50 MG FLUoxetine HCl 20 MG FLUoxetine HCl 20 MG No 1{capsu le} QD FLUoxetine HCl 20 MG Thyroid 60 MG Thyroid 60 MG No 1{table t_on_an _empty_ stomach } QD Thyroid 60 MG Amitriptyli ne HCl 10 MG Amitriptyli ne HCl 10 MG No 1{table t_at_be dtime} QD Amitriptyl ine HCl 10 MG atorvastati n 20mg atorvastati n 20mg No QD atorvastat in 20mg Gabapentin 300 MG Gabapentin 300 MG No Gabapentin 300 MG SUMAtriptan Succinate 50 MG SUMAtriptan Succinate 50 MG No SUMAtripta n Succinate 50 MG Imitrex 50 MG Imitrex 50 MG No Imitrex 50 MG atorvastati n 20mg atorvastati n 20mg No QD atorvastat in 20mg traMADol HCl 50 MG traMADol HCl 50 MG No 1{table t_as_ne eded} QD traMADol HCl 50 MG Gabapentin 300 MG Gabapentin 300 MG No 1{capsu le} QD Gabapentin 300 MG Amitriptyli ne HCl 10 MG Amitriptyli ne HCl 10 MG No 1{table t_at_be dtime} QD Amitriptyl ine HCl 10 MG traMADol HCl 50 MG traMADol HCl 50 MG No 1{table t_as_ne eded} QD traMADol HCl 50 MG Zolpidem Tartrate 10 MG Zolpidem Tartrate 10 MG No 1{table t_at_be dtime_a s_neede d} QD Zolpidem Tartrate 10 MG Triamterene -HCTZ 37.5-25 MG Triamterene -HCTZ 37.5-25 MG No 1{table t_in_th e_morni ng} QD Triamteren e-HCTZ 37.5-25 MG Metoprolol Succinate ER 50 MG Metoprolol Succinate ER 50 MG No 1{table t} QD Metoprolol Succinate ER 50 MG FLUoxetine HCl 20 MG FLUoxetine HCl 20 MG No 1{capsu le} QD FLUoxetine HCl 20 MG Thyroid 60 MG Thyroid 60 MG No 1{table t_on_an _empty_ stomach } QD Thyroid 60 MG Diclofenac Diclofenac No Diclofenac atorvastati n 20mg atorvastati n 20mg No QD atorvastat in 20mg Gabapentin 300 MG Gabapentin 300 MG No Gabapentin 300 MG SUMAtriptan Succinate 50 MG SUMAtriptan Succinate 50 MG No SUMAtripta n Succinate 50 MG Imitrex 50 MG Imitrex 50 MG No Imitrex 50 MG atorvastati n 20mg atorvastati n 20mg No QD atorvastat in 20mg Gabapentin 300 MG Gabapentin 300 MG No 1{capsu le} QD Gabapentin 300 MG Amitriptyli ne HCl 10 MG Amitriptyli ne HCl 10 MG No 1{table t_at_be dtime} QD Amitriptyl ine HCl 10 MG traMADol HCl 50 MG traMADol HCl 50 MG No 1{table t_as_ne eded} QD traMADol HCl 50 MG Zolpidem Tartrate 10 MG Zolpidem Tartrate 10 MG No 1{table t_at_be dtime_a s_neede d} QD Zolpidem Tartrate 10 MG Triamterene -HCTZ 37.5-25 MG Triamterene -HCTZ 37.5-25 MG No 1{table t_in_th e_morni ng} QD Triamteren e-HCTZ 37.5-25 MG Metoprolol Succinate ER 50 MG Metoprolol Succinate ER 50 MG No 1{table t} QD Metoprolol Succinate ER 50 MG FLUoxetine HCl 20 MG FLUoxetine HCl 20 MG No 1{capsu le} QD FLUoxetine HCl 20 MG Thyroid 60 MG Thyroid 60 MG No 1{table t_on_an _empty_ stomach } QD Thyroid 60 MG Gabapentin Gabapentin No Gabapentin atorvastati n 20mg atorvastati n 20mg No QD atorvastat in 20mg Gabapentin 300 MG Gabapentin 300 MG No Gabapentin 300 MG SUMAtriptan Succinate 50 MG SUMAtriptan Succinate 50 MG No SUMAtripta n Succinate 50 MG Imitrex 50 MG Imitrex 50 MG No Imitrex 50 MG atorvastati n 20mg atorvastati n 20mg No QD atorvastat in 20mg Gabapentin 300 MG Gabapentin 300 MG No 1{capsu le} QD Gabapentin 300 MG Thyroid 60 MG Thyroid 60 MG No 1{table t_on_an _empty_ stomach } QD Thyroid 60 MG Gabapentin 300 MG Gabapentin 300 MG No 1{capsu le} QD Gabapentin 300 MG Amitriptyli ne HCl 10 MG Amitriptyli ne HCl 10 MG No 1{table t_at_be dtime} QD Amitriptyl ine HCl 10 MG Metoprolol Succinate ER 50 MG Metoprolol Succinate ER 50 MG No 1{table t} QD Metoprolol Succinate ER 50 MG traMADol HCl 50 MG traMADol HCl 50 MG No 1{table t_as_ne eded} QD traMADol HCl 50 MG Zolpidem Tartrate 10 MG Zolpidem Tartrate 10 MG No 1{table t_at_be dtime_a s_neede d} QD Zolpidem Tartrate 10 MG Triamterene -HCTZ 37.5-25 MG Triamterene -HCTZ 37.5-25 MG No 1{table t_in_th e_morni ng} QD Triamteren e-HCTZ 37.5-25 MG Metoprolol Succinate ER 50 MG Metoprolol Succinate ER 50 MG No 1{table t} QD Metoprolol Succinate ER 50 MG FLUoxetine HCl 20 MG FLUoxetine HCl 20 MG No 1{capsu le} QD FLUoxetine HCl 20 MG Thyroid 60 MG Thyroid 60 MG No 1{table t_on_an _empty_ stomach } QD Thyroid 60 MG atorvastati n 20mg atorvastati n 20mg No QD atorvastat in 20mg Gabapentin 300 MG Gabapentin 300 MG No Gabapentin 300 MG SUMAtriptan Succinate 50 MG SUMAtriptan Succinate 50 MG No SUMAtripta n Succinate 50 MG Imitrex 50 MG Imitrex 50 MG No Imitrex 50 MG atorvastati n 20mg atorvastati n 20mg No QD atorvastat in 20mg Gabapentin 300 MG Gabapentin 300 MG No 1{capsu le} QD Gabapentin 300 MG Amitriptyli ne HCl 10 MG Amitriptyli ne HCl 10 MG No 1{table t_at_be dtime} QD Amitriptyl ine HCl 10 MG traMADol HCl 50 MG traMADol HCl 50 MG No 1{table t_as_ne eded} QD traMADol HCl 50 MG Zolpidem Tartrate 10 MG Zolpidem Tartrate 10 MG No 1{table t_at_be dtime_a s_neede d} QD Zolpidem Tartrate 10 MG Triamterene -HCTZ 37.5-25 MG Triamterene -HCTZ 37.5-25 MG No 1{table t_in_th e_morni ng} QD Triamteren e-HCTZ 37.5-25 MG Metoprolol Succinate ER 50 MG Metoprolol Succinate ER 50 MG No 1{table t} QD Metoprolol Succinate ER 50 MG FLUoxetine HCl 20 MG FLUoxetine HCl 20 MG No 1{capsu le} QD FLUoxetine HCl 20 MG Thyroid 60 MG Thyroid 60 MG No 1{table t_on_an _empty_ stomach } QD Thyroid 60 MG atorvastati n 20mg atorvastati n 20mg No QD atorvastat in 20mg Gabapentin 300 MG Gabapentin 300 MG No Gabapentin 300 MG SUMAtriptan Succinate 50 MG SUMAtriptan Succinate 50 MG No SUMAtripta n Succinate 50 MG Imitrex 50 MG Imitrex 50 MG No Imitrex 50 MG atorvastati n 20mg atorvastati n 20mg No QD atorvastat in 20mg Gabapentin 300 MG Gabapentin 300 MG No 1{capsu le} QD Gabapentin 300 MG Amitriptyli ne HCl 10 MG Amitriptyli ne HCl 10 MG No 1{table t_at_be dtime} QD Amitriptyl ine HCl 10 MG traMADol HCl 50 MG traMADol HCl 50 MG No 1{table t_as_ne eded} QD traMADol HCl 50 MG Zolpidem Tartrate 10 MG Zolpidem Tartrate 10 MG No 1{table t_at_be dtime_a s_neede d} QD Zolpidem Tartrate 10 MG Triamterene -HCTZ 37.5-25 MG Triamterene -HCTZ 37.5-25 MG No 1{table t_in_th e_morni ng} QD Triamteren e-HCTZ 37.5-25 MG Metoprolol Succinate ER 50 MG Metoprolol Succinate ER 50 MG No 1{table t} QD Metoprolol Succinate ER 50 MG FLUoxetine HCl 20 MG FLUoxetine HCl 20 MG No 1{capsu le} QD FLUoxetine HCl 20 MG Thyroid 60 MG Thyroid 60 MG No 1{table t_on_an _empty_ stomach } QD Thyroid 60 MG atorvastati n 20mg atorvastati n 20mg No QD atorvastat in 20mg Gabapentin 300 MG Gabapentin 300 MG No Gabapentin 300 MG SUMAtriptan Succinate 50 MG SUMAtriptan Succinate 50 MG No SUMAtripta n Succinate 50 MG Imitrex 50 MG Imitrex 50 MG No Imitrex 50 MG atorvastati n 20mg atorvastati n 20mg No QD atorvastat in 20mg Gabapentin 300 MG Gabapentin 300 MG No 1{capsu le} QD Gabapentin 300 MG Amitriptyli ne HCl 10 MG Amitriptyli ne HCl 10 MG No 1{table t_at_be dtime} QD Amitriptyl ine HCl 10 MG traMADol HCl 50 MG traMADol HCl 50 MG No 1{table t_as_ne eded} QD traMADol HCl 50 MG Zolpidem Tartrate 10 MG Zolpidem Tartrate 10 MG No 1{table t_at_be dtime_a s_neede d} QD Zolpidem Tartrate 10 MG Triamterene -HCTZ 37.5-25 MG Triamterene -HCTZ 37.5-25 MG No 1{table t_in_th e_morni ng} QD Triamteren e-HCTZ 37.5-25 MG Metoprolol Succinate ER 50 MG Metoprolol Succinate ER 50 MG No 1{table t} QD Metoprolol Succinate ER 50 MG FLUoxetine HCl 20 MG FLUoxetine HCl 20 MG No 1{capsu le} QD FLUoxetine HCl 20 MG Thyroid 60 MG Thyroid 60 MG No 1{table t_on_an _empty_ stomach } QD Thyroid 60 MG atorvastati n 20mg atorvastati n 20mg No QD atorvastat in 20mg Gabapentin 300 MG Gabapentin 300 MG No Gabapentin 300 MG SUMAtriptan Succinate 50 MG SUMAtriptan Succinate 50 MG No SUMAtripta n Succinate 50 MG Imitrex 50 MG Imitrex 50 MG No Imitrex 50 MG atorvastati n 20mg atorvastati n 20mg No QD atorvastat in 20mg Gabapentin 300 MG Gabapentin 300 MG No 1{capsu le} QD Gabapentin 300 MG Amitriptyli ne HCl 10 MG Amitriptyli ne HCl 10 MG No 1{table t_at_be dtime} QD Amitriptyl ine HCl 10 MG traMADol HCl 50 MG traMADol HCl 50 MG No 1{table t_as_ne eded} QD traMADol HCl 50 MG Immunizations Ordered Immunization Name Filled Immunization Name Date Status Comments Source SARS-COV-2 COVID-19 PFIZER VACCINE 2020-12-06 00:00:00 Completed [facility] SARS-COV-2 COVID-19 PFIZER VACCINE 2020-12-06 00:00:00 Completed [facility] SARS-COV-2 COVID-19 PFIZER VACCINE 2020-12-06 00:00:00 Completed [facility] SARS-COV-2 COVID-19 PFIZER VACCINE 2020-12-06 00:00:00 Completed [facility] SARS-COV-2 COVID-19 PFIZER VACCINE 2020-12-06 00:00:00 Completed [facility] SARS-COV-2 COVID-19 PFIZER VACCINE 2020-11-16 00:00:00 Completed [facility] SARS-COV-2 COVID-19 PFIZER VACCINE 2020-11-16 [facility] [facility] SARS-COV-2 COVID-19 PFIZER VACCINE 2020-11-16 00:00:00 Completed [facility] SARS-COV-2 COVID-19 PFIZER VACCINE 2020-11-16 00:00:00 Completed [facility] SARS-COV-2 COVID-19 PFIZER VACCINE 2020-11-16 00:00:00 Completed [facility] COVID-19 Bivalent vaccine PFIZER 12+ Unknown Completed Yovana Se ybold - External COVID-19 VACCINE PFIZER 12+ (Guan cap) Unknown Completed Yovana Seybold - External COVID-19 VACCINE PFIZER 12+ (Guan cap) Unknown Completed Yovana Seybold - External Vital Signs Vital Name Observation Time Observation Value Comments S ource Systolic blood pressure 2023-09-17 20:07:00 126 mm[Hg] Yovana Seybo ld - External Diastolic blood pressure 2023-09-17 20:07:00 87 mm[Hg] Yovana Seybo ld - External Heart rate 2023-09-17 20:07:00 83 /min Kel y Seybold - External Body temperature 2023-09-17 20:07:00 35.78 Jaja Yovana Seybold - External Respiratory rate 2023-09-17 20:07:00 20 /min Yovana Seybold - External Body height 2023-09-17 20:07:00 165.1 cm Crystal ey Seybold - External Body weight 2023-09-17 20:07:00 73.483 kg Crystal ey Seybold - External BMI 2023-09-17 20:07:00 26.96 kg/m2 Crystal ey Seybold - External Oxygen saturation in Arterial blood by Pulse oximetry 2023-09-17 20:07:00 99 /min Yovana Singho ld - External height 2023-05-23 10:40:00 66 [in_i] [facility] weight 2023-05-23 10:40:00 178 [lb_av] Comm on [facility] bmi 2023-05-23 10:40:00 28.73 kg/m2 Comm on [facility] blood pressure systolic 2023-05-23 10:40:00 125 mm[Hg] [facility] blood pressure diastolic 2023-05-23 10:40:00 75 mm[Hg] [facility] height 2023-03-13 08:30:00 66 [in_i] Commo n [facility] weight 2023-03-13 08:30:00 178.2 [lb_av] Co mmon [facility] temperature 2023-03-13 08:30:00 98.1 [degF] Com [facility] bmi 2023-03-13 08:30:00 28.76 kg/m2 Comm on [facility] blood pressure systolic 2023-03-13 08:30:00 124 mm[Hg] [facility] blood pressure diastolic 2023-03-13 08:30:00 80 mm[Hg] [facility] height 2023-03-06 13:40:00 66 [in_i] Commo n [facility] weight 2023-03-06 13:40:00 176 [lb_av] Comm on [facility] temperature 2023-03-06 13:40:00 97.7 [degF] Com mon [facility] bmi 2023-03-06 13:40:00 28.4 kg/m2 [facility] oximetry 2023-03-06 13:40:00 98 % Commo [facility] respiratory rate 2023-03-06 13:40:00 18 /min Common [facility] blood pressure systolic 2023-03-06 13:40:00 124 mm[Hg] [facility] blood pressure diastolic 2023-03-06 13:40:00 81 mm[Hg] [facility] height 2023-02-11 11:40:00 66 [in_i] Commo n [facility] weight 2023-02-11 11:40:00 175 [lb_av] Comm on [facility] bmi 2023-02-11 11:40:00 28.24 kg/m2 Comm on [facility] blood pressure systolic 2023-02-11 11:40:00 128 mm[Hg] Common [facility] blood pressure diastolic 2023-02-11 11:40:00 74 mm[Hg] [facility] height 2022-11-14 08:00:00 66 [in_i] Commo n [facility] weight 2022-11-14 08:00:00 176.0 [lb_av] Co mmon [facility] temperature 2022-11-14 08:00:00 97.4 [degF] Com mon [facility] bmi 2022-11-14 08:00:00 28.4 kg/m2 [facility] oximetry 2022-11-14 08:00:00 97 % [facility] respiratory rate 2022-11-14 08:00:00 17 /min Common [facility] blood pressure systolic 2022-11-14 08:00:00 115 mm[Hg] [facility] blood pressure diastolic 2022-11-14 08:00:00 76 mm[Hg] [facility] height 2022-11-11 11:20:00 66 [in_i] Commo n [facility] weight 2022-11-11 11:20:00 176 [lb_av] Comm on [facility] bmi 2022-11-11 11:20:00 28.4 kg/m2 Com[facility] blood pressure systolic 2022-11-11 11:20:00 125 mm[Hg] [facility] blood pressure diastolic 2022-11-11 11:20:00 74 mm[Hg] [facility] height 2022-09-26 11:50:00 66 [in_i] Commo n [facility] weight 2022-09-26 11:50:00 176 [lb_av] Comm on [facility] bmi 2022-09-26 11:50:00 28.4 kg/m2 Commo n [facility] height 2022-08-14 09:20:00 66 [in_i] Commo n [facility] weight 2022-08-14 09:20:00 176 [lb_av] Comm on [facility] temperature 2022-08-14 09:20:00 98 [degF] Comm on [facility] bmi 2022-08-14 09:20:00 28.4 kg/m2 Com[facility] blood pressure systolic 2022-08-14 09:20:00 121 mm[Hg] Common [facility] blood pressure diastolic 2022-08-14 09:20:00 76 mm[Hg] Common [facility] height 2022-08-13 14:40:00 66 [in_i] Commo n [facility] weight 2022-08-13 14:40:00 175 [lb_av] Comm on [facility] bmi 2022-08-13 14:40:00 28.24 kg/m2 Comm on [facility] height 2022-07-24 14:40:00 66 [in_i] Commo n [facility] weight 2022-07-24 14:40:00 176.0 [lb_av] Co mmon [facility] temperature 2022-07-24 14:40:00 97.5 [degF] Com mon [facility] bmi 2022-07-24 14:40:00 28.4 kg/m2 Com[facility] oximetry 2022-07-24 14:40:00 96 % [facility] respiratory rate 2022-07-24 14:40:00 17 /min Common [facility] blood pressure systolic 2022-07-24 14:40:00 114 mm[Hg] Common [facility] blood pressure diastolic 2022-07-24 14:40:00 81 mm[Hg] Common [facility] height 2022-07-15 09:20:00 66 [in_i] Commo n [facility] weight 2022-07-15 09:20:00 179 [lb_av] Comm on [facility] temperature 2022-07-15 09:20:00 98 [degF] Comm on [facility] bmi 2022-07-15 09:20:00 28.89 kg/m2 Comm on [facility] height 2022-06-24 11:00:00 66 [in_i] Commo n [facility] weight 2022-06-24 11:00:00 178.9 [lb_av] Co mmon [facility] temperature 2022-06-24 11:00:00 97.9 [degF] Com mon [facility] bmi 2022-06-24 11:00:00 28.87 kg/m2 Comm on [facility] oximetry 2022-06-24 11:00:00 97 % [facility] respiratory rate 2022-06-24 11:00:00 18 /min Common [facility] blood pressure systolic 2022-06-24 11:00:00 121 mm[Hg] Common [facility] blood pressure diastolic 2022-06-24 11:00:00 64 mm[Hg] Common [facility] height 2022-04-22 13:50:00 66 [in_i] Commo n [facility] weight 2022-04-22 13:50:00 178 [lb_av] Comm on [facility] temperature 2022-04-22 13:50:00 97.6 [degF] Com mon [facility] bmi 2022-04-22 13:50:00 28.73 kg/m2 Comm on [facility] oximetry 2022-04-22 13:50:00 95 % Commo n [facility] respiratory rate 2022-04-22 13:50:00 16 /min Common [facility] blood pressure systolic 2022-04-22 13:50:00 121 mm[Hg] Common [facility] blood pressure diastolic 2022-04-22 13:50:00 79 mm[Hg] [facility] height 2022-03-29 14:00:00 65 [in_i] Commo n [facility] weight 2022-03-29 14:00:00 176.1 [lb_av] Co mmon [facility] temperature 2022-03-29 14:00:00 97.9 [degF] Com [facility] bmi 2022-03-29 14:00:00 29.3 kg/m2 Commo n [facility] oximetry 2022-03-29 14:00:00 95 % Commo n [facility] respiratory rate 2022-03-29 14:00:00 17 /min [facility] blood pressure systolic 2022-03-29 14:00:00 115 mm[Hg] [facility] blood pressure diastolic 2022-03-29 14:00:00 73 mm[Hg] [facility] Procedures Procedure Date / Time Performed Performing Clinician Source REFERRAL- REQUEST/RESPONSE 2021-05-23 05:01:00 Doctor Unassigned, [facility] OP CLINIC NOTES/CONSULTS 2019-03-19 05:01:00 Doc tor Unassigned, [facility] REFERRAL- REQUEST/RESPONSE 2016 05:01:00 Doctor Unassigned, [facility] - PRESCRIPTION / ORDER 2015-05-25 05:01:00 Doctor Unassigned, [facility] REFERRAL- REQUEST/RESPONSE 2015-04-20 05:01:00 Doctor Unassigned, [facility] PATIENT QUESTIONNAIRE 2014-07-14 06:01:00 Doctor Unassigned, [facility] - PRESCRIPTION / ORDER 2014-07-04 06:01:00 Doctor Unassigned, [facility] Encounters Start Date/Time End Date/Time Encounter Type Admission Type Attending [facility] Care Department Encounter ID Source 2023-03-13 14:11:01 [facility] [id number] [facility] 2023-03-05 16:10:01 [facility] [id number] [facility] 2022-08-12 09:24:03 [facility] [id number] [facility] 2022-07-15 09:15:03 [facility] [id number] [facility] 2022-06-20 09:37:04 [facility] [id number] [facility] 2022-04-22 13:40:01 [facility] [id number] [facility] 2022-03-29 13:14:01 [facility] [id number] [facility] 2022-03-27 13:34:02 Outpatient [facility] [id number] [facility] 2022-03-19 10:01:02 Outpatient [facility] [id number] [facility] 2022-01-02 10:42:05 Outpatient [facility] [id number] [facility] 2023-10-27 13:45:00 2023-10-27 13:45:00 Outpatient JOHANA DIETZ YOVANA HOFFMAN [id number] [facility] 2023-10-16 10:40:00 2023-10-16 10:40:00 Outpatient LANDRY ENCINAS [facility] [id number] [facility] 2023-10-03 09:00:00 2023-10-03 09:00:00 Outpatient DIANNE PADILLA [facility] [id number] [facility] 2023-09-24 00:00:00 2023-09-24 00:00:00 Outpatient JOHANNA LEE [id number] [facility] 2023-09-17 14:15:00 2023-09-17 14:15:00 Outpatient JOHANNA LEE [id number] [facility] 2023-09-04 00:00:00 2023-09-04 00:00:00 Outpatient MD YOVANA MERLOS [id number] [facility] 2023-09-04 00:00:00 2023-09-04 00:00:00 Outpatient MD YOVANA MERLOS [id number] [facility] 2023-05-23 00:00:00 2023-05-23 00:00:00 OFFICE VISIT ESTAB PT LEVEL 4 STLMLC STLMLC [id number] [facility] 2023-03-25 00:00:00 2023-03-25 00:00:00 (WEB) STLMLC STLMLC [id number] [facility] 2023-03-25 00:00:00 2023-03-25 00:00:00 (WEB) STLMLC STLMLC [id number] [facility] 2023-03-21 00:00:00 2023-03-21 00:00:00 (TEL) STLMLC STLMLC [id number] [facility] 2023-03-19 00:00:00 2023-03-19 00:00:00 (TEL) STLMLC STLMLC [id number] [facility] 2023-03-13 00:00:00 2023-03-13 00:00:00 OFFICE VISIT ESTAB PT LEVEL 3 STLMLC STLMLC [id number] [facility] 2023-03-10 14:30:00 2023-03-10 14:41:01 Outpatient R SYDNEE TORRES [facility] [id number] [facility] 2023-03-10 14:30:00 2023-03-10 14:41:01 Office Visit Sydnee Torres [facility] 1.2.840.114 350.1.13.10 [id number] [id number] [facility] 2023-03-06 00:00:00 2023-03-06 00:00:00 OFFICE VISIT ESTAB PT LEVEL 3 STLMLC STLMLC [id number] [facility] 2023-03-05 00:00:00 2023-03-05 00:00:00 (WEB) STLMLC STLMLC [id number] [facility] 2023-02-24 00:00:00 2023-02-24 00:00:00 (TEL) STLMLC STLMLC [id number] [facility] 2023-02-24 00:00:00 2023-02-24 00:00:00 (WEB) STLMLC STLMLC [id number] [facility] 2023-02-11 00:00:00 2023-02-11 00:00:00 OFFICE VISIT ESTAB PT LEVEL 4 STLMLC STLMLC [id number] [facility] 2023-02-11 00:00:00 2023-02-11 00:00:00 (WEB) STLMLC STLMLC [id number] [facility] 2022-12-23 00:00:00 2022-12-23 00:00:00 (TEL) STLMLC STLMLC [id number] [facility] 2022-12-16 00:00:00 2022-12-16 00:00:00 (TEL) STLMLC STLMLC [id number] [facility] 2022-12-10 00:00:00 2022-12-10 00:00:00 (TEL) STLMLC STLMLC [id number] [facility] 2022-11-20 00:00:00 2022-11-20 00:00:00 (WEB) STLMLC STLMLC [id number] [facility] 2022-11-18 00:00:00 2022-11-18 00:00:00 (TEL) STLMLC STLMLC [id number] [facility] 2022-11-14 00:00:00 2022-11-14 00:00:00 OFFICE VISIT ESTAB PT LEVEL 3 STLMLC STLMLC [id number] [facility] 2022-11-11 00:00:00 2022-11-11 00:00:00 OFFICE VISIT ESTAB PT LEVEL 4 STLMLC STLMLC [id number] [facility] 2022-11-11 00:00:00 2022-11-11 00:00:00 (TEL) STLMLC STLMLC [id number] [facility] 2022-09-26 00:00:00 2022-09-26 00:00:00 (WEB) STLMLC STLMLC [id number] [facility] 2022-09-26 00:00:00 2022-09-26 00:00:00 OFFICE VISIT ESTAB PT LEVEL 3 STLMLC STLMLC [id number] [facility] 2022-08-23 00:00:00 2022-08-23 00:00:00 (TEL) STLMLC STLMLC [id number] [facility] 2022-08-14 00:00:00 2022-08-14 00:00:00 OFFICE VISIT ESTAB PT LEVEL 4 STLMLC STLMLC [id number] [facility] 2022-08-14 00:00:00 2022-08-14 00:00:00 (TEL) STLMLC STLMLC [id number] [facility] 2022-08-13 00:00:00 2022-08-13 00:00:00 OFFICE VISIT EST PT LEVEL 3 STLMLC STLMLC [id number] [facility] 2022-08-11 00:00:00 2022-08-11 00:00:00 (WEB) STLMLC STLMLC [id number] [facility] 2022-07-24 00:00:00 2022-07-24 00:00:00 (TEL) STLMLC STLMLC [id number] [facility] 2022-07-24 00:00:00 2022-07-24 00:00:00 OFFICE VISIT EST PT LEVEL 3 STLMLC STLMLC [id number] [facility] 2022-07-15 00:00:00 2022-07-15 00:00:00 OFFICE VISIT EST PT LEVEL 3 STLMLC STLMLC [id number] [facility] 2022-07-15 00:00:00 2022-07-15 00:00:00 (TEL) STLMLC STLMLC [id number] [facility] 2022-06-24 00:00:00 2022-06-24 00:00:00 OFFICE VISIT ESTAB PT LEVEL 4 STLMLC STLMLC [id number] [facility] 2022-05-31 00:00:00 2022-05-31 00:00:00 (WEB) STLMLC STLMLC [id number] [facility] 2022-04-22 00:00:00 2022-04-22 00:00:00 OFFICE VISIT ESTAB PT LEVEL 4 STLMLC STLMLC [id number] [facility] 2022-04-22 00:00:00 2022-04-22 00:00:00 (TEL) STLMLC STLMLC [id number] [facility] 2022-03-29 00:00:00 2022-03-29 00:00:00 OFFICE VISIT NEW PT LEVEL 4 [facility] [id number] [facility] 2022-03-06 02:45:00 2022-03-06 02:45:00 Outpatient EMMA NAQVI [id number] David ortiz [facility] 2021-05-23 00:00:00 2021-05-23 00:00:00 Orders Only Doctor Unassigned, [facility] 1.2840.114 350.1.13.10 4.2.7.2.686 [id number] [facility] 2020-12-07 12:40:00 2020-12-07 12:40:00 Outpatient CHARLY BATES [facility] [id number] [facility] 2020-12-06 14:40:00 2020-12-06 14:31:29 Outpatient CHARLY BATES [facility] [id number] [facility] 2020-11-17 12:40:00 2020-11-17 12:40:00 Outpatient [facility] [id number] [facility] 2020-11-16 12:40:00 2020-11-16 12:40:00 Outpatient [facility] [id number] [facility] 2020-11-16 12:40:00 2020-11-16 12:36:53 Outpatient CHARLY BATES [facility] [id number] [facility] 2019-03-19 00:00:00 2019-03-19 00:00:00 Orders Only Doctor Unassigned, [facility] 1.2840.114 350.1.13.10 4.2.7.2.686 [id number] [id number] [facility] 2019-03-19 00:00:00 2019-03-19 00:00:00 Orders Only Doctor Unassigned, [facility] 1.2840.114 350.1.13.10 4.2.7.2.686 [id number] [id number] 2016 00:00:00 2016 00:00:00 Orders Only Doctor Unassigned, [facility] 1.2.840.114 350.1.13.10 4.2.7.2.686 [id number] [id number] [facility] 2016 00:00:00 2016 00:00:00 Orders Only Doctor Unassigned, [facility] 1.2.840.114 350.1.13.10 4.2.7.2.686 [id number] [id number] 2015-05-25 00:00:00 2015-05-25 00:00:00 Orders Only Doctor Unassigned, [facility] 1.2.840.114 350.1.13.10 4.2.7.2.686 [id number] [id number] [facility] 2015-05-25 00:00:00 2015-05-25 00:00:00 Orders Only Doctor Unassigned, [facility] 1.2.840.114 350.1.13.10 4.2.7.2.686 [id number] [id number] 2015-04-20 00:00:00 2015-04-20 00:00:00 Orders Only Doctor Unassigned, [facility] 1.2.840.114 350.1.13.10 4.2.7.2.686 [id number] [id number] [facility] 2015-04-20 00:00:00 2015-04-20 00:00:00 Orders Only Doctor Unassigned, [facility] 1.2.840.114 350.1.13.10 4.2.7.2.686 [id number] [id number] 2014-07-14 00:00:00 2014-07-14 00:00:00 Orders Only Doctor Unassigned, [facility] 1.2.840.114 350.1.13.10 4.2.7.2.686 [id number] [id number] [facility] 2014-07-14 00:00:00 2014-07-14 00:00:00 Orders Only Doctor Unassigned, [facility] 1.2.840.114 350.1.13.10 4.2.7.2.686 [id number] [id number] 2014-07-04 00:00:00 2014-07-04 00:00:00 Orders Only Doctor Unassigned, [facility] 1.2.840.114 350.1.13.10 4.2.7.2.686 [id number] [id number] [facility] 2014-07-04 00:00:00 2014-07-04 00:00:00 Orders Only Doctor Unassigned, [facility] 1.2.840.114 350.1.13.10 4.2.7.2.686 [id number] [id number] Results Test Description Test Time Test Comments Results Result Co mments Source LIPID PANEL WITH REFLEX DIRECT [id number] 00:00:00* Test Item Value Reference Range Interpretation Comme nts CALC LDL CHOL (test code = 68474-2) 104 MG/DL See_Comment H [Automated [employer]] The system which generated this result transmitted reference range: <100 MG/DL. The reference range was not used to interpret this result as normal/abnormal. CHOLESTEROL (test code = 2093-3) 188 MG/DL See_Comment [[employer]] The system which generated this result transmitted reference range: <200 MG/DL. The reference range was not used to interpret this result as normal/abnormal. HDL CHOLESTEROL (test code = 2085-9) 44 MG/DL See_Comment [[employer]] The system which generated this result transmitted reference range: >39 MG/DL. The reference range was not used to interpret this result as normal/abnormal. RISK RATIO LDL/HDL (test code = 36376-8) 2.36 RATIO See_Comment [Automated message] The system which generated this result transmitted reference range: <3.22 RATIO. The reference range was not used to interpret this result as normal/abnormal. TRIGLYCERIDES (test code = 2571-8) 280 MG/DL See_Comment H [Automated messa ge] The system which generated this result transmitted reference range: <150 MG/DL. The reference range was not used to interpret this result as normal/abnormal. PATHOLOGIST SMEAR [id number] 00:00:00* Test Item Value Reference Range Interpretation Comme nts BASOPHILS (test code = 93457-4) 2.6 % COMMENTS (test code = 61927-9) (NOTE) DIAGNOSIS: (test code = 75259-5) (NOTE) EOSINOPHILS (test code = 97200-0) 1.7 % HEMATOCRIT (test code = 44828-1) 46.3 % See_Comment H [Automated messa ge] The system which generated this result transmitted reference range: 34.0-45.0 %. The reference range was not used to interpret this result as normal/abnormal. HEMOGLOBIN (test code = 718-7) 16.1 G/DL See_Comment H [Automated messa ge] The system which generated this result transmitted reference range: 11.5-15.5 G/DL. The reference range was not used to interpret this result as normal/abnormal. LYMPHOCYTES (test code = 61609-3) 26.1 % MCH (test code = 38255-5) 33.0 PG See_Comment [Automated messa ge] The system which generated this result transmitted reference range: 25.0-33.0 PG. The reference range was not used to interpret this result as normal/abnormal. MCHC (test code = 13708-8) 34.8 G/DL See_Comment [Automated messa ge] The system which generated this result transmitted reference range: 31.0-36.0 G/DL. The reference range was not used to interpret this result as normal/abnormal. MCV (test code = 18474-3) 94.9 fL See_Comment [Automated messa ge] The system which generated this result transmitted reference range: 80.0-99.0 fL. The reference range was not used to interpret this result as normal/abnormal. MICROSCOPIC DESCRIPTION: (test code = 49469-3) (NOTE) MONOCYTES (test code = 68551-7) 7.8 % NEUTROPHILS (test code = 80136-5) 61.8 % PATHOLOGIST: (test code = 65124-7) (NOTE) PLATELET COUNT (test code = 49574-1) 308 K/UL See_Comment [Automated messa ge] The system which generated this result transmitted reference range: 130-400 K/UL. The reference range was not used to interpret this result as normal/abnormal. RBC (test code = 85878-3) 4.88 M/UL See_Comment [Automated messa ge] The system which generated this result transmitted reference range: 3.80-5.40 M/UL. The reference range was not used to interpret this result as normal/abnormal. RDW (test code = 50301-7) 12.6 % See_Comment [Automated messa ge] The system which generated this result transmitted reference range: 11.5-15.0 %. The reference range was not used to interpret this result as normal/abnormal. WBC (test code = 87342-4) 11.1 K/UL See_Comment H [Automated messa ge] The system which generated this result transmitted reference range: 3.5-11.0 K/UL. The reference range was not used to interpret this result as normal/abnormal. TSH + FREE T4 [id number] 00:00:00* Test Item Value Reference Range Interpretation Comme nts FREE T4 (THYROXINE) (test code = 3024-7) 1.02 NG/DL See_Comment [Automated message] The system which generated this result transmitted reference range: 0.80-1.90 NG/DL. The reference range was not used to interpret this result as normal/abnormal. TSH, THIRD GENERATION (test code = 95924-6) 2.950 UIU/ML See_Comment [Automated messa ge] The system which generated this result transmitted reference range: 0.400-4.100 UIU/ML. The reference range was not used to interpret this result as normal/abnormal. COMPREHENSIVE METABOLIC [id number] 00:00:00* Test Item Value Reference Range Interpretation Comme nts ALBUMIN (test code = 1751-7) 4.7 G/DL See_Comment [Automated messa ge] The system which generated this result transmitted reference range: 3.5-5.2 G/DL. The reference range was not used to interpret this result as normal/abnormal. ALKALINE PHOSPHATASE (test code = 6768-6) 76 U/L See_Comment [Automated message] The system which generated this result transmitted reference range: 40-115 U/L. The reference range was not used to interpret this result as normal/abnormal. BILIRUBIN, TOTAL (test code = 1975-2) 0.3 MG/DL See_Comment [Automated message] The system which generated this result transmitted reference range: <=1.2 MG/DL. The reference range was not used to interpret this result as normal/abnormal. BUN (test code = 3094-0) 11 MG/DL See_Comment [Automated messa ge] The system which generated this result transmitted reference range: 6-20 MG/DL. The reference range was not used to interpret this result as normal/abnormal. CALCIUM (test code = 55933-8) 10.1 MG/DL See_Comment [Automated messa ge] The system which generated this result transmitted reference range: 8.5-10.5 MG/DL. The reference range was not used to interpret this result as normal/abnormal. CALC A/G RATIO (test code = 1759-0) 1.9 RATIO See_Comment [Automated messa ge] The system which generated this result transmitted reference range: 1.0-2.6 RATIO. The reference range was not used to interpret this result as normal/abnormal. CALC BUN/CREAT (test code = 3097-3) 10 RATIO See_Comment [Automated messa ge] The system which generated this result transmitted reference range: 6-28 RATIO. The reference range was not used to interpret this result as normal/abnormal. CALC GLOBULIN (test code = 09470-4) 2.5 G/DL See_Comment [Automated messa ge] The system which generated this result transmitted reference range: 1.9-3.7 G/DL. The reference range was not used to interpret this result as normal/abnormal. CARBON DIOXIDE (test code = 1963-8) 26 MEQ/L See_Comment [Automated messa ge] The system which generated this result transmitted reference range: 19-31 MEQ/L. The reference range was not used to interpret this result as normal/abnormal. CHLORIDE (test code = 2075-0) 103 MEQ/L See_Comment [Automated messa ge] The system which generated this result transmitted reference range: 95-107 MEQ/L. The reference range was not used to interpret this result as normal/abnormal. CREATININE (test code = 2160-0) 1.07 MG/DL See_Comment [Automated messa ge] The system which generated this result transmitted reference range: 0.60-1.30 MG/DL. The reference range was not used to interpret this result as normal/abnormal. eGFR (2020 CKD-EPI) (test code = 32812-6) 66 ML/MIN/1.73 See_Comment [Automated messa ge] The system which generated this result transmitted reference range: >60 ML/MIN/1.73. The reference range was not used to interpret this result as normal/abnormal. GLUCOSE (test code = 1558-6) 81 MG/DL See_Comment [Automated messa ge] The system which generated this result transmitted reference range: 70-99 MG/DL. The reference range was not used to interpret this result as normal/abnormal. POTASSIUM (test code = 2823-3) 4.7 MEQ/L See_Comment [Automated messa ge] The system which generated this result transmitted reference range: 3.5-5.4 MEQ/L. The reference range was not used to interpret this result as normal/abnormal. PROTEIN, TOTAL (test code = 2885-2) 7.2 G/DL See_Comment [Automated messa ge] The system which generated this result transmitted reference range: 6.1-8.3 G/DL. The reference range was not used to interpret this result as normal/abnormal. AST (test code = 1920-8) 23 U/L See_Comment [Automated messa ge] The system which generated this result transmitted reference range: 9-40 U/L. The reference range was not used to interpret this result as normal/abnormal. ALT (test code = 1742-6) 39 U/L See_Comment [Automated messa ge] The system which generated this result transmitted reference range: 5-40 U/L. The reference range was not used to interpret this result as normal/abnormal. SODIUM (test code = 2951-2) 141 MEQ/L See_Comment [Automated messa ge] The system which generated this result transmitted reference range: 133-146 MEQ/L. The reference range was not used to interpret this result as normal/abnormal. HEMOGLOBIN [id number] 00:00:00* Test Item Value Reference Range Interpretation Comme nts HEMOGLOBIN A1c (test code = 4548-4) 5.8 % See_Comment H [Automated messa ge] The system which generated this result transmitted reference range: 4.2-5.6 %. The reference range was not used to interpret this result as normal/abnormal. LIPID PANEL WITH REFLEX DIRECT [id number] 00:00:00* Test Item Value Reference Range Interpretation Comme nts CALC LDL CHOL (test code = 07907-5) 152 MG/DL See_Comment H [Automated messa ge] The system which generated this result transmitted reference range: <100 MG/DL. The reference range was not used to interpret this result as normal/abnormal. CHOLESTEROL (test code = 2093-3) 232 MG/DL See_Comment H [Automated messa ge] The system which generated this result transmitted reference range: <200 MG/DL. The reference range was not used to interpret this result as normal/abnormal. HDL CHOLESTEROL (test code = 2085-9) 42 MG/DL See_Comment [Automated messa ge] The system which generated this result transmitted reference range: >39 MG/DL. The reference range was not used to interpret this result as normal/abnormal. RISK RATIO LDL/HDL (test code = 50440-2) 3.62 RATIO See_Comment H [Automated message] The system which generated this result transmitted reference range: <3.22 RATIO. The reference range was not used to interpret this result as normal/abnormal. TRIGLYCERIDES (test code = 2571-8) 224 MG/DL See_Comment H [Automated messa ge] The system which generated this result transmitted reference range: <150 MG/DL. The reference range was not used to interpret this result as normal/abnormal. PATHOLOGIST SMEAR [id number] 00:00:00* Test Item Value Reference Range Interpretation Comme nts BASOPHILS (test code = 16528-4) 0.8 % COMMENTS (test code = 99205-7) (NOTE) DIAGNOSIS: (test code = 74304-1) (NOTE) EOSINOPHILS (test code = 88179-5) 2.5 % HEMATOCRIT (test code = 23326-6) 47.9 % See_Comment H [Automated messa ge] The system which generated this result transmitted reference range: 34.0-45.0 %. The reference range was not used to interpret this result as normal/abnormal. HEMOGLOBIN (test code = 718-7) 16.4 G/DL See_Comment H [Automated messa ge] The system which generated this result transmitted reference range: 11.5-15.5 G/DL. The reference range was not used to interpret this result as normal/abnormal. LYMPHOCYTES (test code = 49156-8) 25.6 % MCH (test code = 89939-0) 32.0 PG See_Comment [Automated messa ge] The system which generated this result transmitted reference range: 25.0-33.0 PG. The reference range was not used to interpret this result as normal/abnormal. MCHC (test code = 95888-1) 34.2 G/DL See_Comment [Automated messa ge] The system which generated this result transmitted reference range: 31.0-36.0 G/DL. The reference range was not used to interpret this result as normal/abnormal. MCV (test code = 53159-2) 93.4 fL See_Comment [Automated messa ge] The system which generated this result transmitted reference range: 80.0-99.0 fL. The reference range was not used to interpret this result as normal/abnormal. MICROSCOPIC DESCRIPTION: (test code = 12766-1) (NOTE) MONOCYTES (test code = 26197-3) 8.3 % NEUTROPHILS (test code = 57820-4) 62.8 % PATHOLOGIST: (test code = 12634-1) (NOTE) PLATELET COUNT (test code = 78891-7) 290 K/UL See_Comment [Automated messa ge] The system which generated this result transmitted reference range: 130-400 K/UL. The reference range was not used to interpret this result as normal/abnormal. RBC (test code = 16870-1) 5.13 M/UL See_Comment [Automated messa ge] The system which generated this result transmitted reference range: 3.80-5.40 M/UL. The reference range was not used to interpret this result as normal/abnormal. RDW (test code = 97129-4) 12.7 % See_Comment [Automated messa ge] The system which generated this result transmitted reference range: 11.5-15.0 %. The reference range was not used to interpret this result as normal/abnormal. WBC (test code = 98255-0) 8.0 K/UL See_Comment [Automated messa ge] The system which generated this result transmitted reference range: 3.5-11.0 K/UL. The reference range was not used to interpret this result as normal/abnormal. TSH + FREE T4 [id number] 00:00:00* Test Item Value Reference Range Interpretation Comme nts FREE T4 (THYROXINE) (test code = 3024-7) 0.91 NG/DL See_Comment [Automated message] The system which generated this result transmitted reference range: 0.80-1.90 NG/DL. The reference range was not used to interpret this result as normal/abnormal. TSH, THIRD GENERATION (test code = 14475-3) 2.820 UIU/ML See_Comment [Automated messa ge] The system which generated this result transmitted reference range: 0.400-4.100 UIU/ML. The reference range was not used to interpret this result as normal/abnormal. COMPREHENSIVE METABOLIC [id number] 00:00:00* Test Item Value Reference Range Interpretation Comme nts ALBUMIN (test code = 1751-7) 4.7 G/DL See_Comment [Automated messa ge] The system which generated this result transmitted reference range: 3.5-5.2 G/DL. The reference range was not used to interpret this result as normal/abnormal. ALKALINE PHOSPHATASE (test code = 6768-6) 74 U/L See_Comment [Automated message] The system which generated this result transmitted reference range: 40-115 U/L. The reference range was not used to interpret this result as normal/abnormal. BILIRUBIN, TOTAL (test code = 1975-2) 0.5 MG/DL See_Comment [Automated message] The system which generated this result transmitted reference range: <=1.2 MG/DL. The reference range was not used to interpret this result as normal/abnormal. BUN (test code = 3094-0) 11 MG/DL See_Comment [Automated messa ge] The system which generated this result transmitted reference range: 6-20 MG/DL. The reference range was not used to interpret this result as normal/abnormal. CALCIUM (test code = 20490-3) 10.2 MG/DL See_Comment [Automated messa ge] The system which generated this result transmitted reference range: 8.5-10.5 MG/DL. The reference range was not used to interpret this result as normal/abnormal. CALC A/G RATIO (test code = 1759-0) 1.7 RATIO See_Comment [Automated messa ge] The system which generated this result transmitted reference range: 1.0-2.6 RATIO. The reference range was not used to interpret this result as normal/abnormal. CALC BUN/CREAT (test code = 3097-3) 11 RATIO See_Comment [Automated messa ge] The system which generated this result transmitted reference range: 6-28 RATIO. The reference range was not used to interpret this result as normal/abnormal. CALC GLOBULIN (test code = 45702-4) 2.8 G/DL See_Comment [Automated messa ge] The system which generated this result transmitted reference range: 1.9-3.7 G/DL. The reference range was not used to interpret this result as normal/abnormal. CARBON DIOXIDE (test code = 1963-8) 27 MEQ/L See_Comment [Automated messa ge] The system which generated this result transmitted reference range: 19-31 MEQ/L. The reference range was not used to interpret this result as normal/abnormal. CHLORIDE (test code = 2075-0) 103 MEQ/L See_Comment [Automated messa ge] The system which generated this result transmitted reference range: 95-107 MEQ/L. The reference range was not used to interpret this result as normal/abnormal. CREATININE (test code = 2160-0) 0.98 MG/DL See_Comment [Automated messa ge] The system which generated this result transmitted reference range: 0.60-1.30 MG/DL. The reference range was not used to interpret this result as normal/abnormal. eGFR (2020 CKD-EPI) (test code = 81894-3) 73 ML/MIN/1.73 See_Comment [Automated messa ge] The system which generated this result transmitted reference range: >60 ML/MIN/1.73. The reference range was not used to interpret this result as normal/abnormal. GLUCOSE (test code = 1558-6) 100 MG/DL See_Comment H [Automated messa ge] The system which generated this result transmitted reference range: 70-99 MG/DL. The reference range was not used to interpret this result as normal/abnormal. POTASSIUM (test code = 2823-3) 4.1 MEQ/L See_Comment [Automated messa ge] The system which generated this result transmitted reference range: 3.5-5.4 MEQ/L. The reference range was not used to interpret this result as normal/abnormal. PROTEIN, TOTAL (test code = 2885-2) 7.5 G/DL See_Comment [Automated messa ge] The system which generated this result transmitted reference range: 6.1-8.3 G/DL. The reference range was not used to interpret this result as normal/abnormal. AST (test code = 1920-8) 27 U/L See_Comment [Automated messa ge] The system which generated this result transmitted reference range: 9-40 U/L. The reference range was not used to interpret this result as normal/abnormal. ALT (test code = 1742-6) 56 U/L See_Comment H [Automated messa ge] The system which generated this result transmitted reference range: 5-40 U/L. The reference range was not used to interpret this result as normal/abnormal. SODIUM (test code = 2951-2) 144 MEQ/L See_Comment [Automated messa ge] The system which generated this result transmitted reference range: 133-146 MEQ/L. The reference range was not used to interpret this result as normal/abnormal. Notes Date/Time Note Provider Source 2023-03-10 14:30:00 [id number] [id number]/ [id number]:30:00 Addended by: SYDNEE TORRES MD on: 03/17/2023 03:44 PM Modules accepted: Level of Service [id number]:44:50 Addendum [id number] AVAvailable for patient careDER-DERMATOLOGY STAFFDER-DERMATOLOGY [address] [id number] 3080 LIZA-DERMATOLOGY STAFF [facility]"
[2023-11-05 00:49] LABS: Urine Bacteria None Seen /HPF (<20); Urine Mucus Slight /HPF (None Seen); Urine RBC None Seen /HPF (None Seen)
[2023-11-05 00:55] LABS: Absolute Basophils 0.1 K/uL (0-0.5); Absolute Eosinophils 0.1 K/uL (0-0.5); Absolute Lymphocytes (CBC) 2.8 K/uL (0.7-4.9); Basophils % 0.7 % (0-1.3); Eosinophils % 0.6 % (0-4.4); Hematocrit 42.9 % (36.0-45.0); Hemoglobin 14.8 g/dL (12.0-15.0); Lymphocytes % 17.7 % (15.3-44.8); MPV 9.4 fL (7.6-11.3); Platelets 296 thou/uL (152-406); RBC Red Blood Cell Count 4.56 M/uL (3.86-4.86)
[2023-11-05 01:04] LABS: Albumin 3.4 g/dL (3.4-5.0); Albumin/Globulin Ratio 0.8 (1.1-1.8); Bilirubin Total 0.3 mg/dL (0.2-1.0); Globulin 4.1 g/dL (2.3-3.5); Protein, Total 7.5 g/dL (6.4-8.2)
--- NOTE | 2023-11-05 03:15 | ER ---
Nurse's Notes [facility] Name: Brenda Decker Age: 42 yrs Sex: Female : 1980 Arrival Date: 11/04/2023 Time: 22:58 Bed 17 Private MD: Diagnosis: Low back pain;Degenerative spinal arthritis, exacerbation of chronic back pain,, degenerative spinal disc disease Presentation: 11/03 23:12 Chief complaint: Patient states: back pain X1 week and worsening. seen by PCP. started lg3 muscle relaxer and steroids. finished steroids 2 days ago and now my back is having spasms. Coronavirus screen: Client denies travel out of the [place] in the last 14 days. At this time, the client does not indicate any symptoms associated with coronavirus-19. Ebola Screen: No symptoms or risks identified at this time. Initial Sepsis Screen: Does the patient meet any 2 criteria? No. Patient's initial sepsis screen is negative. Does the patient have a suspected source of infection? No. Patient's initial sepsis screen is negative. Risk Assessment: Do you want to hurt yourself or someone else? Patient reports no desire to harm self or others. Onset of symptoms is unknown. 23:12 Method Of Arrival: Wheelchair lg3 23:12 Acuity: BIGG 3 lg3 Triage Assessment: 23:15 General: Appears in no apparent distress. uncomfortable, Behavior is calm, cooperative. lg3 Pain: Complains of pain in back. EENT: No deficits noted. No signs and/or symptoms were reported regarding the EENT system. Neuro: No deficits noted. Zuniga Agitation-Sedation Scale (RASS): 0 - Alert and Calm Level of Consciousness is awake, alert, obeys commands, Oriented to person, place, time, situation. Cardiovascular: No deficits noted. Denies chest pain, shortness of breath, Capillary refill < 3 seconds Clubbing of nail beds is absent JVD is absent Patient's skin is warm and dry. Respiratory: No deficits noted. Airway is patent Respiratory effort is even, unlabored, Respiratory pattern is regular, symmetrical. GI: No deficits noted. No signs and/or symptoms were reported involving the gastrointestinal system. Abdomen is round non-distended. : No deficits noted. No signs and/or symptoms were reported regarding the genitourinary system. Derm: No deficits noted. No signs and/or symptoms reported regarding the dermatologic system. Skin is intact, is healthy with good turgor, Skin is dry, Skin is normal, Skin temperature is warm. Musculoskeletal: Circulation, motion, and sensation intact. Range of motion: intact in all extremities, Reports pain in back. 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 - Social history:: Smoking status: Patient reports the use of cigarette tobacco products, smokes one-half pack cigarettes per day, Patient/guardian denies using alcohol, street drugs. Screenin/13 01:02 [facility] ED Fall Risk Assessment (Adult) History of falling in the last 3 months, ha1 including since admission No falls in past 3 months (0 pts) Confusion or Disorientation No (0 pts) Intoxicated or Sedated No (0 pts) Impaired Gait No (0 pts) Mobility Assist Device Used No (0 pt) Altered Elimination No (0 pt) Score/Fall Risk Level 0 - 2 = Low Risk Oriented to surroundings, Maintained a safe environment, Hourly rounding (assess needs \T\ fall precautionary measures) done. Abuse screen: Denies threats or abuse. Denies injuries from another. Nutritional screening: No deficits noted. Tuberculosis screening: No symptoms or risk factors identified. Assessment: 00:15 General: Appears uncomfortable, Behavior is cooperative. Pain: Complains of pain in ha1 back Pain radiates to lumbar area Pain currently is 10 out of 10 on a pain scale. Neuro: Level of Consciousness is awake, alert, obeys commands, Oriented to person, place, time, situation. Cardiovascular: Capillary refill < 3 seconds Patient's skin is warm and dry. Respiratory: Airway is patent Respiratory effort is even, unlabored, Respiratory pattern is regular, symmetrical. GI: No signs and/or symptoms were reported involving the gastrointestinal system. Abdomen is round non-distended. : Reports history of kidney stones. 00:15 Derm: Skin is pink, warm \T\ dry. Musculoskeletal: Circulation, motion, and sensation ha1 intact. Range of motion: intact in all extremities, Reports pain in back. 00:15 Reassessment: patient in bed at 0015. ha1 01:03 Reassessment: going to CT. ha1 01:15 Reassessment: Patient and/or family updated on plan of care and expected duration. Pain ha1 level reassessed. Patient is alert, oriented x 3, equal unlabored respirations, skin warm/dry/pink. pain 10/10 notified care provider page. back from CT. 02:07 Reassessment: Patient and/or family updated on plan of care and expected duration. Pain ha1 level reassessed. Patient is alert, oriented x 3, equal unlabored respirations, skin warm/dry/pink. pain 5/10 Patient states feeling better. Patient states symptoms have improved. 03:10 Reassessment: Patient and/or family updated on plan of care and expected duration. Pain ha1 level reassessed. Patient is alert, oriented x 3, equal unlabored respirations, skin warm/dry/pink. pain 4/10 gets worse with activity. Patient states feeling better. Patient states symptoms have improved. Vital Signs: 11/03 23:12 BP 111 / 88; Pulse 104; Resp 17 S; Temp 97.8(TE); Pulse Ox 97% on R/A; Weight 72.57 kg lg3 (R); Height 5 ft. 5 in. (R); Pain 06/03; 11/04 00:15 BP 119 / 79; Pulse 91; Resp 17 S; Pulse Ox 98% on R/A; ha1 01:15 BP 109 / 73; Pulse 91; Resp 17 S; Pulse Ox 100% on R/A; ha1 02:08 BP 120 / 78; Pulse 92; Resp 17 S; Pulse Ox 100% on R/A; ha1 03:10 BP 107 / 73; Pulse 87; Resp 17 S; Pulse Ox 100% on R/A; ha1 0312 23:12 Body Mass Index 26.63 (72.57 kg, 165.1 cm) lg3 11/03 23:12 Pain Scale: Adult lg3 ED Course: 11/03 23:02 Patient arrived in ED. gm2 23:03 Lucian Chaudhary PA is PHCP. cp 23:03 Osmin Dior MD is Attending Physician. cp 23:15 Triage completed. lg3 23:15 Arm band placed on left wrist. lg3 03 00:15 Patient has correct armband on for positive identification. Placed in gown. Bed in low ha1 position. Call light in reach. Adult w/ patient. 00:25 Inserted saline lock: 22 gauge in right antecubital area, using aseptic technique. ha1 Blood collected. 00:29 Stella Licea, RN is Primary Nurse. ha1 00:30 CBC with Diff Sent. ha1 00:30 CMP Sent. ha1 00:30 Lipase Sent. ha1 01:19 CT Stone Protocol In Process Unspecified. EDMS 03:33 No provider procedures requiring assistance completed. IV discontinued, intact, ha1 bleeding controlled, No redness/swelling at site. Pressure dressing applied. 03:34 Provided Education on: following up with pcp. ha1 Administered Medications: 00:26 Drug: NS 0.9% IV 1000 ml IV at 1 bolus Per protocol; 1000 mL bolus Route: IV; Rate: 1 ha1 bolus; Site: right antecubital; 03:36 Follow up: Response: No adverse reaction; IV Status: Completed infusion; IV Intake: ha1 1000ml 00:28 Drug: TORadol - Ketorolac IVP 15 mg IVP once Route: IVP; Site: right antecubital; ha1 01:15 Follow up: Response: No adverse reaction; Pain is unchanged, physician notified ha1 00:28 Drug: Decadron - Dexamethasone IVP 10 mg IVP once Route: IVP; Site: right antecubital; ha1 01:15 Follow up: Response: No adverse reaction ha1 00:30 Drug: Methocarbamol IVPB 1 grams IVPB once over 1 hrs; (mix in NS 100 mL) Route: IVPB; ha1 Infused Over: 1 hrs; Site: right antecubital; 01:33 Drug: Ondansetron IVP 4 mg IVP once; over 2 minutes Route: IVP; Site: right antecubital;ha1 02:10 Follow up: Response: No adverse reaction ha1 01:35 Drug: fentaNYL (PF) IVP 50 mcg IVP once Route: IVP; Site: right antecubital; ha1 02:10 Follow up: Response: No adverse reaction; Pain is decreased; RASS: Alert and Calm (0) ha1 03:15 Drug: [place] PO 10 mg-325 mg 1 tabs PO once Route: PO; ha1 03:36 Follow up: Response: No adverse reaction; Marked relief of symptoms ha1 03:15 Drug: Methocarbamol PO 750 mg PO once Route: PO; ha1 03:35 Follow up: Response: No adverse reaction; Marked relief of symptoms ha1 03:15 Drug: Promethazine PO 25 mg PO once Route: PO; ha1 03:35 Follow up: Response: No adverse reaction; Marked relief of symptoms ha1 Medication: 01:02 VIS not applicable for this client. ha1 Intake: 03:36 IV: 1000ml; Total: 1000ml. ha1 Outcome: 03:14 Discharge ordered by . sp4 03:34 Discharged to home ambulatory, with family, ha1 03:34 Condition: stable 03:34 Discharge instructions given to patient, family, Instructed on discharge instructions, follow up and referral plans. medication usage, Demonstrated understanding of instructions, follow-up care, medications, Prescriptions given X 4, 03:37 Patient left the ED. ha1 Signatures: Dispatcher [employer] EDMS Lucian Chaudhary PA PA cp Able, Lacie RN RN lg3 Stella Licea RN RN ha1 Osmin Dior MD MD sp4 Asiya Zhou 2
--- NOTE | 2023-11-05 03:15 | EDPHYS ---
Physician Documentation [facility] Name: Brenda Decker Age: 42 yrs Sex: Female : 1980 Arrival Date: 11/04/2023 Time: 22:58 Bed 17 Private MD: ED Physician Osmin Dior HPI: 11/03 23:55 This 42 yrs old Female presents to ER via Wheelchair with complaints of Back Pain. cp 23:55 The patient presents with pain that is acute. The symptoms are located in the low back. cp Onset: The symptoms/episode began/occurred 1 week(s) ago. 23:55 Associated signs and symptoms: Pertinent positives: tingling, Pertinent negatives: cp abdominal pain, fever, incontinence, weakness. The problem was sustained when bending over, pet dog jumped on her. 23:55 Modifying factors: the patient symptoms are aggravated by any movement. 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 - Social history:: Smoking status: Patient reports the use of cigarette tobacco products, smokes one-half pack cigarettes per day, Patient/guardian denies using alcohol, street drugs. ROS: 11/04 00:00 Cardiovascular: Negative for chest pain, edema, palpitations, cp Back: Positive for pain at rest, pain with movement, of the lumbar area, 00:00 Constitutional: Negative for body aches, chills, fever, poor PO intake, cp 00:00 ENT: Negative for drainage from ear(s), ear pain, sore throat, difficulty swallowing, difficulty handling secretions, 00:00 Respiratory: Negative for cough, shortness of breath, wheezing, 00:00 Abdomen/GI: Negative for abdominal pain, nausea, vomiting, and diarrhea, constipation, black/tarry stool, rectal bleeding, bowel incontinence, 00:00 : Negative for urinary symptoms, pelvic pain, flank pain, bladder incontinence, 00:00 Neuro: Positive for tingling, of the toes of left foot and toes of right foot, Negative for altered mental status, dizziness, headache, numbness, weakness, Exam: 00:05 Constitutional: The patient appears in no acute distress, alert, awake, non-toxic, well cp developed, well nourished, uncomfortable, 00:05 Head/Face: Normocephalic, atraumatic. cp 00:05 Neck: ROM/movement: is normal, is supple, without pain, no range of motions limitations, no nuchal rigidity, 00:05 Chest/axilla: Inspection: normal, 00:05 Cardiovascular: Rate: tachycardic, Rhythm: regular, Edema: is not appreciated, JVD: is not appreciated, 00:05 Respiratory: the patient does not display signs of respiratory distress, Respirations: normal, no use of accessory muscles, no retractions, labored breathing, is not present, Breath sounds: are clear throughout, no decreased breath sounds, no stridor, no wheezing, 00:05 Abdomen/GI: Inspection: abdomen appears normal, Palpation: abdomen is soft and non-tender, in all quadrants, 00:05 Back: pain, that is moderate, of the lumbar area, ROM is painful, with all movement, Straight leg raises: of both lower extremities does not illicit pain, 00:05 Neuro: Motor: moves all fours, strength is normal, Sensation: no obvious gross deficits, Deep tendon reflexes are 2+ (normal) in the right patellar and left patellar, Vital Signs: 11/03 23:12 BP 111 / 88; Pulse 104; Resp 17 S; Temp 97.8(TE); Pulse Ox 97% on R/A; Weight 72.57 kg lg3 (R); Height 5 ft. 5 in. (R); Pain 06/03; 11/04 00:15 BP 119 / 79; Pulse 91; Resp 17 S; Pulse Ox 98% on R/A; ha1 01:15 BP 109 / 73; Pulse 91; Resp 17 S; Pulse Ox 100% on R/A; ha1 02:08 BP 120 / 78; Pulse 92; Resp 17 S; Pulse Ox 100% on R/A; ha1 03:10 BP 107 / 73; Pulse 87; Resp 17 S; Pulse Ox 100% on R/A; ha1 11/03 23:12 Body Mass Index 26.63 (72.57 kg, 165.1 cm) lg3 11/03 23:12 Pain Scale: Adult lg3 MDM: 11/03 23:19 Patient medically screened. cp 11/04 03:00 ED course: EXAM DESCRIPTION: Stone Protocol RadLex: CTABDOMEN PELVIS WITHOUT IV sp4 CONTRAST CLINICAL HISTORY: 42 years Female; low back pain; Bed Name: 17 TECHNIQUE: CT of the abdomen and pelvis without contrast. All CT scans at this facility use dose modulation, iterative reconstruction, and/or weight based dosing when appropriate to reduce radiation dose to as low as reasonably achievable. COMPARISON: None. FINDINGS: Lower thorax: Lung bases are clear Abdomen: Stomach:Within normal limits Liver:No focal lesions. No intrahepatic ductal distention. Gallbladder:Surgically absent. Pancreas:Within normal limits Spleen:Within normal limits Right kidney:No hydronephrosis. No renal or ureteral calculi. Left kidney:No hydronephrosis. No renal or ureteral calculi. Adrenal glands:Within normal limits Vascular structures:Within normal limits (although limited evaluation on noncontrast exam). Lymph nodes:No lymphadenopathy by size criteria Pelvis: Small bowel:No significant distention. Appendix:Not visualized. No pericecal inflammatory changes. Colon:No distention or acute pericolonic edema. Moderate to large stool burden. Peritoneum: No free air. No free fluid. Subtle increased attenuation in the central mesenteric fat. Bones: No acute bone findings. Bladder: Unremarkable. Reproductive organs: No acute findings. Note that evaluation of the bowel and solid organs is somewhat limited due to lack of intravenous and oral contrast. IMPRESSION: 1. No urinary tract calculi. 2. Moderate to large stool burden. 3. Subtle increased attenuation in the central mesenteric fat, can be seen in setting of mesenteric panniculitis. . 03:11 Differential diagnosis: chronic back pain, Fatigue Fracture Osteoporosis. Data sp4 reviewed: vital signs, nurses notes, lab test result(s), radiologic studies, CT scan. Consideration of Admission/Observation Escalation of care including admission/observation considered. ED course: CT reveals degenerative spinal arthritis, otherwise these unremarkable. Patient stable for discharge home with p.o. as needed tramadol , Robaxin, Phenergan, ibuprofen. . 11/03 23:27 Order name: Urine Microscopic Only; Complete Time: 01:05 11/04 01:06 Interpretation: Reviewed. 11/03 23:58 Order name: CBC with Diff; Complete Time: 01:05 11/04 01:05 Interpretation: Abnormal: WBC 15.60; NEUT A 11.4. 11/03 23:58 Order name: CMP; Complete Time: 01:05 11/04 01:05 Interpretation: Normal except: NA 135; CRE 1.13; GFR 62; ALT 59; GLOB 4.1; A/G 0.8. 11/03 23:58 Order name: Lipase; Complete Time: 01:05 11/04 01:06 Interpretation: Reviewed. 11/04 00:32 Order name: CT Stone Protocol 11/03 23:58 Order name: IV Saline Lock; Complete Time: 00:30 11/03 23:58 Order name: Labs collected and sent; Complete Time: 00:30 cp Administered Medications: 00:26 Drug: NS 0.9% IV 1000 ml IV at 1 bolus Per protocol; 1000 mL bolus Route: IV; Rate: 1 ha1 bolus; Site: right antecubital; 03:36 Follow up: Response: No adverse reaction; IV Status: Completed infusion; IV Intake: ha1 1000ml 00:28 Drug: TORadol - Ketorolac IVP 15 mg IVP once Route: IVP; Site: right antecubital; ha1 01:15 Follow up: Response: No adverse reaction; Pain is unchanged, physician notified ha1 00:28 Drug: Decadron - Dexamethasone IVP 10 mg IVP once Route: IVP; Site: right antecubital; ha1 01:15 Follow up: Response: No adverse reaction ha1 00:30 Drug: Methocarbamol IVPB 1 grams IVPB once over 1 hrs; (mix in NS 100 mL) Route: IVPB; ha1 Infused Over: 1 hrs; Site: right antecubital; 01:33 Drug: Ondansetron IVP 4 mg IVP once; over 2 minutes Route: IVP; Site: right antecubital;ha1 02:10 Follow up: Response: No adverse reaction ha1 01:35 Drug: fentaNYL (PF) IVP 50 mcg IVP once Route: IVP; Site: right antecubital; ha1 02:10 Follow up: Response: No adverse reaction; Pain is decreased; RASS: Alert and Calm (0) ha1 03:15 Drug: [place] PO 10 mg-325 mg 1 tabs PO once Route: PO; ha1 03:36 Follow up: Response: No adverse reaction; Marked relief of symptoms ha1 03:15 Drug: Methocarbamol PO 750 mg PO once Route: PO; ha1 03:35 Follow up: Response: No adverse reaction; Marked relief of symptoms ha1 03:15 Drug: Promethazine PO 25 mg PO once Route: PO; ha1 03:35 Follow up: Response: No adverse reaction; Marked relief of symptoms ha1 Disposition: 03:11 Co-signature as Attending Physician, Osmin Dior MD I agree with the assessment sp4 and plan of care. I reviewed the patient's care provided by Advanced Practice Provider \T\ agree w/ the diagnosis \T\ care plan. I personally saw the pt \T\ performed a substantive portion of the visit, incldng all aspects of the (History/Exam/Medical Decision Making). Disposition Summary: 11/05/23 03:14 Discharge Ordered Notes: Location: Home sp4 Problem: new sp4 Symptoms: have improved sp4 Condition: Stable sp4 Diagnosis - Low back pain sp4 - Degenerative spinal arthritis, exacerbation of chronic back pain,, degenerative sp4 spinal disc disease Followup: sp4 - With: Private Physician - When: 7 - 10 days - Reason: Recheck today's complaints Discharge Instructions: - Discharge Summary Sheet sp4 - Chronic Back Pain sp4 Forms: - Work release form ha1 - Patient Portal Instructions sp4 Prescriptions: - naproxen 500 mg Oral tablet - take 1 tablet ORAL route every day at bedtime; 50 tablet; Refills: 0, Product sp4 Selection Permitted - Tramadol 50 mg Oral tablet - take 1 tablet ORAL route every 8 hours as needed; 20 tablet; Refills: 0, sp4 Product Selection Permitted - promethazine 25 mg Oral tablet - take 1 tablet ORAL route every 6 hours As needed; 30 tablet; Refills: 0, sp4 Product Selection Permitted - methocarbamol 750 mg Oral tablet - take 2 tablets ORAL route 3 times per day; 60 tablet; Refills: 0, Product sp4 Selection Permitted Signatures: Dispatcher [facility] Lucian Chaudhary PA PA cp Able, Lacie, RN RN lg3 Stella Licea, RN RN ha1 sOmin Dior MD MD sp4
[2023-11-05 03:43] VITALS: TEMP 97.8
[2023-11-05 04:07] VITALS: BP 107/73; O2SAT 100
--- NOTE | 2023-11-05 18:03 | RAD REPORT ---
EXAM DESCRIPTION: Stone Protocol RadLex: CT ABDOMEN PELVIS WITHOUT IV CONTRAST CLINICAL HISTORY: 42 years Female; low back pain; Bed Name: 17 TECHNIQUE: CT of the abdomen and pelvis without contrast. All CT scans at this facility use dose modulation, iterative reconstruction, and/or weight based dosi ng when appropriate to reduce radiation dose to as low as reasonably achievable. COMPARISON: None. FINDINGS: Lower thorax: Lung bases are clear Abdomen: Stomach: Within normal limits Liver: No focal lesions. No intrahepatic ductal distention. Gallbladder: Surgically absent. Pancreas: Within normal limits Spleen: Within normal limits Right kidney: No hydronephrosis. No renal or ureteral calculi. Left kidney: No hydronephrosis. No renal or ureteral calculi. Adrenal glands: Within normal limits Vascular structures: Within normal limits (although limited evaluation on noncontrast exam). Lymph nodes: No lymphadenopathy by size criteria Pelvis: Small bowel: No significant distention. Appendix: Not visualized. No pericecal inflammatory changes. Colon: No distention or acute pericolonic edema. Moderate to large stool burden. Peritoneum: No free air. No free fluid. Subtle increased attenuation in the central mesenteric fat. Bones: No acute bone findings. Bladder: Unremarkable. Reproductive organs: No acute findings. Note that evaluation of the bowel and solid organs is somewhat limited due to lack of intravenous and oral contrast. IMPRESSION: 1. No urinary tract calculi. 2. Moderate to large stool burden. 3. Subtle increased attenuation in the central mesenteric fat, can be seen in setting of mesenteric panniculitis. Electronically signed by: Nazario Rodriguez MD 11/05/2023 02:21 AM CDT Due to temporary technical issues with the PACS/Fluency reporting system, reports are being signed by the in house radiologists without review as a courtesy to insure prompt reporting. The interpreting radiologist is fully responsible for the content of the report.
== END ==
LOC: ER 22:58
DX: M47.9 Spondylosis, unspecified (principal); M51.36 Other intervertebral disc degeneration, lumbar region; M79.7 Fibromyalgia; F17.210 Nicotine dependence, cigarettes, uncomplicated
CPT/HCPCS: 36415; 74176; 76377

== ENCOUNTER 2024-11-19 16:53 | Emergency (ER) | payer OTHER ==
--- OUTSIDE RECORDS SUMMARY | 2024-11-19 17:00 | XMS REPORT | Continuity of Care Document ---
Author Name Unknown Address [address] [place] [address] 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 Name Role Phone Sunny King Primary Care Physician [phone] Rony Dorsey Attending Clinician Unavailable Julio King Attending Clinician Unavailable Itzel Vora Attending Clinician JOHANNA Trujillo Attending Clinician JOHANA Pena Attending Clinician UnaLANDRY Holman Attending Clinician Unavailable DIANNE PADILLA Attending Clinician Unavailab [place] MD Attending Clinician SYDNEE Cannon Attending Clinician Sydnee Cannon MD Attending Clinician [phone] EMMA Attending Clinician Unavailable Doctor Unassigned, [place] Attending Clinician CHARLY Dominguez Attending Clinician Unavailable Dorothy Alegria Admitting Clinician UnavailItzel Yu Admitting Clinician Unavaila janey CARTER Admitting Clinician Unavailable Payers Payer Name Policy Type Policy Number Effective Date Expirati on Date Source [employer] MP [facility] [employer] 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 94 ON 9 [id number] 2023 00:00:00 [facility] [id number] 2023 00:00:00 Problems Condition Name Condition Details Condition Category Status Onset Date Resolution Date Last Treatment Date Treating Clinician Comments Source Abscess Abscess Problem Active 3-10 00:00: 00 [facility] Smoker Smoker Problem Active 2023-08 0-10 00:00: 00 [facility] Incomplete emptying of urinary bladder Incomplete Emptying of Urinary Bladder Problem Active 8-07 00:00: 00 [facility] Urgent desire to urinate Urgent Desire to Urinate Problem Active 7-30 00:00: 00 [facility] Atrophic vaginitis Atrophic Vaginitis Problem Active 6-14 00:00: 00 [facility] Low back pain Low Back Pain Problem Active 6-14 00:00: 00 [facility] Dysuria Dysuria Problem Active 6-14 00:00: 00 [facility] Urge incontinen ce of urine Urge Incontinen ce of Urine Problem Active 6-14 00:00: 00 [facility] Female stress incontinen ce Female Stress Incontinen ce Problem Active 6-14 00:00: 00 [facility] Pain in pelvis Pain in Pelvis Problem Active 6-14 00:00: 00 [facility] Menopausal symptom Menopausal Symptom Problem Active 6-14 00:00: 00 [facility] Anxiety Anxiety Problem Active 6-12 00:00: 00 [facility] Hyperlipid emia Hyperlipid emia Disease Active 1-24 00:00: 00 Yovana Espitia - Concepcióna surinder Heart valve disorder Heart valve disorder Disease Active 1-24 00:00: 00 Yovana Seybold - Externa l Hypertensi on Hypertensi on Disease Active 09-17 00:00: 00 Yovana Seybold - Externa l Migraine Migraine Disease Active 09-17 00:00: 00 Yovana Seybold - Externa l Thyroid disease Thyroid disease Disease Active 09-17 00:00: 00 Yovana Seybold - Externa l Bicuspid aortic valve (HHS-HCC) Bicuspid aortic valve (HHS-HCC) Disease Active 09-17 00:00: 00 Yovana ybold - Externa l Macromasti a Macromasti a Disease Active 2017-08 00:00: 00 Overview: Formattin g of this note might be different from the original. Added automatic ally from request for surgery [id number] [facility] Nasal valve blockage Nasal valve blockage Disease Active 10-17 00:00: 00 Overview: Formattin g of this note might be different from the original. Added automatic ally from request for surgery [id number] [facility] Anxiety and depression Anxiety and depression Disease Active 09-22 00:00: 00 [facility] Chronic pelvic pain in female Chronic pelvic pain in female Disease Active 2013-08 00:00: 00 [facility] Tobacco user Tobacco user Disease Active 2013-08 00:00: 00 [facility] Depression Depression Disease Active 2013-08 00:00: 00 [facility] Female genital symptoms Female genital symptoms Disease Active 05-17 00:00: 00 Overview: Formattin g of this note might be different from the original. ICD10 Diagnosis Term Setter Out Utility [facility] Endometrio sis Endometrio sis Disease Active 05-17 00:00: 00 [facility] Status post hysterecto my Status post hysterecto my Disease Active 05-17 00:00: 00 [facility] Allergic rhinitis Non-season al allergic rhinitis, unspecifie d trigger Problem [facility] [id number] Cervical pain (neck) Problem [facility] [id number] Other obesity due to excess calories Problem [facility] [id number] Intractabl e migraine without aura and without status migrainosu s Problem [facility] [id number] Acquired hypothyroi dism Problem [facility] [id number] Pain, joint, shoulder, right Problem [facility] [id number] Insomnia, unspecifie d type Problem [facility] [id number] Anxiety with depression Problem [facility] [id number] Mixed hyperlipid emia Problem [facility] [id number] Elevated hemoglobin Problem [facility] [id number] Acute pain of right shoulder Problem [facility] [id number] Cervical spondylosi s Problem [facility] [id number] Sacroiliit is Problem [facility] [id number] Fibromyalg ia Problem [facility] Chronic pain syndrome Chronic pain syndrome Problem [facility] Lumbar radiculopa thy Lumbar Radiculopa thy Problem [facility] Allergies, Adverse Reactions, Alerts Allergy Name Allergy Type Status Severity Reaction(s) Onset Date Inactive Date Treating Clinician Comments Source CONTRAST DYE DA Active U ITCHING SWELLING 2023-08 007 00:00: 00 [facility] NO KNOWN ALLERGIE S Drug Class Active [facility] Social History Social Habit Start Date Stop Date Quantity Comments Source Sexual orientation 2023-09-04 13:32:48 Heterosexual (finding) Yovana Espitia - External Gender identity [facility] History of Tobacco Use Current Smoker [facility] Sex Assigned At [facility] Alcohol intake 2023-09-17 00:00:00 2023-09-17 00:00:00 Current drinker of alcohol (finding) Yovana Espitia - External Cigarettes smoked current (pack per day) - Reported 2023-09-16 00:00:00 2023-09-16 00:00:00 Yovana Aguilar External Cigarette pack-years 2023-09-16 00:00:00 2023-09-16 00:00:00 Yovana Espitia - External Tobacco use and exposure 2023-09-16 00:00:00 2023-09-16 00:00:00 Smokeless tobacco non-user Yovana Espitia - External History of Social function 2023-09-16 00:00:00 2023-09-16 00:00:00 Yovana Espitia - External Alcohol Comment 2023-09-16 00:00:00 2023-09-16 00:00:00 socially Yovana Espitia - External Tobacco Comment 2023-03-10 00:00:00 2023-03-10 00:00:00 quit Augut 2018 [facility] Smoking Status Start Date Stop Date Source Current Smoker 2024-09-16 00:00:00 [facility] Occasional tobacco smoker 2023-09-16 00:00:00 Yovana Omkar - External Ex-smoker 2023-03-10 00:00:00 2023-03-10 00:00:00 [facility] Medications Ordered Medication Name Filled Medication Name Start Date Stop Date Current Medication? Ordering Clinician Indication Dosage Frequency Signature (SIG) Comments Components Source Methocarbam ol 750 MG Methocarbam ol 750 MG 2023-08 00:00: 00 No 1{table t} BID Methocarba mol 750 MG traMADol HCl 50 MG traMADol HCl 50 MG 2023-08 00:00: 00 No 1{table t_as_ne eded} BID traMADol HCl 50 MG methocarbam ol 750 mg tablet methocarbam ol 750 mg tablet 2023-08 00:00: 00 No methocarba mol 750 mg tablet [facility] Thyroid (SECURITY TEAM LEAD Thyroid) 15 MG oral Tablet 09-17 14:22: 53 09-17 00:00 :00 No 1{tbl} Take 1 tablet by mouth daily. Yovana cadena Semaglutide (0.25 or 0.5 mg/dose) 2 mg/3 mL SQ Solution Pen-Injecto r 09-17 14:09: 34 Yes .5mg Inject 0.5 mg into the skin once a week. Yovana cadena Metoprolol Succinate 50 MG oral Capsule ER 24 Hour Sprinkle 09-17 14:09: 34 Yes 50mg Take 50 mg by mouth daily. Yovana cadena Lidocaine Lidocaine 03-13 00:00: 00 No 5mL [facility] Kenalog (Triamcinol one) Kenalog (Triamcinol one) 0 03-13 00:00: 00 No 2mL [facility] Lidocaine Lidocaine 03-13 00:00: 00 No 5mL [facility] Kenalog (Triamcinol one) Kenalog (Triamcinol one) 0 03-13 00:00: 00 No 2mL [facility] Lidocaine Lidocaine 03-13 00:00: 00 No 5mL [facility] Kenalog (Triamcinol one) Kenalog (Triamcinol one) 03-13 00:00: 00 No 2mL [facility] Lidocaine Lidocaine 03-13 00:00: 00 No 5mL [facility] Kenalog (Triamcinol one) Kenalog (Triamcinol one) 03-13 00:00: 00 No 2mL [facility] Lidocaine Lidocaine 03-13 00:00: 00 No 5mL [facility] Kenalog (Triamcinol one) Kenalog (Triamcinol one) 03-13 00:00: 00 No 2mL [facility] Lidocaine Lidocaine 03-13 00:00: 00 No 5mL [facility] Kenalog (Triamcinol one) Kenalog (Triamcinol one) 0 03-13 00:00: 00 No 2mL [facility] Lidocaine Lidocaine 03-13 00:00: 00 No 5mL [facility] Kenalog (Triamcinol one) Kenalog (Triamcinol one) 0 03-13 00:00: 00 No 2mL [facility] Lidocaine Lidocaine 03-13 00:00: 00 No 5mL [facility] Kenalog (Triamcinol one) Kenalog (Triamcinol one) 0 03-13 00:00: 00 No 2mL [facility] Lidocaine Lidocaine 03-13 00:00: 00 No 5mL [facility] Kenalog (Triamcinol one) Kenalog (Triamcinol one) 0 03-13 00:00: 00 No 2mL [facility] Lidocaine Lidocaine 03-13 00:00: 00 No 5mL [facility] Kenalog (Triamcinol one) Kenalog (Triamcinol one) 0 03-13 00:00: 00 No 2mL [facility] Lidocaine Lidocaine 03-13 00:00: 00 No 5mL [facility] Kenalog (Triamcinol one) Kenalog (Triamcinol one) 0 03-13 00:00: 00 No 2mL [facility] Lidocaine Lidocaine 03-13 00:00: 00 No 5mL [facility] Kenalog (Triamcinol one) Kenalog (Triamcinol one) 03-13 00:00: 00 No 2mL [facility] Lidocaine Lidocaine 03-13 00:00: 00 No 5mL [facility] Kenalog (Triamcinol one) Kenalog (Triamcinol one) 0 03-13 00:00: 00 No 2mL [facility] Lidocaine Lidocaine 03-13 00:00: 00 No 5mL [facility] Kenalog (Triamcinol one) Kenalog (Triamcinol one) 0 03-13 00:00: 00 No 2mL [facility] Lidocaine Lidocaine 03-13 00:00: 00 No 5mL [facility] Kenalog (Triamcinol one) Kenalog (Triamcinol one) 0 03-13 00:00: 00 No 2mL [facility] Lidocaine Lidocaine 03-13 00:00: 00 No 5mL [facility] Kenalog (Triamcinol one) Kenalog (Triamcinol one) 0 - 00:00: 00 No 2mL [facility] Lidocaine Lidocaine 0 03-13 00:00: 00 No 5mL [facility] Kenalog (Triamcinol one) Kenalog (Triamcinol one) 0 - 00:00: 00 No 2mL [facility] Lidocaine Lidocaine 0 03-13 00:00: 00 No 5mL [facility] Kenalog (Triamcinol one) Kenalog (Triamcinol one) 0 03-13 00:00: 00 No 2mL [facility] Lidocaine Lidocaine 0 03-13 00:00: 00 No 5mL [facility] Kenalog (Triamcinol one) Kenalog (Triamcinol one) 0 03-13 00:00: 00 No 2mL [facility] Lidocaine Lidocaine 0 03-13 00:00: 00 No 5mL [facility] Kenalog (Triamcinol one) Kenalog (Triamcinol one) 0 03-13 00:00: 00 No 2mL [facility] hydrocortis one 2.5 % cream 03-10 00:00: 00 Yes [id number] Apply to area(s) 2 (two) times daily as needed for Rash. Stop when clear, restart if rash returns. [facility] Naproxen 250 MG Naproxen 250 MG 03-06 00:00: 00 No BID Naproxen 250 MG Naproxen 250 MG Naproxen 250 MG 0 03-06 00:00: 00 No BID Naproxen 250 MG Naproxen 250 MG Naproxen 250 MG 0 03-06 00:00: 00 No BID Naproxen 250 MG Naproxen 250 MG Naproxen 250 MG 0 03-06 00:00: 00 No BID Naproxen 250 MG Naproxen 250 MG Naproxen 250 MG 2022-0 03-06 00:00: 00 No BID Naproxen 250 MG Naproxen 250 MG Naproxen 250 MG 0 03-06 00:00: 00 No BID Naproxen 250 MG Naproxen 250 MG Naproxen 250 MG 0 03-06 00:00: 00 No BID Naproxen 250 MG Naproxen 250 MG Naproxen 250 MG 0 03-06 00:00: 00 No BID Naproxen 250 MG Naproxen 250 MG Naproxen 250 MG 2022-0 03-06 00:00: 00 No BID Naproxen 250 MG Naproxen 250 MG Naproxen 250 MG 0 03-06 00:00: 00 No BID Naproxen 250 MG Naproxen 250 MG Naproxen 250 MG 0 03-06 00:00: 00 No BID Naproxen 250 MG Naproxen 250 MG Naproxen 250 MG 0 03-06 00:00: 00 No BID Naproxen 250 MG Naproxen 250 MG Naproxen 250 MG 0 03-06 00:00: 00 No BID Naproxen 250 MG Naproxen 250 MG Naproxen 250 MG 0 03-06 00:00: 00 No BID Naproxen 250 MG Naproxen 250 MG Naproxen 250 MG 03-06 00:00: 00 No BID Naproxen 250 MG Naproxen 250 MG Naproxen 250 MG 0 03-06 00:00: 00 No BID Naproxen 250 MG Naproxen 250 MG Naproxen 250 MG 0 03-06 00:00: 00 No BID Naproxen 250 MG Naproxen 250 MG Naproxen 250 MG 0 03-06 00:00: 00 No BID Naproxen 250 MG Naproxen 250 MG Naproxen 250 MG 0 03-06 00:00: 00 No BID Naproxen 250 MG Naproxen 250 MG Naproxen 250 MG 0 03-06 00:00: 00 No BID Naproxen 250 MG Cephalexin 500 MG Cephalexin 500 MG 0 2- 00:00: 00 10-01 00:00 :00 No 1{capsu le} QID Cephalexin 500 MG Cephalexin 500 MG Cephalexin 500 MG 2022-0 09-26 00:00: 00 10-01 00:00 :00 No 1{capsu le} QID Cephalexin 500 MG Zolpidem Tartrate 10 MG Zolpidem Tartrate 10 MG 2021- 2- 00:00: 00 No 1{table t_at_be dtime_a s_neede d} QD Zolpidem Tartrate 10 MG Zolpidem Tartrate 10 MG Zolpidem Tartrate 10 MG 2021-1 2- 00:00: 00 No 1{table t_at_be dtime_a s_neede d} QD Zolpidem Tartrate 10 MG Zolpidem Tartrate 10 MG Zolpidem Tartrate 10 MG 2021- 2- 00:00: 00 No 1{table t_at_be dtime_a s_neede d} QD Zolpidem Tartrate 10 MG Zolpidem Tartrate 10 MG Zolpidem Tartrate 10 MG 2021-08 26- 00:00: 00 No 1{table t_at_be dtime_a s_neede d} QD Zolpidem Tartrate 10 MG Zolpidem Tartrate 10 MG Zolpidem Tartrate 10 MG 2021- 2- 00:00: 00 No 1{table t_at_be dtime_a s_neede d} QD Zolpidem Tartrate 10 MG Zolpidem Tartrate 10 MG Zolpidem Tartrate 10 MG 2021-1 2- 00:00: 00 No 1{table t_at_be dtime_a s_neede d} QD Zolpidem Tartrate 10 MG Benzonatate 200 MG Benzonatate 200 MG 2021- 2- 00:00: 00 08-24 00:00 :00 No 1{capsu le} TID Benzonatat e 200 MG Benzonatate 200 MG Benzonatate 200 MG 2021-1 2- 00:00: 00 08-24 00:00 :00 No 1{capsu le} TID Benzonatat e 200 MG Benzonatate 200 MG Benzonatate 200 MG 2021-08 2-21 00:00: 00 08-24 00:00 :00 No 1{itzu le} TID Benzonatat e 200 MG predniSONE [...] ISolone 4 MG methylPREDN ISolone 4 MG 2021-0830 00:00: 00 07-30 00:00 :00 No QD methylPRED NISolone 4 MG Azithromyci n 250 MG Azithromyci n 250 MG 2021-08 00:00: 00 07-29 00:00 :00 No QD Azithromyc in 250 MG Amoxicillin -Pot Clavulanate 875-125 MG Amoxicillin -Pot Clavulanate 875-125 MG 2021-08- 00:00: 00 07-25 00:00 :00 No 1{table [...] one) 2021-08 0 00:00: 00 No 40mg [facility] Zolpidem Tartrate 10 MG Zolpidem Tartrate 10 MG 2021-08 0 00:00: 00 No 1{table t_at_be dtime_a s_neede d} QD Zolpidem Tartrate 10 MG Kenalog (Triamcinol one) Kenalog (Triamcinol one) 2021-08 0 00:00: 00 No 40mg [facility] Zolpidem Tartrate 10 MG Zolpidem Tartrate 10 MG 2021-08 0 00:00: 00 No 1{table t_at_be dtime_a s_neede d} QD Zolpidem Tartrate 10 MG Kenalog (Triamcinol one) Kenalog (Triamcinol one) 2021-08 0 00:00: 00 No 40mg [facility] Zolpidem Tartrate 10 MG Zolpidem Tartrate 10 MG 2021-08 0 00:00: 00 No 1{table t_at_be dtime_a s_neede d} QD Zolpidem Tartrate 10 MG Kenalog (Triamcinol one) Kenalog (Triamcinol one) 2021-08 00:00: 00 No 40mg [facility] Zolpidem Tartrate 10 MG Zolpidem Tartrate 10 MG 2021-08 0 00:00: 00 No 1{table t_at_be dtime_a s_neede d} QD Zolpidem Tartrate 10 MG Kenalog (Triamcinol one) Kenalog (Triamcinol one) 2021-08 00:00: 00 No 40mg [facility] Zolpidem Tartrate 10 MG Zolpidem Tartrate 10 MG 2021-08 00:00: 00 No 1{table t_at_be dtime_a s_neede d} QD Zolpidem Tartrate 10 MG Kenalog (Triamcinol one) Kenalog (Triamcinol one) 2021-08 00:00: 00 No 40mg [facility] Kenalog (Triamcinol one) Kenalog (Triamcinol one) 2021-08 0 00:00: 00 No [facility]mg [facility] Kenalog (Triamcinol one) Kenalog (Triamcinol one) 2021-08 0 00:00: 00 No 40mg [facility] Kenalog (Triamcinol one) Kenalog (Triamcinol one) 2021-08 0 00:00: 00 No 40mg [facility] Kenalog (Triamcinol one) Kenalog (Triamcinol one) 2021-08 0 00:00: 00 No 40mg [facility] Kenalog (Triamcinol one) Kenalog (Triamcinol one) 2021-08 0 00:00: 00 No 40mg [facility] Kenalog (Triamcinol one) Kenalog (Triamcinol one) 2021-08 0 00:00: 00 No 40mg [facility] Kenalog (Triamcinol one) Kenalog (Triamcinol one) 2021-08 0- 00:00: 00 No 40mg [facility] Kenalog (Triamcinol one) Kenalog (Triamcinol one) 2021-08 0- 00:00: 00 No 40mg [facility] Kenalog (Triamcinol one) Kenalog (Triamcinol one) 2021-08 0- 00:00: 00 No 40mg [facility] Kenalog (Triamcinol one) Kenalog (Triamcinol one) 2021-08 0 00:00: 00 No 40mg [facility] Kenalog (Triamcinol one) Kenalog (Triamcinol one) 2021-08 0 00:00: 00 No 40mg [facility] Kenalog (Triamcinol one) Kenalog (Triamcinol one) 2021-08 0 00:00: 00 No 40mg [facility] Kenalog (Triamcinol one) Kenalog (Triamcinol one) 2021-08 0 00:00: 00 No 40mg [facility] Kenalog (Triamcinol one) Kenalog (Triamcinol one) 2021-08 0 00:00: 00 No 40mg [facility] Kenalog (Triamcinol one) Kenalog (Triamcinol one) 2021-08 0- 00:00: 00 No 40mg [facility] Kenalog (Triamcinol one) Kenalog (Triamcinol one) 2021-08 0- 00:00: 00 No 40mg [facility] Kenalog (Triamcinol one) Kenalog (Triamcinol one) 2021-08 0- 00:00: 00 No 40mg [facility] Kenalog (Triamcinol one) Kenalog (Triamcinol one) 2021-08 0- 00:00: 00 No 40mg [facility] Kenalog (Triamcinol one) Kenalog (Triamcinol one) 2021-08 0- 00:00: 00 No 40mg [facility] Kenalog (Triamcinol one) Kenalog (Triamcinol one) 2021-08 0- 00:00: 00 No 40mg [facility] Kenalog (Triamcinol one) Kenalog (Triamcinol one) 2021-08 0- 00:00: 00 No 40mg [facility] Kenalog (Triamcinol one) Kenalog (Triamcinol one) 2021-08 0 00:00: 00 No 40mg [facility] Kenalog (Triamcinol one) Kenalog (Triamcinol one) 2021-08 0 00:00: 00 No 40mg [facility] Kenalog (Triamcinol one) Kenalog (Triamcinol one) 2021-08 0 00:00: 00 No 40mg [facility] Kenalog (Triamcinol one) Kenalog (Triamcinol one) 2021-08 0 00:00: 00 No 40mg [facility] Kenalog (Triamcinol one) Kenalog (Triamcinol one) 2021-08 0 00:00: 00 No 40mg [facility] Zolpidem Tartrate 10 MG Zolpidem Tartrate 10 MG 04-22 00:00: 00 No 1{table t_at_be dtime_a s_neede d} QD Zolpidem Tartrate 10 MG Zolpidem Tartrate 10 MG Zolpidem Tartrate 10 MG 04-22 00:00: 00 No 1{table t_at_be dtime_a s_neede d} QD Zolpidem Tartrate 10 MG Zolpidem Tartrate 10 MG Zolpidem Tartrate 10 MG 8 00:00: 00 No 1{table t_at_be dtime_a s_neede d} QD Zolpidem Tartrate 10 MG estradiol 10 mg implant pellet Take by implantatio n route. estradiol 10 mg implant pellet Take by implantatio n route. 01-23 00:00: 00 No estradiol 10 mg implant pellet Take by implantati on route. [facility] ALPRAZolam 0.5 mg tablet 2017-08 17:05: 07 Yes .5mg Take 0.5 mg by mouth 3 (three) times daily. [facility] ALPRAZolam 0.5 mg tablet 2017-08 11:05: 07 Yes .5mg Take 0.5 mg by mouth 3 (three) times daily. [facility] bacitracin 500 unit/gram ointment 2017-08 00:00: 00 Yes Apply to affected area(s) 3 (three) times daily. Apply to open area R breast TID [facility] DULoxetine (CYMBALTA) 60 mg capsule 2017-08 19:18: 44 Yes 60mg Take 60 mg by mouth daily. [facility] DULoxetine (CYMBALTA) 60 mg capsule 2017-08 14:18: 44 Yes 60mg Take 60 mg by mouth daily. [facility] simvastatin 20 mg tablet 03-23 00:00: 00 Yes TK 1 T PO QD IN THE MELANIE [facility] FLUoxetine 20 mg tablet 04-10 00:00: 00 Yes [id number] 40mg Take 2 tablets by mouth daily. [facility] FLUoxetine 20 mg tablet 04-10 00:00: 00 Yes [id number] 40mg Take 2 tablets by mouth daily. [facility] doxepin 10 mg capsule 02-05 00:00: 00 Yes [id number] 10mg Take 1 capsule by mouth at bedtime. [facility] ondansetron (ZOFRAN, HYDROCHLORI DE,) 8 mg tablet 09-26 00:00: 00 Yes 8mg Take 1 tablet by mouth every 8 (eight) hours as needed for Nausea and Vomiting (N/V). [facility] traMADol HCl 50 MG traMADol HCl 50 [...] 20mg No QD atorvastat in 20mg SUMAtriptan Succinate 50 MG SUMAtriptan Succinate 50 [...] 20mg No QD atorvastat in 20mg SUMAtriptan Succinate 50 MG SUMAtriptan Succinate 50 [...] 20mg No QD atorvastat in 20mg SUMAtriptan Succinate 50 MG SUMAtriptan Succinate 50 [...] 20mg No QD atorvastat in 20mg SUMAtriptan Succinate 50 MG SUMAtriptan Succinate 50 [...] 20mg No QD atorvastat in 20mg SUMAtriptan Succinate 50 MG SUMAtriptan Succinate 50 [...] 20mg No QD atorvastat in 20mg SUMAtriptan Succinate 50 MG SUMAtriptan Succinate 50 [...] 20mg No QD atorvastat in 20mg SUMAtriptan Succinate 50 MG SUMAtriptan Succinate 50 [...] 20mg No QD atorvastat in 20mg SUMAtriptan Succinate 50 MG SUMAtriptan Succinate 50 [...] 20mg No QD atorvastat in 20mg SUMAtriptan Succinate 50 MG SUMAtriptan Succinate 50 [...] 20mg No QD atorvastat in 20mg SUMAtriptan Succinate 50 MG SUMAtriptan Succinate 50 [...] 20mg No QD atorvastat in 20mg SUMAtriptan Succinate 50 MG SUMAtriptan Succinate 50 [...] 20mg No QD atorvastat in 20mg SUMAtriptan Succinate 50 MG SUMAtriptan Succinate 50 [...] 20mg No QD atorvastat in 20mg SUMAtriptan Succinate 50 MG SUMAtriptan Succinate 50 MG No SUMAtripta n Succinate 50 MG Imitrex 50 MG Imitrex 50 MG No Imitrex 50 MG tramadol 50 mg tablet tramadol 50 mg tablet No tramadol 50 mg tablet [facility] Bactrim DS 800 mg-160 mg tablet Take 1 tablet twice a day by oral route for 7 days. Bactrim DS 800 mg-160 mg tablet Take 1 tablet twice a day by oral route for 7 days. No 1 BID Bactrim DS 800 mg-160 mg tablet Take 1 tablet twice a day by oral route for 7 days. [facility] gabapentin 300 mg capsule gabapentin 300 mg capsule No gabapentin 300 mg capsule [facility] montelukast 10 mg tablet montelukast 10 mg tablet No montelukas t 10 mg tablet [facility] sumatriptan 50 mg tablet sumatriptan 50 mg tablet No sumatripta n 50 mg tablet [facility] zolpidem 10 mg tablet zolpidem 10 mg tablet No zolpidem 10 mg tablet [facility] fluticasone propionate 50 mcg/actuati on nasal spray,suspe nsion fluticasone propionate 50 mcg/actuati on nasal spray,suspe nsion No fluticason e propionate 50 mcg/actuat ion nasal spray,susp ension [facility] atorvastati n 20 mg tablet atorvastati n 20 mg tablet No atorvastat in 20 mg tablet [facility] fluoxetine 40 mg capsule fluoxetine 40 mg capsule No fluoxetine 40 mg capsule [facility] SECURITY TEAM LEAD Thyroid 30 mg tablet SECURITY TEAM LEAD Thyroid 30 mg tablet No SECURITY TEAM LEAD Thyroid 30 mg tablet [facility] Spironolact one 100 MG Spironolact one 100 MG No Spironolac tone 100 MG Zolpidem Tartrate 10 MG Zolpidem Tartrate 10 MG No Zolpidem Tartrate 10 MG Metoprolol Succinate ER 50 MG Metoprolol Succinate ER 50 MG No Metoprolol Succinate ER 50 MG No known medications No Un alesha ity [facility] FLUoxetine HCl 40 MG FLUoxetine HCl 40 MG No FLUoxetine HCl 40 MG No known medications No Un alesha ity [facility] Atorvastati n Calcium 20 MG Atorvastati n Calcium 20 MG No Atorvastat in Calcium 20 MG SUMAtriptan Succinate 50 MG SUMAtriptan Succinate 50 MG No SUMAtripta n Succinate 50 MG SECURITY TEAM LEAD Thyroid 15 MG SECURITY TEAM LEAD Thyroid 15 MG No SECURITY TEAM LEAD Thyroid 15 MG Montelukast Sodium 10 MG Montelukast Sodium 10 MG No Montelukas t Sodium 10 MG Semaglutide -Weight Management 1 MG/0.5ML Semaglutide -Weight Management 1 MG/0.5ML No .5{ml} Semaglutid e-Weight Management 1 MG/0.5ML Levothyroxi ne Sodium 25 MCG Levothyroxi ne Sodium 25 MCG No Levothyrox ine Sodium 25 MCG Gabapentin 300 MG Gabapentin 300 MG No Gabapentin 300 MG SUMAtriptan 5 MG/ACT SUMAtriptan 5 MG/ACT No QD SUMAtripta n 5 MG/ACT Ibuprofen Ibuprofen No Ibuprofen Imitrex 50 MG Imitrex 50 MG No Imitrex 50 MG FLUoxetine HCl 20 MG FLUoxetine HCl 20 MG No 1{capsu le} QD FLUoxetine HCl 20 MG Triamterene -HCTZ 37.5-25 MG Triamterene -HCTZ [...] 50 MG Diclofenac Diclofenac No Diclofenac Gabapentin 300 MG [...] MG/ACT No QD SUMAtripta n 5 MG/ACT Imitrex 50 MG Imitrex 50 MG No Imitrex 50 MG FLUoxetine HCl 20 MG FLUoxetine HCl 20 MG No 1{capsu le} QD FLUoxetine HCl 20 MG Triamterene -HCTZ 37.5-25 MG Triamterene -HCTZ [...] n 20mg No QD atorvastat in 20mg Thyroid 60 MG Thyroid 60 MG No [...] t_as_ne eded} QD traMADol HCl 50 MG Triamterene -HCTZ 37.5-25 MG Triamterene [...] t_as_ne eded} QD traMADol HCl 50 MG Triamterene -HCTZ 37.5-25 MG Triamterene [...] t_as_ne eded} QD traMADol HCl 50 MG Metoprolol Succinate ER 50 MG [...] Gabapentin 300 MG Diclofenac Diclofenac No Diclofenac traMADol HCl 50 MG traMADol HCl 50 MG No 1{table t_as_ne eded} QD traMADol HCl 50 MG FLUoxetine HCl 20 MG FLUoxetine HCl 20 MG No 1{capsu le} QD FLUoxetine HCl 20 MG FLUoxetine HCl 20 MG FLUoxetine HCl 20 MG No 1{capsu le} QD FLUoxetine HCl 20 MG Triamterene -HCTZ 37.5-25 MG Triamterene -HCTZ 37.5-25 MG No 1{table t_in_ e_morni ng} QD Triamteren e-HCTZ 37.5-25 MG Gabapentin Gabapentin No Gabapentin Triamterene -HCTZ [...] t_as_ne eded} QD traMADol HCl 50 MG Triamterene -HCTZ 37.5-25 MG Triamterene [...] HCl 10 MG Gabapentin Gabapentin No Gabapentin Triamterene -HCTZ [...] ER 50 MG Ibuprofen Ibuprofen No Ibuprofen Triamterene -HCTZ 37.5-25 MG Triamterene -HCTZ 37.5-25 [...] ER 50 MG Ibuprofen Ibuprofen No Ibuprofen Triamterene -HCTZ 37.5-25 MG Triamterene -HCTZ 37.5-25 [...] 20mg No QD atorvastat in 20mg SUMAtriptan Succinate 50 MG SUMAtriptan Succinate 50 [...] 20mg No QD atorvastat in 20mg SUMAtriptan Succinate 50 MG SUMAtriptan Succinate 50 [...] 20mg No QD atorvastat in 20mg SUMAtriptan Succinate 50 MG SUMAtriptan Succinate 50 [...] MG Triamterene -HCTZ 37.5-25 MG No 1{table t_in e_morni ng} QD Triamteren e-HCTZ 37.5-25 MG [...] 20mg No QD atorvastat in 20mg SUMAtriptan Succinate 50 MG SUMAtriptan Succinate 50 [...] MG Triamterene -HCTZ 37.5-25 MG No 1{table t_in e_morni ng} QD Triamteren e-HCTZ 37.5-25 MG [...] 20mg No QD atorvastat in 20mg SUMAtriptan Succinate 50 MG SUMAtriptan Succinate 50 [...] 20mg No QD atorvastat in 20mg SUMAtriptan Succinate 50 MG SUMAtriptan Succinate 50 [...] 20mg No QD atorvastat in 20mg SUMAtriptan Succinate 50 MG SUMAtriptan Succinate 50 MG No SUMAtripta n Succinate 50 MG Imitrex 50 MG Imitrex 50 MG No Imitrex 50 MG Gabapentin 300 MG Gabapentin 300 MG No 1{capsu le} QD Gabapentin 300 MG Amitriptyli ne HCl 10 MG Amitriptyli ne HCl 10 MG No 1{table t_at_be dtime} QD Amitriptyl ine HCl 10 MG Immunizations Ordered Immunization Name Filled Immunization Name Date Status Comments Source SARS-COV-2 COVID-19 PFIZER VACCINE 2020-12-06 00:00:00 Completed [facility] SARS-COV-2 COVID-19 PFIZER VACCINE 2020-12-06 00:00:00 Completed [facility] SARS-COV-2 COVID-19 PFIZER VACCINE 2020-11-16 00:00:00 Completed [facility] SARS-COV-2 COVID-19 PFIZER VACCINE 2020-11-16 00:00:00 Completed [facility] COVID-19 Bivalent vaccine PFIZER 12+ Unknown Completed [facility]ov[facility] ybarra - External COVID-19 VACCINE PFIZER 12+ (Guan cap) Unknown Completed Yovana Espitia - External Vital Signs Vital Name Observation Time Observation Value Comments S ource BP Diastolic 2024-10-05 00:00:00 94 mm[Hg] [facility] BP Systolic 2024-10-05 00:00:00 121 mm[Hg] [facility] Body Weight 2024-10-05 00:00:00 153 [lb_av] [facility] BMI (Body Mass Index) 2024-10-05 00:00:00 25.5 kg/m2 [facility] Height 2024-10-05 00:00:00 65 [in_i] [facility] height 2024-07-07 15:15:00 65 [in_i] [facility] 2024-07-07 15:15:00 68.04 kg [facility] bmi 2024-07-07 15:15:00 24.96 kg/m2 [facility] heart rate 2024-07-07 15:15:00 77 /min [facility] blood pressure systolic 2024-07-07 15:15:00 121 mm[Hg] [facility] blood pressure diastolic 2024-07-07 15:15:00 76 mm[Hg] [facility] Body Weight 2024-06-14 00:00:00 154 [lb_av] [facility] Height 2024-06-14 00:00:00 65 [in_i] [facility] BMI (Body Mass Index) 2024-06-14 00:00:00 25.6 kg/m2 [facility] Height 2024-06-11 00:00:00 65 [in_i] [facility] BMI (Body Mass Index) 2024-06-11 00:00:00 25.6 kg/m2 [facility] Weight 2024-06-11 00:00:00 154 [lb_av] [facility] Height 2024-06-09 00:00:00 65 [in_i] [facility] Height 2024-06-03 00:00:00 65 [in_i] [facility] Weight 2024-06-03 00:00:00 154 [lb_av] [facility] BP Diastolic 2024-06-03 00:00:00 79 mm[Hg] [facility] BMI (Body Mass Index) 2024-06-03 00:00:00 25.6 kg/m2 [facility] BP Systolic 2024-06-03 00:00:00 119 mm[Hg] [facility] BP Systolic 2024-05-12 00:00:00 117 mm[Hg] [facility] Weight 2024-05-12 00:00:00 154 [lb_av] [facility] BP Diastolic 2024-05-12 00:00:00 78 mm[Hg] [facility] Height 2024-05-12 00:00:00 65 [in_i] [facility] BMI (Body Mass Index) 2024-05-12 00:00:00 25.6 kg/m2 [facility] Height 2024-05-04 00:00:00 65 [in_i] [facility] BP Systolic 2024-05-04 00:00:00 118 mm[Hg] [facility] BP Diastolic 2024-05-04 00:00:00 77 mm[Hg] [facility] Body Weight 2024-05-04 00:00:00 154 [lb_av] [facility] BMI (Body Mass Index) 2024-05-04 00:00:00 25.6 kg/m2 [facility] BMI (Body Mass Index) 2024-03-23 00:00:00 25.6 kg/m2 [facility] BP Diastolic 2024-03-23 00:00:00 81 mm[Hg] [facility] Body Weight 2024-03-23 00:00:00 154 [lb_av] [facility] Height 2024-03-23 00:00:00 65 [in_i] [facility] BP Systolic 2024-03-23 00:00:00 116 mm[Hg] [facility] height 2024-03-10 13:30:00 65 [in_i] [facility] weight-kg 2024-03-10 13:30:00 68.95 kg [facility] bmi 2024-03-10 13:30:00 25.29 kg/m2 [facility] heart rate 2024-03-10 13:30:00 74 /min [facility] blood pressure systolic 2024-03-10 13:30:00 116 mm[Hg] [facility] blood pressure diastolic 2024-03-10 13:30:00 75 mm[Hg] [facility] BP Systolic 2024-02-04 00:00:00 121 mm[Hg] [facility] Height 2024-02-04 00:00:00 65 [in_i] [facility] BP Diastolic 2024-02-04 00:00:00 79 mm[Hg] [facility] BMI (Body Mass Index) 2024-02-04 00:00:00 25.6 kg/m2 [facility] Weight 2024-02-04 00:00:00 154 [lb_av] [facility] Systolic blood pressure 2023-09-17 20:07:00 126 mm[Hg] [...] Pulse oximetry 2023-09-17 20:07:00 99 /min [facility] - External height 2023-05-23 10:40:00 66 [in_i] Commo n [facility] weight 2023-05-23 10:40:00 178 [lb_av] Comm on [facility] bmi 2023-05-23 10:40:00 28.73 kg/m2 Comm on [facility] blood pressure systolic 2023-05-23 10:40:00 125 mm[Hg] [facility] blood pressure diastolic 2023-05-23 10:40:00 75 mm[Hg] [facility] height 2023-03-13 08:30:00 66 [in_i] Commo n [facility] weight 2023-03-13 08:30:00 178.2 [lb_av] Co mmon [facility] temperature 2023-03-13 08:30:00 98.1 [degF] Com mon [facility] bmi 2023-03-13 08:30:00 28.76 kg/m2 Comm on [facility] blood pressure systolic 2023-03-13 08:30:00 124 mm[Hg] [facility] blood pressure diastolic 2023-03-13 08:30:00 80 mm[Hg] [facility] height 2023-03-06 13:40:00 66 [in_i] Commo n [facility] weight 2023-03-06 13:40:00 176 [lb_av] Comm on [facility] temperature 2023-03-06 13:40:00 97.7 [degF] Com mon [facility] bmi 2023-03-06 13:40:00 28.4 kg/m2 Commo n [facility] oximetry 2023-03-06 13:40:00 98 % Commo n [facility] respiratory rate 2023-03-06 13:40:00 18 /min Common [facility] blood pressure systolic 2023-03-06 13:40:00 124 mm[Hg] [facility] blood pressure diastolic 2023-03-06 13:40:00 81 mm[Hg] [facility] height 2023-02-11 11:40:00 66 [in_i] Commo n [facility] weight 2023-02-11 11:40:00 175 [lb_av] Comm on [facility] bmi 2023-02-11 11:40:00 28.24 kg/m2 Comm on [facility] blood pressure systolic 2023-02-11 11:40:00 128 mm[Hg] Common [facility] blood pressure diastolic 2023-02-11 11:40:00 74 mm[Hg] [facility] height 2022-11-14 08:00:00 66 [in_i] Commo n [facility] weight 2022-11-14 08:00:00 176.0 [lb_av] Co mmon [facility] temperature 2022-11-14 08:00:00 97.4 [degF] Com mon [facility] bmi 2022-11-14 08:00:00 28.4 kg/m2 Commo n [facility] oximetry 2022-11-14 08:00:00 97 % Commo n [facility] respiratory rate 2022-11-14 08:00:00 17 /min Common [facility] blood pressure systolic 2022-11-14 08:00:00 115 mm[Hg] [facility] blood pressure diastolic 2022-11-14 08:00:00 76 mm[Hg] [facility] height 2022-11-11 11:20:00 66 [in_i] Commo n [facility] weight 2022-11-11 11:20:00 176 [lb_av] Comm on [facility] bmi 2022-11-11 11:20:00 28.4 kg/m2 Commo n [facility] blood pressure systolic 2022-11-11 11:20:00 125 mm[Hg] [facility] blood pressure diastolic 2022-11-11 11:20:00 74 mm[Hg] [facility] height 2022-09-26 11:50:00 66 [in_i] Commo n [facility] weight 2022-09-26 11:50:00 176 [lb_av] Comm on [facility] bmi 2022-09-26 11:50:00 28.4 kg/m2 Commo n [facility] height 2022-08-14 09:20:00 66 [in_i] Commo n [facility] weight 2022-08-14 09:20:00 176 [lb_av] Comm on [facility] temperature 2022-08-14 09:20:00 98 [degF] Comm on [facility] bmi 2022-08-14 09:20:00 28.4 kg/m2 Commo n [facility] blood pressure systolic 2022-08-14 09:20:00 121 mm[Hg] [facility] blood pressure diastolic 2022-08-14 09:20:00 76 mm[Hg] Common [facility] height 2022-08-13 14:40:00 66 [in_i] Commo n [facility] weight 2022-08-13 14:40:00 175 [lb_av] Comm on [facility] bmi 2022-08-13 14:40:00 28.24 kg/m2 Comm on [facility] height 2022-07-24 14:40:00 66 [in_i] Commo n [facility] weight 2022-07-24 14:40:00 176.0 [lb_av] Co mmon [facility] temperature 2022-07-24 14:40:00 97.5 [degF] Com mon [facility] bmi 2022-07-24 14:40:00 28.4 kg/m2 Commo n [facility] oximetry 2022-07-24 14:40:00 96 % Commo n [facility] respiratory rate 2022-07-24 14:40:00 17 /min Common [facility] blood pressure systolic 2022-07-24 14:40:00 114 mm[Hg] Common [facility] blood pressure diastolic 2022-07-24 14:40:00 81 mm[Hg] Common [facility] height 2022-07-15 09:20:00 66 [in_i] Commo n [facility] weight 2022-07-15 09:20:00 179 [lb_av] Comm on [facility] temperature 2022-07-15 09:20:00 98 [degF] Comm on [facility] bmi 2022-07-15 09:20:00 28.89 kg/m2 Comm on [facility] height 2022-06-24 11:00:00 66 [in_i] Commo n [facility] weight 2022-06-24 11:00:00 178.9 [lb_av] Co mmon [facility] temperature 2022-06-24 11:00:00 97.9 [degF] Com [facility] bmi 2022-06-24 11:00:00 28.87 kg/m2 Comm on [facility] oximetry 2022-06-24 11:00:00 97 % Commo n [facility] respiratory rate 2022-06-24 11:00:00 18 /min [facility] blood pressure systolic 2022-06-24 11:00:00 121 mm[Hg] [facility] blood pressure diastolic 2022-06-24 11:00:00 64 mm[Hg] Common [facility] height 2022-04-22 13:50:00 66 [in_i] Commo n [facility] weight 2022-04-22 13:50:00 178 [lb_av] Comm on [facility] temperature 2022-04-22 13:50:00 97.6 [degF] Com [facility] bmi 2022-04-22 13:50:00 28.73 kg/m2 Comm on [facility] oximetry 2022-04-22 13:50:00 95 % Commo n [facility] respiratory rate 2022-04-22 13:50:00 16 /min [facility] blood pressure systolic 2022-04-22 13:50:00 121 mm[Hg] [facility] blood pressure diastolic 2022-04-22 13:50:00 79 mm[Hg] [facility] height 2022-03-29 14:00:00 65 [in_i] Commo n [facility] weight 2022-03-29 14:00:00 176.1 [lb_av] Co mmon [facility] temperature 2022-03-29 14:00:00 97.9 [degF] Com mon [facility] bmi 2022-03-29 14:00:00 29.3 kg/m2 Commo n [facility] oximetry 2022-03-29 14:00:00 95 % Commo n [facility] respiratory rate 2022-03-29 14:00:00 17 /min [facility] blood pressure systolic 2022-03-29 14:00:00 115 mm[Hg] [facility] blood pressure diastolic 2022-03-29 14:00:00 73 mm[Hg] [facility] Procedures Procedure Date / Time Performed Performing Clinician Source Bladder Surgery 2024-06-07 00:00:00 [facility], abdomen + pelvis, w/wo contrast 2024-03-08 00:00:00 [facility] MRI, pelvis, w/wo contrast 2024-02-25 00:00:00 [facility] US TRANSVAGINAL 2024-02-06 00:00:00 [facility] MRI, abdomen + pelvis, w/wo contrast 2024-02-04 00:00:00 [facility] Breast Reduction 2021-08-25 00:00:00 [facility] REFERRAL- REQUEST/RESPONSE 2021-05-23 05:01:00 Dawood cabrera Unassigned, [place] [facility] Cholecystectomy (Gallbladder) 2019-08-25 [facility]CONSULTS 2019-03-19 05:01:00 Doc tor Unassigned, [place] [facility] REFERRAL- REQUEST/RESPONSE 2016 05:01:00 D octor Unassigned, [place] [facility] BCPC - PRESCRIPTION / ORDER 2015-05-25 05:01:00 Doctor Unassigned, [place] [facility] REFERRAL- REQUEST/RESPONSE 2015-04-20 05:01:00 D octor Unassigned, [place] [facility] PATIENT QUESTIONNAIRE 2014-07-14 06:01:00 Doctor Unassigned, [place] [facility] - PRESCRIPTION / ORDER 2014-07-04 06:01:00 Doctor Unassigned, [place] [facility] Hysterectomy 2009-08-25 00:00:00 Mimi Rodrigues edical Encounters Start Date/Time End Date/Time Encounter Type Admission Type [facility]ending [facility] Care Department Encounter ID Source 2024-02-20 14:02:00 Outpatient Dorsey, Rony CLS [facility] [id number] [facility] 2023-03-13 14:11:01 Outpatient King, [facility] [id number] [facility] 2023-03-05 16:10:01 Outpatient King, [facility] [id number] [facility] 2022-08-12 09:24:03 Outpatient King, [facility] [id number] [facility] 2022-07-15 09:15:03 Outpatient King, [facility] [id number] [facility] 2022-06-20 09:37:04 Outpatient King, [facility] [id number] [facility] 2022-04-22 13:40:01 Outpatient King, [facility] [id number] [facility] 2022-03-29 13:14:01 Outpatient King, [facility] [id number] [facility] 2022-03-27 13:34:02 [facility] [id number] [facility] 2022-03-19 10:01:02 Outpatient [facility] [id number] [facility] 2022-01-02 10:42:05 Outpatient [facility] [id number] [facility] 2024-10-05 00:00:00 2024-10-05 00:00:00 Itzel Vora MD: [address], [place] [address] , Ph. [facility] - GC_GCBZW_[facility]* [id number] [facility] 2024-07-19 00:00:00 2024-07-19 00:00:00 (TEL) CLS CLS [id number] [facility] 2024-07-07 00:00:00 2024-07-07 00:00:00 Office Visit- Est Pt.- Level 4 CLS CLS [id number] [facility] 2024-06-14 00:00:00 2024-06-14 00:00:00 ASIA GoP: [address], [place] [address] , Ph. [facility] - [facility]* [id number] [facility] 2024-06-11 00:00:00 2024-06-11 00:00:00 AMA Jurado: [address], [place] [address] , Ph. [facility] - [facility]* [id number] [facility] 2024-06-09 00:00:00 2024-06-09 00:00:00 Itzel Vora MD: [address], [place] [address] , Ph. [facility] - GC_GCBZW_[place] kylie Star* [id number] [facility] 2024-06-08 00:00:00 2024-06-08 00:00:00 Itzel Vora MD: [address], [place] [id number] , Ph. [facility] - [facility]BZ[facility]* [id number] [facility] 2024-06-07 10:37:00 2024-06-07 10:37:00 Outpatient Itzel Rodríguez HCAPM TOMER [id number] [facility] 2024-06-07 10:37:00 2024-06-07 10:37:00 Outpatient KRISTOPHER MijaresjinnyItzel silva HCAPM TOMER [id number] [facility] 2024-06-03 00:00:00 2024-06-03 00:00:00 UMAIR Go: [address], [place] [id number] , Ph. [facility] - [facility]GCBZW_[place]* [id number] [facility] 2024-05-12 00:00:00 2024-05-12 00:00:00 AMA Jurado: [address], [place] [address] , Ph. [facility] - GC_GCBZW_[place] kylie [place]* [id number] [facility] 2024-05-04 00:00:00 2024-05-04 00:00:00 Itzel Vora MD: [address], [place] [address] , Ph. [facility] - [facility]* [id number] [facility] 2024-03-31 00:00:00 2024-03-31 00:00:00 Itzel Vora MD: [address], [place] [address] , Ph. [facility] - [facility]* [id number] [facility] 2024-03-23 00:00:00 2024-03-23 00:00:00 Itzel Vora MD: [address], [place] [phone] , Ph. [facility] - [facility]* [id number] [facility] 2024-03-10 00:00:00 2024-03-10 00:00:00 Office Visit- Est Pt.- Level 4 CLS CLS [id number] [facility] 2024-02-20 00:00:00 2024-02-20 00:00:00 (Pain Mgmt) Pain Mgmt Procedures CLS CLS [id number] [facility] 2024-02-17 00:00:00 2024-02-17 00:00:00 AMA Jurado: [address], [place] [address] , Ph. [facility] - [facility]* [id number] [facility] 2024-02-06 00:00:00 2024-02-06 00:00:00 Itzel Vora MD: [address], [place] [address] , Ph. [facility] - [facility]* [id number] [facility] 2024-02-05 00:00:00 2024-02-05 00:00:00 Itzel Vora MD: [address], [place] [address] , Ph. [facility] - GC_GCBZW_[place]* [id number] [facility] 2024-02-04 00:00:00 2024-02-04 00:00:00 Itzel Vora MD: [address] [place] [address], [place] [address] , Ph. [facility] - GC_GCBZW_Elizabeth [facility]* [id number] [facility] 2023-11-26 00:00:00 2023-11-26 00:00:00 Outpatient JOHANNA LEE [id number] [place] [facility] 13:45:00 2023-10-27 13:45:00 Outpatient [facility] DIETZ [id number] [facility] 2023-10-16 10:40:00 2023-10-16 10:40:00 Outpatient LANDRY ENCINAS [id number] [facility] 2023-10-03 09:00:00 2023-10-03 09:00:00 Outpatient DIANNE PADILLA [id number] [facility] 2023-09-24 00:00:00 2023-09-24 00:00:00 Outpatient JOHANNA LEE [id number] [facility] 2023-09-17 14:15:00 2023-09-17 14:15:00 [address] LEE [id number] [facility] 2023-09-04 00:00:00 2023-09-04 00:00:00 Outpatient MD YOVANA MERLOS [id number] [facility] 2023-09-04 00:00:00 2023-09-04 00:00:00 Outpatient MD YOVANA MERLOS [id number] [facility] 2023-05-23 00:00:00 2023-05-23 00:00:00 OFFICE VISIT ESTAB PT LEVEL 4 STLMLC STLMLC [id number] [facility] 2023-03-25 00:00:00 2023-03-25 00:00:00 (WEB) STLMLC STLMLC [id number] [facility] 2023-03-25 00:00:00 2023-03-25 00:00:00 (WEB) STLMLC STLMLC [id number] [facility] 2023-03-21 00:00:00 2023-03-21 00:00:00 (TEL) STLMLC STLMLC [id number] [facility] 2023-03-19 00:00:00 2023-03-19 00:00:00 (TEL) STLMLC STLMLC [id number] [facility] 2023-03-13 00:00:00 2023-03-13 00:00:00 OFFICE VISIT ESTAB PT LEVEL 3 STLMLC STLMLC [id number] [facility] 2023-03-10 14:30:00 2023-03-10 14:41:01 Outpatient R SYDNEE TORRES [facility] [id number] [facility] 2023-03-10 14:30:00 2023-03-10 14:41:01 Office Visit Sydnee Torres [facility] 1.2.840.114 350.1.13.10 4.2.7.2.686 [id number] [facility] 2023-03-06 00:00:00 2023-03-06 00:00:00 OFFICE VISIT ESTAB PT LEVEL 3 STLMLC STLMLC [id number] [facility] 2023-03-05 00:00:00 2023-03-05 00:00:00 (WEB) STLMLC STLMLC [id number] [facility] 2023-02-24 00:00:00 2023-02-24 00:00:00 (TEL) STLMLC STLMLC [id number] [facility] 2023-02-24 00:00:00 2023-02-24 00:00:00 (WEB) STLMLC STLMLC [id number] [facility] 2023-02-11 00:00:00 2023-02-11 00:00:00 OFFICE VISIT ESTAB PT LEVEL 4 STLMLC STLMLC [id number] [facility] 2023-02-11 00:00:00 2023-02-11 00:00:00 (WEB) STLMLC STLMLC [id number] [facility] 2022-12-23 00:00:00 2022-12-23 00:00:00 (TEL) STLMLC STLMLC [id number] [facility] 2022-12-16 00:00:00 2022-12-16 00:00:00 (TEL) STLMLC STLMLC [id number] [facility] 2022-12-10 00:00:00 2022-12-10 00:00:00 (TEL) STLMLC STLMLC [id number] [facility] 2022-11-20 00:00:00 2022-11-20 00:00:00 (WEB) STLMLC STLMLC [id number] [facility] 2022-11-18 00:00:00 2022-11-18 00:00:00 (TEL) STLMLC STLMLC [id number] [facility] 2022-11-14 00:00:00 2022-11-14 00:00:00 OFFICE VISIT ESTAB PT LEVEL 3 STLMLC STLMLC [id number] [facility] 2022-11-11 00:00:00 2022-11-11 00:00:00 OFFICE VISIT ESTAB PT LEVEL 4 STLMLC STLMLC [id number] [facility] 2022-11-11 00:00:00 2022-11-11 00:00:00 (TEL) STLMLC STLMLC [id number] [facility] 2022-09-26 00:00:00 2022-09-26 00:00:00 (WEB) STLMLC STLMLC [id number] [facility] 2022-09-26 00:00:00 2022-09-26 00:00:00 OFFICE VISIT ESTAB PT LEVEL 3 STLMLC STLMLC [id number] [facility] 2022-08-23 00:00:00 2022-08-23 00:00:00 (TEL) STLMLC STLMLC [id number] [facility] 2022-08-14 00:00:00 2022-08-14 00:00:00 OFFICE VISIT ESTAB PT LEVEL 4 STLMLC STLMLC [id number] [facility] 2022-08-14 00:00:00 2022-08-14 00:00:00 (TEL) STLMLC STLMLC [id number] [facility] 2022-08-13 00:00:00 2022-08-13 00:00:00 OFFICE VISIT EST PT LEVEL 3 STLMLC STLMLC [id number] [facility] 2022-08-11 00:00:00 2022-08-11 00:00:00 (WEB) STLMLC STLMLC [id number] [facility] 2022-07-24 00:00:00 2022-07-24 00:00:00 (TEL) STLMLC STLMLC [id number] [facility] 2022-07-24 00:00:00 2022-07-24 00:00:00 OFFICE VISIT EST PT LEVEL 3 STLMLC STLMLC [id number] [facility] 2022-07-15 00:00:00 2022-07-15 00:00:00 OFFICE VISIT EST PT LEVEL 3 STLMLC STLMLC [id number] [facility] 2022-07-15 00:00:00 2022-07-15 00:00:00 (TEL) STLMLC STLMLC [id number] [facility] 2022-06-24 00:00:00 2022-06-24 00:00:00 OFFICE VISIT ESTAB PT LEVEL 4 STLMLC STLMLC [id number] [facility] 2022-05-31 00:00:00 2022-05-31 00:00:00 (WEB) STLMLC STLMLC [id number] [facility] 2022-04-22 00:00:00 2022-04-22 00:00:00 OFFICE VISIT ESTAB PT LEVEL 4 STLMLC STLMLC [id number] [facility] 2022-04-22 00:00:00 2022-04-22 00:00:00 (TEL) STLMLC STLMLC [id number] [facility] 2022-03-29 00:00:00 2022-03-29 00:00:00 OFFICE VISIT NEW PT LEVEL 4 STLMLC STLMLC [id number] [facility] 2022-03-06 02:45:00 2022-03-06 02:45:00 Outpatient [facility] [id number] 2021-05-23 00:00:00 2021-05-23 00:00:00 Orders Only Doctor Unassigned, [place] [facility] 1.2.840.114 350.1.13.10 4.2.7.2.686 [id number] [id number] [facility] 2020-12-07 12:40:00 2020-12-07 12:40:00 Outpatient CHARLY BATES [facility] [id number] [facility] 2020-12-06 14:40:00 2020-12-06 14:31:29 Outpatient CHARLY BATES [facility] [id number] [facility] 2020-11-17 12:40:00 2020-11-17 12:40:00 Outpatient [facility] [id number] [facility] 2020-11-16 12:40:00 2020-11-16 12:40:00 Outpatient [facility] [id number] [facility] 2020-11-16 12:40:2020-11-16 12:36:53 Outpatient CHARLY BATES [facility] [id number] [facility] 2019-03-19 00:00:00 2019-03-19 00:00:00 Orders Only Doctor Unassigned, [place] [facility] 1.2.840.114 350.1.13.10 4.2.7.2.686 [id number] [id number] 2019-03-19 00:00:00 2019-03-19 00:00:00 Orders Only Doctor Unassigned, [place] [facility] 1.2.840.114 350.1.13.10 4.2.7.2.686 [id number] [id number] [facility] 2016 00:00:00 2016 00:00:00 Orders Only Doctor Unassigned, [place] [facility] 1.2.840.114 350.1.13.10 4.2.7.2.686 [id number] 009 [id number] 2016 00:00:00 2016 00:00:00 Orders Only Doctor Unassigned, [place] [facility] 1.2.840.114 350.1.13.10 4.2.7.2.686 [id number] [id number] [facility] 2015-05-25 00:00:00 2015-05-25 00:00:00 Orders Only Doctor Unassigned, [place] [facility] 1.2.840.114 350.1.13.10 4.2.7.2.686 [id number] [id number] 2015-05-25 00:00:00 2015-05-25 00:00:00 Orders Only Doctor Unassigned, [place] [facility] 1.2.840.114 350.1.13.10 4.2.7.2.686 [id number] [id number] [facility] 2015-04-20 00:00:00 2015-04-20 00:00:00 Orders Only Doctor Unassigned, [place] [facility] 1.2.840.114 350.1.13.10 4.2.7.2.686 [id number] [id number] 2015-04-20 00:00:00 2015-04-20 00:00:00 Orders Only Doctor Unassigned, [place] [facility] 1.2.840.114 350.1.13.10 4.2.7.2.686 [id number] [id number] [facility] 2014-07-14 00:00:00 2014-07-14 00:00:00 Orders Only Doctor Unassigned, [place] [facility] 1.2.840.114 350.1.13.10 4.2.7.2.686 [id number] [id number] 2014-07-14 00:00:00 2014-07-14 00:00:00 Orders Only Doctor Unassigned, [place] [facility] 1.2.840.114 350.1.13.10 4.2.7.2.686 [id number] [id number] [facility] 2014-07-04 00:00:00 2014-07-04 00:00:00 Orders Only Doctor Unassigned, [place] [facility] 1.2.840.114 350.1.13.10 4.2.7.2.686 [id number] [id number] 2014-07-04 00:00:00 2014-07-04 00:00:00 Orders Only Doctor Unassigned, [place] [facility] 1.2.840.114 350.1.13.10 4.2.7.2.686 [id number] [id number] [facility] Results Test Description Test Time Test Comments Results Result Co mments Source [facility] Medicalurinalysis, [id number] 09:52:37* Test Item Value Reference Range Interpretation Comme nts Leukocytes (test code = Leukocytes) Negative Nitrite (test code = Nitrite) negative Urobilinogen (test code = Urobilinogen) Normal Protein (test code = Protein) Negative pH (test code = pH) 6.5 Blood (test code = Blood) Negative Specific Bennett (test code = Specific Bennett) 1.015 Ketone (test code = Ketone) Negative Bilirubin (test code = Bilirubin) Negative Glucose (test code = Glucose) Negative Appearance (test code = Appearance) Clear Color (test code = Color) Pale Yellow [facility] Medicalmeasurement of post-voiding residual urine and/or bladder capacity (PROC)2024-06-11 09:50:26* Test Item Value Reference Range Interpretation Comme nts (PVR) (test code = (PVR)) 24 mL [facility] MedicalHCG SERUM [id number] 16:14:00* Test Item Value Reference Range Interpretation Comme nts HCG SERUM QUAL (test code = HCGQL) SERUM NEGATIVE SCREEN NEGATIVE URINALYSIS [id number] 16:02:00* Test Item Value Reference Range Interpretation Comme nts UA GLUCOSE DIPSTICK (test code = DGLUU) Negative mg/dL NEGATIVE UA BILIRUBIN DIPSTICK (test code = BILU) Negative NEGATIVE UA KETONE DIPSTICK (test code = KETU) Negative NEGATIVE UA SPECIFIC GRAVITY (test code = SGU) 1.015 1.005-1.015 UA BLOOD DIPSTICK (test code = IDALIA) Negative NEGATIVE UA PH DIPSTICK (test code = PACO) 7.0 5.0-7.0 UA PROTEIN DIPSTICK (test code = PROU) Negative mg/dL NEGATIVE UA UROBILINIOGEN DIPSTICK (test code = URO) 0.2 EU/dL See_Comment [Automated message] The system which generated this result transmitted reference range: <2.0 EU/dL. The reference range was not used to interpret this result as normal/abnormal. UA NITRITE DIPSTICK (test code = JAK) Negative NEGATIVE UA LEUKOCYTE ESTERASE DIPSTICK (test code = LEUU) Negative NEGATIVE Urine Specimen Type: Clean CatchCBC W/O [id number] 16:00:00* Test Item Value Reference Range Interpretation Comme nts WHITE BLOOD CELL (test code = WBC) 9.9 K/mm3 3.5-11.0 N RED BLOOD CELL (test code = RBC) 4.15 M/mm3 4.70-6.10 L HEMOGLOBIN (test code = HGB) 13.2 G/DL 10.4-14.9 N HEMATOCRIT (test code = HCT) 40.4 % 31.5-44.1 N MEAN CELL VOLUME (test code = MCV) 97.3 Fl 84.5-98.6 N MEAN CELL HGB (test code = MCH) 31.8 pg 27.0-34.2 N MEAN CELL HGB CONCETRATION ( test code = MCHC) 32.7 G/DL 31.5-34.0 N RED CELL DISTRIBUTION WIDTH (test code = RDW) 13.2 SD 11.5-14.5 N PLATELET COUNT (test code = PLT) 328 K/mm3 150-450 N MEAN PLATELET VOLUME (test c ode = MPV) 11.10 fL 7.0-10.5 H urinalysis, [id number] 07:41:00* Test Item Value Reference Range Interpretation Comme nts Leukocytes (test code = Leukocytes) Negative Nitrite (test code = Nitrite) negative Urobilinogen (test code = Urobilinogen) Normal Protein (test code = Protein) Negative pH (test code = pH) 6.0 Blood (test code = Blood) Negative Specific Bennett (test code = Specific Bennett) 1.015 Ketone (test code = Ketone) Negative Bilirubin (test code = Bilirubin) Negative Glucose (test code = Glucose) Negative Appearance (test code = Appearance) Clear Color (test code = Color) Pale Yellow [facility] Medicalurinalysis, [id number] 08:06:00* Test Item Value Reference Range Interpretation Comme nts Leukocytes (test code = Leukocytes) Negative Nitrite (test code = Nitrite) negative Urobilinogen (test code = Urobilinogen) Normal Protein (test code = Protein) Negative pH (test code = pH) 6.0 Blood (test code = Blood) Negative Specific Bennett (test code = Specific Bennett) 1.015 Ketone (test code = Ketone) Negative Bilirubin (test code = Bilirubin) Negative Glucose (test code = Glucose) Negative Appearance (test code = Appearance) Clear Color (test code = Color) Pale Yellow [facility] MedicalUrinalysis macro (dipstick) panel - [id number] 15:39:00* Test Item Value Reference Range Interpretation Comme nts Leukocytes (test code = Leukocytes) Negative Nitrite (test code = Nitrite) negative Urobilinogen (test code = Urobilinogen) 0.2 Protein (test code = Protein) Negative pH (test code = pH) 6.0 Blood (test code = Blood) Negative Specific Bennett (test code = Specific Bennett) 1.010 Ketone (test code = Ketone) Negative Bilirubin (test code = Bilirubin) Negative Glucose (test code = Glucose) Negative Appearance (test code = Appearance) Clear Color (test code = Color) Pale Yellow [facility] Medicalurinalysis, [id number] 15:39:00* Test Item Value Reference Range Interpretation Comme nts Leukocytes (test code = Leukocytes) Negative Nitrite (test code = Nitrite) negative Urobilinogen (test code = Urobilinogen) 0.2 Protein (test code = Protein) Negative pH (test code = pH) 6.0 Blood (test code = Blood) Negative Specific Bennett (test code = Specific Bennett) 1.010 Ketone (test code = Ketone) Negative Bilirubin (test code = Bilirubin) Negative Glucose (test code = Glucose) Negative Appearance (test code = Appearance) Clear Color (test code = Color) Pale Yellow [facility] MedicalUrinalysis macro (dipstick) panel - [id number] 11:38:00* Test Item Value Reference Range Interpretation Comme nts Leukocytes (test code = Leukocytes) Negative Nitrite (test code = Nitrite) negative Urobilinogen (test code = Urobilinogen) Normal Protein (test code = Protein) Negative pH (test code = pH) 6.0 Blood (test code = Blood) Negative Specific Bennett (test code = Specific Bennett) 1.010 Ketone (test code = Ketone) Negative Bilirubin (test code = Bilirubin) Negative Glucose (test code = Glucose) Negative Appearance (test code = Appearance) Clear Color (test code = Color) Yellow [facility] Medicalurinalysis, [id number] 11:38:00* Test Item Value Reference Range Interpretation Comme nts Leukocytes (test code = Leukocytes) Negative Nitrite (test code = Nitrite) negative Urobilinogen (test code = Urobilinogen) Normal Protein (test code = Protein) Negative pH (test code = pH) 6.0 Blood (test code = Blood) Negative Specific Bennett (test code = Specific Bennett) 1.010 Ketone (test code = Ketone) Negative Bilirubin (test code = Bilirubin) Negative Glucose (test code = Glucose) Negative Appearance (test code = Appearance) Clear Color (test code = Color) Yellow [facility] Medicalmeasurement of post-voiding residual urine and/or bladder capacity (PROC)2024-02-04 11:30:00* Test Item Value Reference Range Interpretation Comme nts (PVR) (test code = (PVR)) 17 [facility] MedicalHEMOGLOBIN [id number] 00:00:00* Test Item Value Reference Range Interpretation Comme nts HEMOGLOBIN A1c (test code = 4548-4) 5.8 % See_Comment H [Automated messa ge] The system which generated this result transmitted reference range: 4.2-5.6 %. The reference range was not used to interpret this result as normal/abnormal. HEMOGLOBIN [id number] 00:00:00* Test Item Value Reference Range Interpretation Comme nts HEMOGLOBIN A1c (test code = 4548-4) 5.8 % See_Comment H [Automated messa ge] The system which generated this result transmitted reference range: 4.2-5.6 %. The reference range was not used to interpret this result as normal/abnormal. Notes Date/Time Note Provider Source 2024-06-07 17:37:00 [id number] [facility] [id number] [place] [id number] PATIENT NAME: CLARITA MCKNIGHT ADMIT DATE: 06/07/24 ACCOUNT NO: [id number] ROOM NO: AGE: 43 REPORT TYPE: OPERATIVE REPORT SEX: F ADMITTING PHYSICIAN: ATTENDING PHYSICIAN: Itzel Vora MD OPERATION DATE: 06/07/2024 PREOPERATIVE DIAGNOSES: Pelvic pain, back pain and stress urinary incontinence. POSTOPERATIVE DIAGNOSES: Pelvic pain, back pain and stress urinary incontinence. PROCEDURES PERFORMED: 1. Diagnostic laparoscopy, round ligament suspected endometriosis excision. 2. Urethral bulking with Bulkamid and cystoscopy. SURGEON: Itzel Vora MD [employer]: Fransisca Tian. ANESTHESIA: General endotracheal. FINDINGS: Right round ligament stump with pale endo implant was noted and the right IP with varicosities was noted. Appendix was unremarkable. No other endometriosis was noted. The pelvic cavity was closely examined for signs of a Y mesh or uterosacral colpopexy and there were none. On vaginal exam, there was no evidence of other suburethral incision or a sling that if possible and I have a good clinical exam. Then, 1 mL of the bulking agent Bulkamid was injected in four spots in the mid urethra. The patient's POP-Q was -7 without any significant anterior wall prolapse, most of the prolapse was in the mid to distal posterior wall, just have a stage I. Complete removal of tubes, ovaries and uterus was noted and left colon had adhesions to the left lateral wall as well as the pericolic gutter. INDICATIONS: The patient is a 43-year-old female status post hysterectomy, history of removal of tubes, and ovaries for pelvic pain at [facility]. She also reported a suspension procedure of her bladder or vagina, but we did not find any notes reflecting this patient is not an optimal historian. With her complaints of pelvic pain and back pain and stress urinary incontinence, she underwent evaluation for incontinence. Ultrasound and MRI of the pelvis did not have any evidence of a pelvic mass. Given her urethral symptoms, we did an MRI of the sulcus to rule out a urethral diverticulum and this was not found. PATIENT NAME: CLARITA MCKNIGHT Then, we offered the patient the options of observation with pelvic floor therapy. As the second option, a urethral bulking agent was offered for her GABINO and a diagnostic laparoscopy for ensuring that there was no ovarian tissue or endometriosis or both left behind in her pelvis. She consented for this procedure and she was brought to the OR. DESCRIPTION OF PROCEDURE: After informed consent was re-verified, she was taken back to the OR. She was placed in supine fashion on operating table. General anesthesia was given. She was placed in dorsal lithotomy position using Charlie stirrups. Abdomen was prepped with ChloraPrep, and vulva, vagina, and perineum with Betadine. Speculum placed to expose the vagina for doing the POP-Q and the findings are as above. A sponge on a stick was placed in the vaginal canal for retraction and a 16-South African Whitley in the bladder, this was draped. Diagnostic laparoscopy: A similar infraumbilical incision was made with a scalpel after injecting dilute Marcaine. A #11 blade was used to make a fascial incision as well and this was tagged with 0 Vicryl sutures and peritoneum was entered sharply. Lopez was introduced. There was no evidence of any significant adhesions in her pelvic cavity. She was placed in Trendelenburg position and all upper abdominal surface is negative for endometriosis or other adhesions. The left paracolic gutter with adhesions, but once the pelvic cavity was surveyed closely, the suspicious implants of endometriosis in the distal right round ligament stump. Five suprapubic and left lower quadrant ports were placed under direct vision and this endometriotic area was excised with the help of a grasper and LigaSure. The entire distal stump was removed and handed off for pathology. There was varicosities in the right IP, but no other abnormal pathology. A thorough irrigation and suction was performed after removal. The gas was desufflated, ports were removed under direct vision. Fascia at the umbilicus closed with the tagged 0 Vicryl sutures tied to each other interrupted 4-0 Monocryl sutures for all skin incisions and skin glue for skin. The Whitley and sponge on the stick was removed. Urethral bulking: The bulking agent was fixed onto the needle. Then, the 0-degree pediatric cystoscope was used to run the saline solution. Once there was a strong drip, the cystoscope was introduced through the internal meatus, then the needle was advanced 2 cm into the bladder. This was drawn back 2 cm into the mid urethra with the bevel facing down. Four injections were made in the mid urethral zone starting at 5 o'clock, 2 o'clock, 11 o'clock and 7 o'clock positions and 1 mL in total was injected at all port sites and there was a good occlusion of the urethra. A 14-South African Whitley was passed through this. The bladder was drained and refilled and it was 200, then the catheter was removed. The patient was recovered from anesthesia. Both ureteric orifices had strong jets of urine, no evidence of any trauma to the bladder. The patient was recovered from anesthesia and taken to PACU in stable condition and the patient was debriefed about her procedure. Thank you. Dictated By: Itzel Vora MD Date Dictated: 06/07/2024 17:37:01 Date Transcribed: 06/07/2024 19:21:30 PATIENT NAME: GAILCLARITA SADIA/SVITLANA/RODO/NELSON/JONATHON Receipt ID: [id number] Authenticated by Itzel Vora MD On 08/30/2024 12:13:46 PM at 1213 PATIENT NAME: CLARITA MCKNIGHT [facility] 2024-06-07 16:17:00 [facility] ([facility]) Post Anesthesia Evaluation REPORT#:[id number] REPORT STATUS: Signed REPORT INITIALIZATION DATE:06/07/24 TIME:1617 PATIENT: CLARITA BELL UNIT #: [id number] ROOM/BED: : 78 AGE: 43 SEX: F ATTEND: Itzel Vora MD ADM AUTHOR: John Morales MD REPT SERVICE DT/TIME: 06/07/24 1617 * ALL edits or amendments must be made on the electronic/computer document * Post Anesthesia Evaluation Anes. changes from pre-op eval Level of consciousness: no change, patient awake, able to answer questions, participate in this eval. Vital signs: Last Documented: Result Date Time Pulse Ox 100 06/07 160 B/P 109/55 06/07 1603 O2 Delivery Simple mask 06/07 160 O2 Flow Rate 6 06/07 160 Temp 36.2 06/07 1603 Pulse 74 06/07 1603 Resp 14 06/07 1603 Cardiovascular: CV system stable, vital signs stable Respiratory/Airway: respiratory system stable, maintains without support Pain: adequately controlled Hydration: adequate Temp status: normothermic Presence of N/V: no Anesthesia complications: no at 1618 RPT #: [id number] END OF REPORT [facility] 2024-06-07 15:56:00 [facility] ([facility]) Brief Op Note REPORT#:[id number] REPORT STATUS: Signed REPORT INITIALIZATION DATE:06/07/24 TIME:1556 PATIENT: CLARITA BELL UNIT #: [id number] ROOM/BED: : 78 AGE: 43 SEX: F ATTEND: Itzel Vora MD ADM AUTHOR: Itzel Vora MD REPT SERVICE DT/TIME: 06/07/24 1556 * ALL edits or amendments must be made on the electronic/computer document * Op/Inv Proc Note - Brief Pre-procedure diagnosis: pelvic pain, Back pain, GABINO Post-procedure diagnosis: same as pre procedure dx Procedures performed: Diag laparoscopy, Rt round ligament suspected endometriosis excision, Urethral bulking, cystoscopy Primary Surgeon: duncan Chief Nursing Officer(s): mariam lyon Anesthesia: general anesthesia Findings: right round distal stump with pale endo implant, right IP with varicosities, appendix unremarkable, no other endo, 1ml of bulking agent injected in 4 spots in the mid urethra Complications: none Estimated blood loss in ml's: 5 ml Specimens removed/altered: right round ligament stump Drain(s): None Fluids: 700 Urine output: 100 Approach: laparoscopic, vaginal Wound class: clean Disposition: plan to D/C home Counts: Sponge count: correct Instrument count: correct Needle count: correct at 1559 RPT #: [id number] END OF REPORT [facility] 2023-03-10 14:30:00 Addended by: SYDNEE TORRES MD on: 03/17/2023 03:44 PM Modules accepted: Level of Service LIZA-DERMATOLOGY STAFF [facility]
--- NOTE | 2024-11-19 17:38 | EDPHYS ---
Physician Documentation [facility] Name: Brenda Decker Age: 43 yrs Sex: Female : 1980 Arrival Date: 11/19/2024 Time: 16:53 Bed DX3 Private MD: ED Physician Isadora King HPI: 11/19 17:33 This 43 yrs old Female presents to ER via Ambulatory with complaints of Insect Bite. sp3 17:33 43-year-old female with PMH above now presents with small area of erythema between her sp3 fourth and fifth digit of her foot. Patient is being seen by Dr. Dorsey who has her on Bactrim and Cipro and there are 3 was that she had a possible insect bite. Despite no visualized insect or spider historically. Patient denies any fever, systemic pain, pain proximal to the area of erythema, swollen lymph nodes, or any other signs or symptoms on ROS at this time.. 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 - Infectious Disease History:: Denies. - Social history:: Smoking status: Patient reports the use of cigarette tobacco products. ROS: 17:34 Constitutional: Negative for fever, chills, and weight loss, Eyes: Negative for injury, sp3 pain, redness, and discharge, Neck: Negative for injury, pain, and swelling, Cardiovascular: Negative for chest pain, palpitations, and edema, Abdomen/GI: Negative for abdominal pain, nausea, vomiting, diarrhea, and constipation, Back: Negative for injury and pain, MS/Extremity: Negative for injury and deformity, Neuro: Negative for headache, weakness, numbness, tingling, and seizure, Psych: Negative for depression, anxiety, suicide ideation, homicidal ideation, and hallucinations, Allergy/Immunology: Negative for hives, rash, and allergies, Endocrine: Negative for neck swelling, polydipsia, polyuria, polyphagia, and marked weight changes, 17:34 All other systems are negative, Exam: 17:34 Constitutional: This is a well developed, well nourished patient who is awake, alert, sp3 and in no acute distress. Head/Face: Normocephalic, atraumatic. Eyes: Pupils equal round and reactive to light, extra-ocular motions intact. Lids and lashes normal. Conjunctiva and sclera are non-icteric and not injected. Cornea within normal limits. Periorbital areas with no swelling, redness, or edema. Neck: Trachea midline, no thyromegaly or masses palpated, and no cervical lymphadenopathy. Supple, full range of motion without nuchal rigidity, or vertebral point tenderness. No Meningismus. Chest/axilla: Normal chest wall appearance and motion. Nontender with no deformity. No lesions are appreciated. Cardiovascular: Regular rate and rhythm with a normal S1 and S2. No gallops, murmurs, or rubs. Normal PMI, no JVD. No pulse deficits. Respiratory: Lungs have equal breath sounds bilaterally, clear to auscultation and percussion. No rales, rhonchi or wheezes noted. No increased work of breathing, no retractions or nasal flaring. Abdomen/GI: Soft, non-tender, with normal bowel sounds. No distension or tympany. No guarding or rebound. No evidence of tenderness throughout. Back: No spinal tenderness. No costovertebral tenderness. Full range of motion. MS/ Extremity: Pulses equal, no cyanosis. Neurovascular intact. Full, normal range of motion. Neuro: Awake and alert, GCS 15, oriented to person, place, time, and situation. Cranial nerves II-XII grossly intact. Motor strength 5/5 in all extremities. Sensory grossly intact. Cerebellar exam normal. Normal gait. Psych: Awake, alert, with orientation to person, place and time. Behavior, mood, and affect are within normal limits. 17:34 Skin: Small area approximately 6 to 7 mm of erythema just proximal to where the fourth and fifth digit meet on the left foot at the crease. Erythema appears to be going in between the digits. . Vital Signs: 17:24 BP 117 / 79; Pulse 82; Resp 17; Temp 98.2; Pulse Ox 99% ; Weight 68.04 kg; Height 5 ft. jl7 5 in. ; Pain 3/10; 17:24 Body Mass Index 24.96 (68.04 kg, 165.1 cm) jl7 17:24 Pain Scale: Adult jl7 MDM: 17:23 Medical Screening Exam initiated sp3 17:35 Data reviewed: vital signs, nurses notes. ED course: Patient has a small area of sp3 cellulitis only on day 3 of antibiotics. No streaking or other evidence of systemic infection or worsening infection noted. Will add mupirocin topical and continue current regimen. No change recommended from my standpoint. Unknown whether it was insect or local trauma or other etiology behind the small localized infection. No area of fluctuance or abscess noted. Not suspicious for deeper infection or osteomyelitis. Continue Bactrim and Cipro.. Administered Medications: No medications were administered Disposition Summary: 11/19/24 17:37 Discharge Ordered Notes: Location: Home sp3 Condition: Stable sp3 Diagnosis - Cellulitis sp3 Followup: sp3 - With: Private Physician - When: Upon discharge from the Emergency Department - Reason: Recheck today's complaints, Continuance of care Discharge Instructions: - Discharge Summary Sheet sp3 - Cellulitis, Adult sp3 Forms: - Medication Reconciliation Form sp3 - Antibiotic Education sp3 - Prescription Opioid Use sp3 - Patient Portal Instructions sp3 - Leadership Thank You Letter sp3 Prescriptions: - mupirocin 2 % Topical ointment - apply 1 application TOPICAL route 4 times per day; 1 Each; Refills: 0, Product sp3 Selection Permitted Signatures: Morales Duran RN RN jl7 Isadora King MD MD sp3 Corrections: (The following items were deleted from the chart) 17:34 17:34 Constitutional: Negative for fever, chills, and weight loss, Eyes: Negative for sp3 injury, pain, redness, and discharge, Neck: Negative for injury, pain, and swelling, Cardiovascular: Negative for chest pain, palpitations, and edema, Abdomen/GI: Negative for abdominal pain, nausea, vomiting, diarrhea, and constipation, Back: Negative for injury and pain, MS/Extremity: Negative for injury and deformity, Skin: Negative for injury, rash, and discoloration, Neuro: Negative for headache, weakness, numbness, tingling, and seizure, Psych: Negative for depression, anxiety, suicide ideation, homicidal ideation, and hallucinations, Allergy/Immunology: Negative for hives, rash, and allergies, Endocrine: Negative for neck swelling, polydipsia, polyuria, polyphagia, and marked weight changes, sp3 17:38 17:35 ED course: Patient has a small area of cellulitis only on day 3 of antibiotics. sp3 No streaking or other evidence of systemic infection or worsening infection noted. Will add mupirocin topical and continue current regimen. No change recommended from my standpoint. Unknown whether it was insect or local trauma or other etiology behind the small localized infection. No area of fluctuance or abscess noted. Not suspicious for deeper infection or osteomyelitis.. sp3
--- NOTE | 2024-11-19 17:38 | ER ---
Nurse's Notes [facility] [place], [place] Name: Brenda Decker Age: 43 yrs Sex: Female : 1980 Arrival Date: 11/19/2024 Time: 16:53 Bed DX3 Private MD: Diagnosis: Cellulitis Presentation: 11/19 17:24 Chief complaint: Patient states: Wound to left foot in between first and second toes, jl7 on Cipro and Bactrim since Friday. Coronavirus screen: At this time, the client does not indicate any symptoms associated with coronavirus-19. Ebola Screen: No symptoms or risks identified at this time. Initial Sepsis Screen: Does the patient meet any 2 criteria? No. Patient's initial sepsis screen is negative. Does the patient have a suspected source of infection? No. Patient's initial sepsis screen is negative. Risk Assessment: Do you want to hurt yourself or someone else? Patient reports no desire to harm self or others. Onset of symptoms is unknown. 17:24 Method Of Arrival: Ambulatory jl7 17:24 Acuity: BIGG 4 jl7 Triage Assessment: 17:28 General: Appears in no apparent distress. uncomfortable, Behavior is calm, cooperative, jl7 appropriate for age. Pain: Complains of pain in left foot Pain currently is 3 out of 10 on a pain scale. 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 - Infectious Disease History:: Denies. - Social history:: Smoking status: Patient reports the use of cigarette tobacco products. Screenin:41 [facility] ED Fall Risk Assessment (Adult) History of falling in the last 3 months, jl7 including since admission No falls in past 3 months (0 pts) Confusion or Disorientation No (0 pts) Intoxicated or Sedated No (0 pts) Impaired Gait No (0 pts) Mobility Assist Device Used No (0 pt) Altered Elimination No (0 pt) Score/Fall Risk Level 0 - 2 = Low Risk Oriented to surroundings, Maintained a safe environment. Abuse screen: Denies threats or abuse. Denies injuries from another. Nutritional screening: No deficits noted. Tuberculosis screening: No symptoms or risk factors identified. Vital Signs: 17:24 BP 117 / 79; Pulse 82; Resp 17; Temp 98.2; Pulse Ox 99% ; Weight 68.04 kg; Height 5 ft. jl7 5 in. ; Pain 3/10; 17:24 Body Mass Index 24.96 (68.04 kg, 165.1 cm) jl7 17:24 Pain Scale: Adult jl7 ED Course: 17:03 Patient arrived in ED. cj3 17:06 Isadora King MD is Attending Physician. sp3 17:26 Triage completed. jl7 17:28 Arm band placed on right wrist. jl7 17:41 Patient has correct armband on for positive identification. Provided Education on: use jl7 of call wynne. 17:41 No provider procedures requiring assistance completed. Patient did not have IV access jl7 during this emergency room visit. Administered Medications: No medications were administered Medication: 17:41 VIS not applicable for this client. jl7 Outcome: 17:37 Discharge ordered by . sp3 17:41 Discharged to home ambulatory, jl7 17:41 Condition: stable 17:41 Discharge instructions given to patient, Instructed on discharge instructions, follow up and referral plans. medication usage, Demonstrated understanding of medications, Prescriptions given X 1, 17:42 Patient left the ED. jl7 Signatures: Morales Duran, RN RN jl7 Isadora King MD MD sp3 Meg Dawson cj3
[2024-11-19 18:15] VITALS: BP 117/79; TEMP 98.2; O2SAT 99
== END 2024-11-19 17:42 | disposition home or self-care (01) ==
LOC: ER 16:53
DX: L03.116 Cellulitis of left lower limb (principal)
CPT/HCPCS: 99283